=== PATIENT | female | born 1950 | race Caucasian/White ===

== ENCOUNTER 2023-03-21 15:26 | Outpatient (AMB) | payer MEDICARE, SELFPAY ==
[2023-03-21 16:26] VITALS: BP 124/74; PULSE 76; TEMP 36.6; O2SAT 98; BMI 41.9
--- NOTE | 2023-03-21 16:26 | AM.OFFWIN_ITS ---
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 ([phone]) Intake Note: pt is here for left ankle pain with swelling Patient Tobacco Use Status: Never used Tobacco Allergies No Known Allergies Allergy (Verified 03/24/23 17:19) Medication List - Last Reconciled 03/24/23 by Arya Mckeon MD escitalopram oxalate (Lexapro) 10 mg PO DAILY fluticasone propion-salmeterol 115-21 mcg/actuation (Advair HFA) 2 puffs inhalation BID loratadine (Claritin) 10 mg PO DAILY meloxicam 15 mg PO DAILY omeprazole 20 mg PO DAILY Do you need a note to return to daycare/school/sports/work: No 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 for a sick visit. Patient is relocating from [place]. In June of last year she had a fracture of the left ankle. No surgical procedure was done. Now in the past month she is having pain in the same area. Patient is using a cane to ambulate. [facility] Social History Patient Tobacco Use Status: Never used Tobacco Physical Exam Vital Signs: Last Vital Signs Temp 97.8 F 03/21/23 16:26 Pulse 76 03/21/23 16:26 BP 124/74 03/21/23 16:26 Pulse Ox 98 03/21/23 16:26 Oxygen Delivery Method Room Air 03/21/23 16:26 BMI result Body Mass Index 41.9 Back/Spine/Pelvis Other: Left ankle: Tenderness over the lateral malleolus. Pain on flexion and extension of the foot. Extrem Other: Ankle: Minimal swelling. Pain on flexion and extension. Tenderness around the malleoli Assessment & Plan Assessment & Plan (1) Right ankle sprain: Code(s): S93.401A - Sprain of unspecified ligament of right ankle, initial encounter Qualifiers: Encounter type: initial encounter Involved ligament of ankle: other ligament Qualified Code(s): S93.491A - Sprain of other ligament of right ankle, initial encounter Plan X-ray images were personally reviewed by me. No fractures seen. Reassurance. Meloxicam provided. If symptoms do not improve to follow-up here. Orders: Orders XR ankle LT min 3V 03/21/23 S93.402A - Sprain of unspecified ligament of left ankle, initial encounter Medications: New meloxicam 15 mg PO DAILY 14 tabs 0RF Coding Level of Care Code Est Pt Level 4 (49049) Diagnoses Sprain of other ligament of right ankle, initial encounter S93.491A Encounter type: initial encounter Involved ligament of ankle: other ligament
== END 2023-03-21 17:01 | disposition home or self-care (01) ==
PROVIDERS: PCP Internal Medicine; Visit Provider Internal Medicine
DX: S93.491A Sprain of other ligament of right ankle, initial encounter (principal)
CPT/HCPCS: 99214

== ENCOUNTER 2023-03-21 16:43 | Outpatient (REF) | payer MEDICARE, SELFPAY ==
--- NOTE | ~2023-03-21 | XR_ITS ---
EXAMINATION: XR ANKLE, LEFT CLINICAL INFORMATION: Sprain COMPARISON: None available. TECHNIQUE: AP, lateral, and mortise views of the left ankle. FINDINGS: Old healed distal fibular shaft fracture. No acute fracture or dislocation. Mild arthritis at the talar fibular joint. The ankle mortise is otherwise normal. Small plantar calcaneal spur. Normal soft tissues. XR/XR ankle LT min 3V IMPRESSION: No acute fracture or dislocation. Old healed distal fibular shaft fracture and degenerative changes at the lateral ankle joint.
== END 2023-03-21 16:44 | disposition home or self-care (01) ==
LOC: HO.HMGCX 16:43
PROVIDERS: PCP Internal Medicine; Visit Provider Internal Medicine
DX: S93.402A Sprain of unspecified ligament of left ankle, initial encounter (principal); X58.XXXA Exposure to other specified factors, initial encounter; Y93.9 Activity, unspecified; Y92.9 Unspecified place or not applicable; Y99.9 Unspecified external cause status
CPT/HCPCS: 73610

== ENCOUNTER 2023-06-16 09:57 | Outpatient (AMB) | payer MEDICARE, SELFPAY ==
--- NOTE | 2023-06-16 09:59 | MHC.PC.OV ---
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 Intake Note: Pt is here to [facility] care pt thinks last colon screen was last year last mammo was more then a year she thinks last Pap was December 2021 Allergies No Known Allergies Allergy (Verified 06/16/23 10:21) Medication List - Last Reconciled 06/16/23 by Anny Gallo MD cholecalciferol (vitamin D3) 25 mcg PO DAILY escitalopram oxalate 40 mg PO DAILY fluticasone propion-salmeterol 115-21 mcg/actuation (Advair HFA) 2 puffs inhalation BID fluticasone propionate 50 mcg/actuation (Flonase Allergy Relief) 2 sprays intranasal DAILY loratadine (Claritin) 10 mg PO DAILY omeprazole 20 mg PO DAILY Tobacco use date assessed: 06/16/23 Fall risk assessment: 1 Fall in past year Last assessed Fall Risk: 06/16/23 Dental Screening Dental Screen Date: 06/16/23 Did you have a dental visit in the last 12 months?: Yes Did you have a dental problem in the last 6 months where you did not have access to dental care?: No Was dental information given to patient?: Patient has 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 She just moved here from [place] last November 2022 . She has mild intermittent asthma complete shoulder on Advair and rarely needing to use her albuterol inhaler . She has osteoarthritis in her hip and right knee, status post left hip replacement in 2017, and underwent a revision of her surgery in 2020, now with good results. She has anxiety depression, stable and controlled on escitalopram 40 mg daily, which she has been on now for years. She has history of peptic ulcer disease and now is taking omeprazole as needed for her heartburn symptoms. Her last upper endoscopy was several years ago. However she states that she had a colonoscopy done in 2016, with the removal of a precancerous polyp. Patient states that she had a repeat colonoscopy done a year ago with negative findings, no polyps seen, and was told that she needs a repeat colonoscopy in 10 years . She takes loratadine and Flonase for her allergic rhinitis, has had allergy shots in the past which she states did not help at all. She states that she still gets Pap smears every 2 years at least, last 1 was done in 2021 with negative findings, and she states that she has had a mammogram last year with normal findings as well. Copy of her medical records were requested from [place]. [facility] Medical History (Updated 06/16/23 @ 11:51 by Anny Gallo MD) Allergic rhinitis Anxiety and depression Hyperlipidemia GERD (gastroesophageal reflux disease) History of peptic ulcer Mild intermittent asthma History of COVID-19 History of fracture of left ankle Surgical History (Updated 06/16/23 @ 10:51 by Anny Gallo MD) Status post total hip replacement, left Social History Housing: [facility] Patient Tobacco Use Status: Former Tobacco user e-Cigarette/Vaping Use: Never Used Second Hand Smoke Exposure: No Current occupational status: retired Cognitive needs: No Hearing needs: No Vision needs: No Questionnaire PHQ-9 Over the last 2 weeks, how often have you been bothered by any of the following problems? 1. Little interest or pleasure in doing things: not at all 2. Feeling down, depressed, or hopeless: not at all 3. Trouble falling or staying asleep, or sleeping too much: not at all 4. Feeling tired or having little energy: not at all 5. Poor appetite or overeating: not at all 6. Feeling bad about yourself - or that you are a failure or have let yourself or your family down: not at all 7. Trouble concentrating on things, such as reading the newspaper or watching television: not at all 8. Moving or speaking so slowly that other people could have noticed. Or the opposite - being so fidgety or restless that you have been moving around a lot more than usual: not at all 9. Thoughts that you would be better off or of hurting yourself in some way: not at all Total score: 0 Depression Screening Interpretation: Negative (Has anxiety depression , stable and controlled on escitalopram) Depression Screening Done: Yes 40014 - PHQ-9 Billing: Yes Source: Developed by Drs. Keyonna Craig, Kendell Shipman and colleagues, with an educational jesus from [employer]. Thrive Questionnaire Date Thrive assessed: 06/16/23 I am a: Patient What is your living situation today?: I have a steady place to live Within the past 12 months, did the food you bought not last and you didn't have the money to get more?: Never true Within the past 12 months, did you worry whether your food would run out before you got money to buy more?: Never true Do you have trouble paying for medicines?: No Do you have trouble getting transportation to medical appointments?: No Do you have trouble paying your heating and electricity bill?: No Do you have trouble taking care of your child, family member or friend?: No Do you have trouble with day-to-day activities such as bathing, preparing meals, shopping, managing finances, etc.?: No Are you currently unemployed and looking for a job?: No Are you interested in more education?: No AUDIT C Alcohol Use Questionnaire (AUDIT-C) 1. How often do you have a drink containing alcohol?: Never Total Score: 0 CARLITA-7 AMB Questionnaire CARLITA-7 Date CARLITA - 7 assessed: 06/16/23 Feeling nervous, anxious, or on edge: 0 = Not at all Not being able to stop or control worryin = Not at all Worrying too much about different things: 0 = Not at all Trouble relaxin = Not at all Being so restless that it is hard to sit still: 0 = Not at all Becoming easily annoyed or irritable: 0 = Not at all Feeling afraid as if something awful might happen: 0 = Not at all Total CARLITA-7 score (0-4 normal; 5-9 mild; 10-14 moderate; 15-21 severe): 0 Source: Developed by Drs. Yang Ryan, Keyonna Delacruz, Kendell Shipman and colleagues, with an educational jesus from [employer]. CARLITA-7 Assessment Billing CARLITA-7 Assessment Tool: CARLITA-7 Assessment 08791 Review of Systems Const Denies body aches, Denies fatigue, Denies fever(s), Denies headache(s) and Denies weakness Eyes Denies change in vision, Denies eye discharge and Denies itchy eyes ENT Denies dizziness, Denies headache(s), Denies nasal congestion, Denies nasal discharge and Denies sore throat Card Denies chest pain, Denies lightheadedness, Denies palpitations and Denies dyspnea Resp Denies chest congestion, Denies cough, Denies dyspnea and Denies wheezing GI Denies abdominal pain, Denies melena, Denies hematochezia, Denies change in bowel habits and Denies heartburn (Controlled on omeprazole) Reports no additional complaints, Denies hematuria, Denies urinary frequency, Denies dysuria and Denies urinary urgency Musc Reports stiffness Skin/Breast Denies breast pain, Denies breast mass, Denies lesions and Denies rash Neuro Denies dizziness, Denies headache(s) and Denies weakness Psych Reports as per HPI Endo Denies fatigue, Denies polydipsia, Denies polyuria and Denies palpitations Elliott/Lymph Denies easy bruising Aller/Immun Denies itchy eyes, Denies seasonal rhinorrhea and Denies wheezing Physical exam (Primary Care) Vital Signs: Last Vital Signs Pulse 68 06/16/23 10:00 BP 134/76 06/16/23 10:00 Pulse Ox 95 06/16/23 10:00 Oxygen Delivery Method Room Air 06/16/23 10:00 BMI result Body Mass Index 43.6 BMI Assessment/Plan discussion: High BMI High, discussed plan: lifestyle, weight reduction, dietary and physical activity Tobacco/Smoking Status: Tobacco use Status Tobacco use date assessed 06/16/23 06/16/23 10:08 Patient Tobacco Use Status Former Tobacco user 06/16/23 10:08 e-Cigarette/Vaping Use Never Used 06/16/23 10:08 Depression Screening Interpretation: Negative (Has anxiety depression , stable and controlled on escitalopram) Const General: comfortable, no acute distress and alert Nutritional Appearance: obese Orientation/consciousness: patient oriented x3 Limitations: no limitations HENMT Head: Yes normocephalic Ears: external ears normal General nose exam: Normal external nose present Face and sinus: Yes face symmetric Mouth: Normal oral and palatal mucosa present, oropharynx normal and moist mucous membranes Eyes General: appearance normal, both eyes and all related structures Periorbital: periorbital findings normal Eyelids: Yes eyelids normal Conjunctivae: conjunctivae normal Sclerae: sclerae normal EOM: EOMs intact bilaterally Neck Neck: Yes full ROM, Yes no lymphadenopathy and Yes supple Resp Effort & Inspection: normal respiratory effort and able to speak in complete sentences Auscultation: clear to auscultation bilaterally Cardio Rate: regular rate Rhythm: regular rhythm Heart sounds: S1 normal heart sound present and S2 normal heart sound present GI Palpation (GI): Soft to palpation, nontender and no masses Auscultation: normal bowel sounds Back/Spine/Pelvis Back: No back tenderness Neuro General: patient oriented x3, gait normal, tone normal, moves all extremities, Normal light touch and pain sensation and no focal motor deficits Cranial nerves: Yes CN's II-XII intact bilaterally Cognition (Neuro): normal cognition Extrem General: Yes full ROM and Yes no joint enlargement Psych Appearance: grossly normal and well kempt Mental Status: mental status grossly normal Speech and movement: Normal speech and movement present Affect: normal affect Attitude: cooperative Thought process: Normal thought process present Thought content: Normal thought content present, suicidality and no homicidality Assessment and Plan Assessment & Plan (1) Hyperlipidemia: Code(s): E78.5 - Hyperlipidemia, unspecified Plan: Fasting lipid panel ordered (2) GERD (gastroesophageal reflux disease): Code(s): K21.9 - Gastro-esophageal reflux disease without esophagitis Plan: Currently on omeprazole, CBC ordered (3) Mild intermittent asthma: Code(s): J45.20 - Mild intermittent asthma, uncomplicated Qualifiers: Asthma complication type: unspecified Qualified Code(s): J45.20 - Mild intermittent asthma, uncomplicated Plan: Continue with Advair and albuterol as needed. Already had her COVID booster and her flu shot as well as RSV, states that she had a pneumonia vaccine given by her previous PCP, waiting for copy of medical records from previous PCP (4) Allergic rhinitis: Code(s): J30.9 - Allergic rhinitis, unspecified Qualifiers: Allergic rhinitis trigger: unspecified Allergic rhinitis seasonality: non-seasonal Qualified Code(s): J30.89 - Other allergic rhinitis Plan: Refills prescription for Flonase and loratadine (5) Anxiety and depression: Code(s): F41.9 - Anxiety disorder, unspecified; F32.A - Depression, unspecified Plan: Stable controlled on escitalopram, refill sent for 40 mg once a day declines referral for therapy, states she does not needed anymore Orders: Orders Lipid Panel Today E78.5 - Hyperlipidemia, unspecified, E89.40 - Asymptomatic postprocedural ovarian failure, F32.A - Depression, unspecified, F41.9 - Anxiety disorder, unspecified, J45.20 - Mild intermittent asthma, uncomplicated, K21.9 - Gastro-esophageal reflux disease without esophagitis, Z86.16 - Personal history of COVID-19, Z87.11 - Personal history of peptic ulcer disease, Z87.81 - Personal history of (healed) traumatic fracture, Z96.642 - Presence of left artificial hip joint Complete Blood Count Auto Diff Today E78.5 - Hyperlipidemia, unspecified, E89.40 - Asymptomatic postprocedural ovarian failure, F32.A - Depression, unspecified, F41.9 - Anxiety disorder, unspecified, J45.20 - Mild intermittent asthma, uncomplicated, K21.9 - Gastro-esophageal reflux disease without esophagitis, Z86.16 - Personal history of COVID-19, Z87.11 - Personal history of peptic ulcer disease, Z87.81 - Personal history of (healed) traumatic fracture, Z96.642 - Presence of left artificial hip joint Comprehensive [place]. Panel Fast Today E78.5 - Hyperlipidemia, unspecified, E89.40 - Asymptomatic postprocedural ovarian failure, F32.A - Depression, unspecified, F41.9 - Anxiety disorder, unspecified, J45.20 - Mild intermittent asthma, uncomplicated, K21.9 - Gastro-esophageal reflux disease without esophagitis, Z86.16 - Personal history of COVID-19, Z87.11 - Personal history of peptic ulcer disease, Z87.81 - Personal history of (healed) traumatic fracture, Z96.642 - Presence of left artificial hip joint Vitamin D 25-OH Total Today E78.5 - Hyperlipidemia, unspecified, E89.40 - Asymptomatic postprocedural ovarian failure, F32.A - Depression, unspecified, F41.9 - Anxiety disorder, unspecified, J45.20 - Mild intermittent asthma, uncomplicated, K21.9 - Gastro-esophageal reflux disease without esophagitis, Z86.16 - Personal history of COVID-19, Z87.11 - Personal history of peptic ulcer disease, Z87.81 - Personal history of (healed) traumatic fracture, Z96.642 - Presence of left artificial hip joint Medications: New escitalopram oxalate 40 mg (2 x 20 mg) PO DAILY 3 months 180 tabs 3RF fluticasone propionate 50 mcg/actuation (Flonase Allergy Relief) administer into each nostril 2 sprays intranasal DAILY 3 months 3 inhalers 3RF loratadine (Claritin) 10 mg PO DAILY 90 tabs 3RF omeprazole 20 mg PO DAILY 90 caps 3RF Changed From fluticasone propion-salmeterol 115-21 mcg/actuation (Advair HFA) 1 puff inhalation BID To fluticasone propion-salmeterol 115-21 mcg/actuation (Advair HFA) 1 puff inhalation BID 3 months 36 grams 3RF Refilled loratadine (Claritin) 10 mg PO DAILY 90 tabs 3RF Coding Level of Care Code New Pt Level 4 (45987) Diagnoses Hyperlipidemia E78.5 GERD (gastroesophageal reflux disease) K21.9 Mild intermittent asthma, unspecified whether complicated J45.20 Asthma complication type: unspecified Non-seasonal allergic rhinitis, unspecified trigger J30.89 Allergic rhinitis trigger: unspecified Allergic rhinitis seasonality: non-seasonal Anxiety and depression F41.9; F32.A Additional Codes CARLITA-7 Assessment Billing - CARLITA-7 Assessment Tool: CARLITA-7 Assessment 66841 ([id number])
[2023-06-16 10:00] VITALS: BP 134/76; PULSE 68; O2SAT 95; BMI 43.6
== END 2023-06-16 11:07 | disposition home or self-care (01) ==
PROVIDERS: PCP Internal Medicine; Visit Provider Internal Medicine
DX: E78.5 Hyperlipidemia, unspecified (principal); K21.9 Gastro-esophageal reflux disease without esophagitis; J45.20 Mild intermittent asthma, uncomplicated; J30.89 Other allergic rhinitis; F41.9 Anxiety disorder, unspecified; F32.A Depression, unspecified
CPT/HCPCS: 99204

== ENCOUNTER 2023-06-16 11:07 | Outpatient (REF) | payer MEDICARE, SELFPAY ==
[2023-06-16 13:45] LABS: MANUAL DIFF FLAG NO
[2023-06-16 13:54] LABS: Basophils Percent Auto 0.4 % (0-2); Eosinophils Absolute Auto 0.1 X10*3/uL (0.0-0.4); Eosinophils Percent Auto 1.3 % (0-4); Hematocrit 40.2 % (37.0-47.0); Imm Gran Abs Auto 0.02 X10*3/uL (0.00-0.03); Imm Gran Pct Auto 0.4 % (0.0-0.4); Lymphocytes Absolute Auto 1.6 X10*3/uL (1.2-4.9); Lymphocytes Percent Auto 30.6 % (20-40); Mean Corpuscular HGB Conc 32.3 g/dl (31.0-35.0); Mean Corpuscular Hemoglobin 29.8 pg (27.0-33.0); Mean Corpuscular Volume 92.2 fL (80.0-98.0); Mean Platelet Volume 10.3 fL (9.4-12.3); Monocytes Absolute Auto 0.5 X10*3/uL (0.1-1.2); Monocytes Percent Auto 8.9 % (2-11); Neutrophils Absolute Auto 3.1 x10*3/uL (2.0-8.3); Neutrophils Percent Auto 58.4 % (45-73); Platelet Count 245 X10*3/uL (160-400); Red Blood Count 4.36 X10*6/uL (4.20-5.50); Red Cell Distribution Width 13.6 % (11.0-16.0); White Blood Count 5.3 X10*3/uL (4.8-10.8)
[2023-06-16 14:33] LABS: Alanine Aminotransferase 11 U/L (0-31); Albumin Level 4.3 g/dL (3.5-5.0); Alkaline Phosphatase 69 U/L (39-117); Anion Gap 12 (12-20); Aspartate Amino Transferase 20 U/L (5-31); Bilirubin Total 0.7 mg/dL (0.0-1.0); Blood Urea Nitrogen 15 mg/dL (9-16); Calcium 9.9 mg/dL (8.4-10.2); Carbon Dioxide 29 mmol/L (22-29); Chloride 106 mmol/L (96-108); Cholesterol 237 mg/dL (<200); Estimated Glomerular Filt Rate > 60; Glucose Fasting 91 mg/dL (60-99); HDL Cholesterol 84 mg/dL (>40); LDL Cholesterol Calculated 143 mg/dL (<100); Potassium 4.5 mmol/L (3.3-5.1); Sodium 142 mmol/L (135-145); Total Protein 7.4 g/dL (6.5-8.0); Triglycerides 51 mg/dL (<150)
[2023-06-16 15:49] LABS: Vitamin D 25-OH Total 74.5 ng/mL (>30)
== END 2023-06-16 11:08 | disposition home or self-care (01) ==
LOC: HO.HMGCLDS 11:07
PROVIDERS: PCP Internal Medicine; Visit Provider Internal Medicine
DX: E89.40 Asymptomatic postprocedural ovarian failure (principal); J45.20 Mild intermittent asthma, uncomplicated; K21.9 Gastro-esophageal reflux disease without esophagitis; E78.5 Hyperlipidemia, unspecified; F41.9 Anxiety disorder, unspecified; F32.A Depression, unspecified; Z87.11 Personal history of peptic ulcer disease; Z87.81 Personal history of (healed) traumatic fracture; Z86.16 Personal history of COVID-19
CPT/HCPCS: 36415; 80053; 80061; 82306; 85025

== ENCOUNTER 2023-10-02 09:49 | Outpatient (AMB) | payer MEDICARE, SELFPAY ==
--- NOTE | 2023-10-02 10:14 | MHC.PC.OV ---
Vital Signs 10/02/23 10:34 Height 5 ft 5 in Weight 266 lb BMI 44.3 BP 130/78 Blood Pressure Location Lt brachial Position Sitting Pulse 68 Pulse Source Pulse Oximeter Pulse Oximetry (%) 97 Oxygen Delivery Method Room Air Intake Visit Reasons: pre-op Rt eye 4/3 Lt eye 10/31 Dr. Alicea Intake Note: Pt is here today for her pre-op cataract surgery Rt eye 4/3 & Lt eye 10/[address] Alicea Allergies No Known Allergies Allergy (Verified 10/02/23 10:45) Medication List - Last Reconciled 10/02/23 by Anny Gallo MD cholecalciferol (vitamin D3) 25 mcg PO DAILY escitalopram oxalate 40 mg (2 x 20 mg) PO DAILY 3 months fluticasone propion-salmeterol 115-21 mcg/actuation (Advair HFA) 1 puff inhalation BID 3 months fluticasone propionate 50 mcg/actuation (Flonase Allergy Relief) 2 sprays intranasal DAILY 3 months loratadine (Claritin) 10 mg PO DAILY omega-3 fatty acids 1,000 mg PO DAILY omeprazole 20 mg PO DAILY Tobacco use date assessed: 10/02/23 Fall risk assessment: No Falls in past year Last assessed Fall Risk: 10/02/23 Dental Screening Dental Screen Date: 10/02/23 Did you have a dental visit in the last 12 months?: Yes Did you have a dental problem in the last 6 months where you did not have access to dental care?: No Was dental information given to patient?: Patient has dentist HPI pre-op Rt eye 4/3 Lt eye 10/31 Dr. Alicea HPI Details 73-year-old lady with history of anxiety and depression currently stable and controlled on escitalopram 40 mg daily, has gastroesophageal reflux disease controlled on omeprazole, mild intermittent asthma, hyperlipidemia controlled with diet, here today for preoperative exam for her cataract surgery scheduled for 10/11/2023 OD and 11/01/2023 OS , requested by Dr. Alicea. She has been feeling well except for recurrent episodes of pain and stiffness in both knees , right greater than the left. Has been taking Tylenol arthritis which affords only temporary relief PFSH Medical History Bilateral knee pain Allergic rhinitis Anxiety and depression Hyperlipidemia GERD (gastroesophageal reflux disease) History of peptic ulcer Mild intermittent asthma History of COVID-19 History of fracture of left ankle Surgical History Status post total hip replacement, left [facility] Tobacco Use Status: Former Tobacco user e-Cigarette/Vaping Use: Never Used Second Hand Smoke Exposure: No Current occupational status: retired Cognitive needs: No Hearing needs: No Vision needs: No Questionnaire Thrive Questionnaire Date Thrive assessed: 06/16/23 AUDIT C Alcohol Use Questionnaire (AUDIT-C) 1. How often do you have a drink containing alcohol?: Never Total Score: 0 CARLITA-7 AMB Questionnaire CARLITA-7 Date CARLITA - 7 assessed: 06/16/23 Feeling nervous, anxious, or on edge: 1 = Several days Not being able to stop or control worryin = Not at all Worrying too much about different things: 1 = Several days Trouble relaxin = Not at all Being so restless that it is hard to sit still: 0 = Not at all Becoming easily annoyed or irritable: 1 = Several days Feeling afraid as if something awful might happen: 0 = Not at all Total CARLITA-7 score (0-4 normal; 5-9 mild; 10-14 moderate; 15-21 severe): 3 Source: Developed by Drs. Yang Ryan, Keyonna Delacruz, Kendell Shipman and colleagues, with an educational jesus from [employer]. CARLITA-7 Assessment Billing CARLITA-7 Assessment Tool: CARLITA-7 Assessment 91109 Review of Systems Const Denies body aches, Denies fatigue, Denies fever(s), Denies headache(s) and Denies weakness Eyes Reports blurry vision ENT Denies dizziness, Denies headache(s), Denies nasal congestion, Denies nasal discharge and Denies sore throat Card Denies chest pain, Denies lightheadedness, Denies palpitations and Denies dyspnea Resp Denies chest congestion, Denies cough, Denies dyspnea and Denies wheezing GI Denies abdominal pain, Denies melena, Denies hematochezia, Denies change in bowel habits and Denies heartburn (Controlled on omeprazole) Reports no additional complaints, Denies hematuria, Denies urinary frequency, Denies dysuria and Denies urinary urgency Musc Reports as per HPI and Reports stiffness Skin/Breast Denies breast pain, Denies breast mass, Denies lesions and Denies rash Neuro Denies dizziness, Denies headache(s) and Denies weakness Psych Reports as per HPI Endo Denies fatigue, Denies polydipsia, Denies polyuria and Denies palpitations Elliott/Lymph Denies easy bruising Aller/Immun Denies seasonal rhinorrhea and Denies wheezing Physical exam (Primary Care) Vital Signs: Last Vital Signs Pulse 68 10/02/23 10:34 BP 130/78 10/02/23 10:34 Pulse Ox 97 10/02/23 10:34 Oxygen Delivery Method Room Air 10/02/23 10:34 BMI result Body Mass Index 44.3 BMI Assessment/Plan discussion: High BMI High, discussed plan: lifestyle, weight reduction, dietary and physical activity Tobacco/Smoking Status: Tobacco use Status Tobacco use date assessed 10/02/23 10/02/23 10:19 Patient Tobacco Use Status Former Tobacco user 10/02/23 10:15 e-Cigarette/Vaping Use Never Used 10/02/23 10:15 Thrive Assessment: Date of Thrive Assessment Date Thrive assessed 06/16/23 10/02/23 10:15 Const General: comfortable, no acute distress and alert Nutritional Appearance: obese Orientation/consciousness: patient oriented x3 HENMT Head: Yes normocephalic Ears: external ears normal General nose exam: Normal external nose present Face and sinus: Yes face symmetric Mouth: Normal oral and palatal mucosa present, oropharynx normal and moist mucous membranes Eyes General: appearance normal, both eyes and all related structures Periorbital: periorbital findings normal Eyelids: Yes eyelids normal Conjunctivae: conjunctivae normal Sclerae: sclerae normal EOM: EOMs intact bilaterally Neck Neck: Yes full ROM, Yes no lymphadenopathy and Yes supple Resp Effort & Inspection: normal respiratory effort and able to speak in complete sentences Auscultation: clear to auscultation bilaterally Cardio Rate: regular rate Rhythm: regular rhythm Heart sounds: S1 normal heart sound present and S2 normal heart sound present GI Palpation (GI): Soft to palpation, nontender and no masses Auscultation: normal bowel sounds Back/Spine/Pelvis Back: No back tenderness Neuro General: patient oriented x3, gait normal, tone normal, moves all extremities, Normal light touch and pain sensation and no focal motor deficits Cranial nerves: Yes CN's II-XII intact bilaterally Cognition (Neuro): normal cognition Extrem Other: Crepitus noted in both knees General: Yes full ROM Psych Appearance: grossly normal and well kempt Mental Status: mental status grossly normal Speech and movement: Normal speech and movement present Affect: normal affect Attitude: cooperative Thought process: Normal thought process present Thought content: Normal thought content present Assessment and Plan Assessment & Plan (1) Preoperative examination: Code(s): Z01.818 - Encounter for other preprocedural examination Plan: 73 year old lady here for preoperative exam. Pt for cataract surgery, 10/11/2023 OD and 11/01/2023 OS, requested by Dr. Alicea. Preoperative exam is unremarkable. She has a low cardiac risk index for proposed surgery (2) Bilateral knee pain: Code(s): M25.561 - Pain in right knee; M25.562 - Pain in left knee Qualifiers: Chronicity: chronic Qualified Code(s): M25.561 - Pain in right knee; M25.562 - Pain in left knee; G89.29 - Other chronic pain Plan: X-ray of left and right knee ordered, referred to orthopedics for further evaluation and management (3) Allergic rhinitis: Code(s): J30.9 - Allergic rhinitis, unspecified Qualifiers: Allergic rhinitis seasonality: non-seasonal Allergic rhinitis trigger: unspecified Qualified Code(s): J30.89 - Other allergic rhinitis Plan: Refill sent for her Flonase nasal spray (4) Anxiety and depression: Code(s): F41.9 - Anxiety disorder, unspecified; F32.A - Depression, unspecified Plan: Continue with escitalopram 40 mg daily (5) Hyperlipidemia: Code(s): E78.5 - Hyperlipidemia, unspecified Qualifiers: Hyperlipidemia type: pure hypercholesterolemia Qualified Code(s): E78.00 - Pure hypercholesterolemia, unspecified Plan: Continue [place] 3 fatty acid supplement, in addition to adhering to a low-cholesterol diet getting regular exercise (6) Mild intermittent asthma: Code(s): J45.20 - Mild intermittent asthma, uncomplicated Qualifiers: Asthma complication type: unspecified Qualified Code(s): J45.20 - Mild intermittent asthma, uncomplicated Plan: Continue with fluticasone propionate-salmeterol 115-21 mcg per actuation, 1 puff twice a day. Reminded patient to gargle after use Orders: Orders XR knee LT 4V Today M25.561 - Pain in right knee, M25.562 - Pain in left knee XR knee RT 4V Today M25.561 - Pain in right knee, M25.562 - Pain in left knee Referrals Orthopedics Referral M25.561 - Pain in right knee, M25.562 - Pain in left knee Medications: Refilled fluticasone propionate 50 mcg/actuation (Flonase Allergy Relief) administer into each nostril 2 sprays intranasal DAILY 3 months 3 inhalers 3RF Coding Level of Care Code Est Pt Level 4 (72676) Diagnoses Preoperative examination Z01.818 Chronic pain of both knees M25.561; M25.562; G89.29 Chronicity: chronic Non-seasonal allergic rhinitis, unspecified trigger J30.89 Allergic rhinitis seasonality: non-seasonal Allergic rhinitis trigger: unspecified Anxiety and depression F41.9; F32.A Pure hypercholesterolemia E78.00 Hyperlipidemia type: pure hypercholesterolemia Mild intermittent asthma, unspecified whether complicated J45.20 Asthma complication type: unspecified Additional Codes CARLITA-7 Assessment Billing - CARLITA-7 Assessment Tool: CARLITA-7 Assessment 16348 ([id number])
[2023-10-02 10:34] VITALS: BP 130/78; PULSE 68; O2SAT 97; BMI 44.3
== END 2023-10-02 14:41 | disposition home or self-care (01) ==
PROVIDERS: PCP Internal Medicine; Visit Provider Internal Medicine
DX: M25.561 Pain in right knee (principal); M25.562 Pain in left knee; Z01.818 Encounter for other preprocedural examination; G89.29 Other chronic pain; J30.89 Other allergic rhinitis; F41.9 Anxiety disorder, unspecified; F32.A Depression, unspecified; E78.00 Pure hypercholesterolemia, unspecified; J45.20 Mild intermittent asthma, uncomplicated
CPT/HCPCS: 99214

== ENCOUNTER 2023-10-31 07:56 | Outpatient (REF) | payer MEDICARE, SELFPAY ==
--- NOTE | ~2023-10-31 | XR_ITS ---
EXAMINATION: XR KNEE, LEFT CLINICAL INFORMATION: Pain in left knee COMPARISON: None available. TECHNIQUE: Four views of the left knee. FINDINGS: No fracture or dislocation. There is marked narrowing of the medial joint compartment. There is moderate narrowing of the patellofemoral joint compartment. There are tricompartment marginal osteophytes. Small calcific density seen posterior to the knee on the lateral view likely represents a loose body within the knee joint. XR/XR knee LT 3V IMPRESSION: 1. Marked osteoarthritis. 2. Probable loose body within the knee joint.
--- NOTE | ~2023-10-31 | XR_ITS ---
EXAMINATION: XR KNEE, RIGHT CLINICAL INFORMATION: Pain in right knee COMPARISON: None available. TECHNIQUE: Four views of the right knee. FINDINGS: No fracture or dislocation. There is marked narrowing of the medial joint compartment. There is moderate narrowing of the patellofemoral joint compartment. There are tricompartment marginal osteophytes. Quadriceps enthesopathy is noted tiny calcific density posterior to the knee on the lateral view may represent a small loose body within the joint. XR/XR knee RT 3V IMPRESSION: 1. Marked osteoarthritis. 2. Possible small loose body within the joint.
== END 2023-10-31 07:57 | disposition home or self-care (01) ==
LOC: HO.HOSX 07:56
PROVIDERS: Visit Provider Orthopaedic Surgery
DX: M25.561 Pain in right knee (principal); M25.562 Pain in left knee; G89.29 Other chronic pain
CPT/HCPCS: 73562; 99202

== ENCOUNTER 2023-10-31 10:58 | Outpatient (AMB) | payer MEDICARE, SELFPAY ==
--- NOTE | 2023-10-31 09:13 | MHC.OFFVIS ---
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 Patient reports her pain has been going on for about 2 years and is a 5 on the 1-10 pain scale and is using tylenol arthritis for the pain with minimal relief. She states both knees are the same. She reports that she has had 2 falls over the past 2 years. She has had injections in the knees with little relief. She states that her son works as an orthopedic surgeon in [place]. The patient did undergo left total hip replacement surgery and subsequent revision surgeries while living in [place] several years ago. She wishes to hold off on total knee replacement surgery for as long as possible. Allergies No Known Allergies Allergy (Verified 10/31/23 11:24) Medication List - Last Reconciled 11/01/23 by Abraham Hogue MD cholecalciferol (vitamin D3) 25 mcg PO DAILY escitalopram oxalate 40 mg (2 x 20 mg) PO DAILY 3 months fluticasone propion-salmeterol 115-21 mcg/actuation (Advair HFA) 1 puff inhalation BID 3 months fluticasone propionate 50 mcg/actuation (Flonase Allergy Relief) 2 sprays intranasal DAILY 3 months loratadine (Claritin) 10 mg PO DAILY omega-3 fatty acids 1,000 mg PO DAILY omeprazole 20 mg PO DAILY prednisolone acetate 1% drps ophthalmic (eye) [facility] Medical History Bilateral knee pain Allergic rhinitis Anxiety and depression Hyperlipidemia GERD (gastroesophageal reflux disease) History of peptic ulcer Mild intermittent asthma History of COVID-19 History of fracture of left ankle Surgical History Status post total hip replacement, left [facility] Tobacco Use Status: Former Tobacco user e-Cigarette/Vaping Use: Never Used Second Hand Smoke Exposure: No Current occupational status: retired Cognitive needs: No Hearing needs: No Vision needs: No Physical Exam Vital Signs: BMI result Body Mass Index 44.3 Const Other: Well-nourished well-developed very friendly female awake alert and oriented x3 in no acute distress Extrem Other: Bilateral lower extremity examination shows good capillary refill, no skin lesions noted, normal sensation light touch Bilateral knee examination shows minimal effusions, palpable crepitus with range of motion, pain with range of motion, range of motion from -3 degrees to 115 degrees, no instability Results Reviewed Results Reviewed: X-rays of the patient's bilateral knee show joint space narrowing, subchondral sclerosis, no acute bony abnormalities Assessment & Plan Assessment & Plan (1) Bilateral knee pain: Code(s): M25.561 - Pain in right knee; M25.562 - Pain in left knee Category: Medical Qualifiers: Chronicity: chronic Qualified Code(s): M25.561 - Pain in right knee; M25.562 - Pain in left knee; G89.29 - Other chronic pain Plan Ms. Espinoza presents with bilateral knee pains due to degenerative joint disease. I had a lengthy discussion with the patient regarding the treatment options. At this point the patient's symptoms are tolerable to her. She will continue with her activity modifications. She will follow up with me on an as-needed basis should her symptoms worsen in any way. Feel free to call me at any time should questions regarding her orthopedic management arise. I spent 22 minutes in reviewing the patient's records and imaging studies, seeing the patient and documenting in the medical record. Orders: Orders XR knee LT 3V 10/31/23 M25.562 - Pain in left knee XR knee RT 3V 10/31/23 M25.561 - Pain in right knee Coding Level of Care Code New Pt Level 2 (08567) Diagnoses Chronic pain of both knees M25.561; M25.562; G89.29 Chronicity: chronic
[2023-10-31 10:59] VITALS: BMI 44.3
== END 2023-10-31 12:02 | disposition home or self-care (01) ==
PROVIDERS: PCP Internal Medicine; Visit Provider Orthopaedic Surgery
DX: M25.561 Pain in right knee (principal); M25.562 Pain in left knee; G89.29 Other chronic pain
CPT/HCPCS: 99202

== ENCOUNTER 2023-12-01 10:19 | Outpatient (AMB) | payer MEDICARE, SELFPAY ==
--- NOTE | 2023-12-01 10:22 | MHC.OFFVIS ---
Vital Signs 12/01/23 10:37 Height 5 ft 5 in Weight 276 lb 6 oz BMI 46.0 BP 134/80 Blood Pressure Location Rt brachial Position Sitting Pulse 68 Pulse Source Pulse Oximeter Pulse Oximetry (%) 94 Oxygen Delivery Method Room Air Intake Visit Reasons: INP: BK - LVM w/add Intake Note: Patient presents for BK. Allergies chocolate Allergy (Mild, Verified 12/01/23 10:31) Unknown eggs Allergy (Mild, Uncoded 12/01/23 10:31) Diarrhea Medication List - Last Reconciled 12/01/23 by Desiree Mckenzie MD cholecalciferol (vitamin D3) 25 mcg PO DAILY escitalopram oxalate 40 mg (2 x 20 mg) PO DAILY 3 months fluticasone propion-salmeterol 115-21 mcg/actuation (Advair HFA) 1 puff inhalation BID 3 months fluticasone propionate 50 mcg/actuation (Flonase Allergy Relief) 2 sprays intranasal DAILY 3 months ketorolac 0.5% drps ophthalmic (eye) loratadine (Claritin) 10 mg PO DAILY omega-3 fatty acids 1,000 mg PO DAILY omeprazole 20 mg PO DAILY HPI Comments Details: 73y/o female with h/o Obstructive Sleep APnea comes for further management she was diagnosed 20 years ago and she was living in [facility] at that time. she was started on CPAP and has been on it since then CPAP helps with her sleep onset, sleep maintainance, snoring and daytime sleepiness, witnessed apneas, gasping arousals etc. she also has restless legs and has more symptoms when tired. Her CPAP is about 4 years old . [facility] Medical History Cataracts, both eyes BK on CPAP Bilateral knee pain Allergic rhinitis Anxiety and depression Hyperlipidemia GERD (gastroesophageal reflux disease) History of peptic ulcer Mild intermittent asthma History of COVID-19 History of fracture of left ankle Surgical History Status post total hip replacement, left Family History Father Colon cancer Mother Hypertension Sister Breast CA Social History Housing: Condominium Patient Tobacco Use Status: Former Tobacco user e-Cigarette/Vaping Use: Never Used Second Hand Smoke Exposure: No Current occupational status: retired Cognitive needs: No Hearing needs: No Vision needs: No Physical Exam Vital Signs: Last Vital Signs Pulse 68 12/01/23 10:37 BP 134/80 12/01/23 10:37 Pulse Ox 94 12/01/23 10:37 Oxygen Delivery Method Room Air 12/01/23 10:37 BMI result Body Mass Index 46.0 Const General: cooperative, healthy appearing and comfortable Nutritional Appearance: obese Orientation/consciousness: patient oriented x3 Eyes Pupils: Equal, round and reactive pupils present Neuro General: patient oriented x3, tone normal, moves all extremities and no focal motor deficits Cranial nerves: Yes Facial sensation intact/muscles of mastication intact, Yes Equal, round and reactive pupils present, Yes Bilaterally intact EOM present, Yes Nystagmus not present, Yes Normal facial strength present, Yes Midline tongue present, Yes Symmetric palate elevation present and Yes Ability to bilaterally elevate shoulders present Cognition (Neuro): normal cognition Gait exam (Neuro): Normal gait present Motor exam (neuro): 5/5 motor strength present throughout and Normal motor muscle tone present throughout Deep tendon reflexes (DTR's): Right triceps reflex intensity grade: 1+, Left triceps reflex intensity grade: 1+, Rt Biceps (C5, C6): 1+, Left biceps reflex intensity grade: 1+, Right brachioradialis reflex intensity grade: 1+, Left brachioradialis reflex intensity grade: 1+, Right patellar reflex intensity grade: 1+ and Left patellar reflex intensity grade: 1+ Coordination: [id number] test normal Assessment & Plan Assessment & Plan (1) BK on CPAP: Code(s): G47.33 - Obstructive sleep apnea (adult) (pediatric) Category: Medical Plan Reevaluate with home sleep test. will call [facility] to get compliance report [email or web address] ujv:[phone] Orders: Orders RT home sleep study Today G47.10 - Hypersomnia, unspecified, R06.83 - Snoring Coding Level of Care Code New Pt Level 3 (07738) Diagnoses BK on CPAP G47.33
[2023-12-01 10:37] VITALS: BP 134/80; PULSE 68; O2SAT 94; BMI 46.0
== END 2023-12-01 11:02 | disposition home or self-care (01) ==
PROVIDERS: PCP Internal Medicine; Visit Provider Psychiatry & Neurology Neurology
DX: G47.33 Obstructive sleep apnea (adult) (pediatric) (principal)
CPT/HCPCS: 99203; 99213

== ENCOUNTER → 2023-12-01 10:19 | Outpatient (BNVA) | payer MEDICARE, SELFPAY | PROVIDERS: PCP Internal Medicine; Visit Provider Psychiatry & Neurology Neurology | DX: G47.33 Obstructive sleep apnea (adult) (pediatric) (principal) | CPT/HCPCS: 99202 ==

== ENCOUNTER 2024-01-01 12:08 | Outpatient (AMB) | payer MEDICARE, SELFPAY ==
[2024-01-01 12:15] VITALS: BP 142/82; PULSE 69; O2SAT 94; BMI 46.3
--- NOTE | 2024-01-01 12:15 | A.OFFPC_ITS ---
Vital Signs 01/01/24 12:15 Height 5 ft 5 in Weight 278 lb BMI 46.3 BP 142/82 H Blood Pressure Location Lt radial Position Sitting Pulse 69 Pulse Source Pulse Oximeter Pulse Oximetry (%) 94 Oxygen Delivery Method Room Air Intake Visit Reasons: left hip pain, s/p replacement in 2018 Intake Note: Pt is here today c/o Lt hip pain: Hx of replacement 2018 Allergies chocolate Allergy (Mild, Verified 01/01/24 12:28) Unknown eggs Allergy (Mild, Uncoded 01/01/24 12:28) Diarrhea Medication List - Last Reconciled 01/01/24 by Anny Gallo MD cholecalciferol (vitamin D3) 25 mcg PO DAILY escitalopram oxalate 40 mg (2 x 20 mg) PO DAILY 3 months fluticasone propion-salmeterol 115-21 mcg/actuation (Advair HFA) 1 puff inhalation BID 3 months fluticasone propionate 50 mcg/actuation (Flonase Allergy Relief) 2 sprays intranasal DAILY 3 months ketorolac 0.5% drps ophthalmic (eye) loratadine (Claritin) 10 mg PO DAILY omega-3 fatty acids 1,000 mg PO DAILY omeprazole 20 mg PO DAILY Tobacco use date assessed: 01/01/24 Fall risk assessment: 2 + Falls in past year Last assessed Fall Risk: 01/01/24 Dental Screening Dental Screen Date: 10/02/23 Did you have a dental visit in the last 12 months?: Yes Did you have a dental problem in the last 6 months where you did not have access to dental care?: No Was dental information given to patient?: Patient has dentist HPI left hip pain, s/p replacement in 2018 HPI Details 73-year-old lady here today complaining of pain in her left hip, radiating down left thigh, which has been present now for the last several days. She has had left hip replacement in 2018, and had to have it debrided 3 weeks after surgery due to infection. Denies any recent trauma, no history of fall or strenuous exertion. He has just been taking Tylenol and massaging affected area with with arthritis cream which only affords temporary relief. She also would like a referral to see a child care centre director, has been complaining of for thick toenails on right 3rd and 4th toe, which has been very difficult to clip. Patient states that it is very uncomfortable to wear closed shoes . [facility] Medical History (Updated 01/01/24 @ 12:34 by Anny Gallo MD) Left hip pain History of revision of total replacement of left hip joint Hypersomnia Snoring Cataracts, both eyes BK on CPAP Bilateral knee pain Allergic rhinitis Anxiety and depression Hyperlipidemia GERD (gastroesophageal reflux disease) History of peptic ulcer Mild intermittent asthma History of COVID-19 History of fracture of left ankle Surgical History Status post total hip replacement, left Family History Father Colon cancer Mother Hypertension Sister Breast CA Social History Housing: [facility] Patient Tobacco Use Status: Former Tobacco user e-Cigarette/Vaping Use: Never Used Second Hand Smoke Exposure: No Current occupational status: retired Cognitive needs: No Hearing needs: No Vision needs: No Questionnaire PHQ-9 Over the last 2 weeks, how often have you been bothered by any of the following problems? 1. Little interest or pleasure in doing things: not at all 2. Feeling down, depressed, or hopeless: several days 3. Trouble falling or staying asleep, or sleeping too much: not at all 4. Feeling tired or having little energy: more than half the days 5. Poor appetite or overeating: more than half the days 6. Feeling bad about yourself - or that you are a failure or have let yourself or your family down: not at all 7. Trouble concentrating on things, such as reading the newspaper or watching television: not at all 8. Moving or speaking so slowly that other people could have noticed. Or the opposite - being so fidgety or restless that you have been moving around a lot more than usual: not at all 9. Thoughts that you would be better off or of hurting yourself in some way: not at all Total score: 5 Depression Screening Interpretation: Positive (Currently on escitalopram 40 mg daily) Depression Screening Follow-up: Existing condition, In treatment and Community Mental Health Worker F/U Depression Screening Done: Yes 01178 - PHQ-9 Billing: Yes Source: Developed by Drs. Yang Ryan, Keyonna Delacruz, Kendell Shipman and colleagues, with an educational jesus from [employer]. Thrive Questionnaire Date Thrive assessed: 01/01/24 I am a: Patient What is your living situation today?: I have a steady place to live Within the past 12 months, did the food you bought not last and you didn't have the money to get more?: Never true Within the past 12 months, did you worry whether your food would run out before you got money to buy more?: Never true Do you have trouble paying for medicines?: No Do you have trouble getting transportation to medical appointments?: No Do you have trouble paying your heating and electricity bill?: No Do you have trouble taking care of your child, family member or friend?: No Do you have trouble with day-to-day activities such as bathing, preparing meals, shopping, managing finances, etc.?: No Are you currently unemployed and looking for a job?: No Are you interested in more education?: No THRIVE Score: 0 CARLITA-7 AMB Questionnaire CARLITA-7 Date CARLITA - 7 assessed: 01/01/24 Feeling nervous, anxious, or on edge: 0 = Not at all Not being able to stop or control worryin = Not at all Worrying too much about different things: 0 = Not at all Trouble relaxin = Not at all Being so restless that it is hard to sit still: 1 = Several days Becoming easily annoyed or irritable: 1 = Several days Feeling afraid as if something awful might happen: 0 = Not at all Total CARLITA-7 score (0-4 normal; 5-9 mild; 10-14 moderate; 15-21 severe): 2 Source: Developed by Drs. Yang Ryan, Keyonna Delacruz, Kendell Shipman and colleagues, with an educational jesus from [employer]. CARLITA-7 Assessment Billing CARLITA-7 Assessment Tool: CARLITA-7 Assessment 84767 Review of Systems Const Reports no additional complaints ENT Reports no additional complaints Card Denies chest pain, Denies edema, Denies irregular heart rhythm, Denies lightheadedness and Denies dyspnea Resp Denies cough and Denies dyspnea GI Reports no additional complaints Reports no additional complaints Musc Reports as per HPI Physical exam (Primary Care) Vital Signs: Last Vital Signs Pulse 69 01/01/24 12:15 BP 142/82 H 01/01/24 12:15 Pulse Ox 94 01/01/24 12:15 Oxygen Delivery Method Room Air 01/01/24 12:15 BMI result Body Mass Index 46.3 Tobacco/Smoking Status: Tobacco use Status Tobacco use date assessed 01/01/24 01/01/24 12:20 Patient Tobacco Use Status Former Tobacco user 01/01/24 12:20 e-Cigarette/Vaping Use Never Used 01/01/24 12:20 PHQ-9: PHQ-9 Score PHQ-9: Total score 5 01/03/24 00:07 Depression Screening Interpretation: Positive (Currently on escitalopram 40 mg daily) Depression Screening Follow-up: Existing condition, In treatment and Community Mental Health Worker F/U Thrive Assessment: Date of Thrive Assessment Date Thrive assessed 01/01/24 01/01/24 14:17 Const General: no acute distress and alert Nutritional Appearance: obese Orientation/consciousness: patient oriented x3 HENMT General nose exam: Normal external nose present Face and sinus: Yes face symmetric Mouth: Normal oral and palatal mucosa present, oropharynx normal and moist mucous membranes Eyes General: appearance normal, both eyes and all related structures Neck Neck: Yes full ROM, Yes no lymphadenopathy and Yes supple Resp Effort & Inspection: normal respiratory effort and able to speak in complete sentences Auscultation: clear to auscultation bilaterally Cardio Rate: regular rate Rhythm: regular rhythm Heart sounds: S1 normal heart sound present and S2 normal heart sound present GI Palpation (GI): Soft to palpation, nontender and no masses Auscultation: normal bowel sounds Back/Spine/Pelvis Back: No back tenderness Skin Nails: yellow and thickened (Toenails on right 3rd and 4th toe) Neuro General: patient oriented x3, tone normal, moves all extremities, Normal light touch and pain sensation and no focal motor deficits Cranial nerves: Yes CN's II-XII intact bilaterally Cognition (Neuro): normal cognition Gait exam (Neuro): Assisted gait required (cane) Extrem Other: Crepitus noted in both knees General: Yes full ROM, Yes no joint enlargement, Yes no clubbing, cyanosis or edema, Yes no calf tenderness and Yes Limp noted Assessment and Plan Assessment & Plan (1) Left hip pain: Code(s): M25.552 - Pain in left hip Plan: Ordered x-ray of her left hip joint and pelvis, and referred back to orthopedic s for further evaluation management, not responding well to conservative measures (2) Acquired deformity of toenail: Code(s): L60.8 - Other nail disorders Plan: Podiatry consult ordered Orders: Orders XR hip LT w PEL1V 01/01/24 M25.552 - Pain in left hip Referrals Podiatry Referral L60.8 - Other nail disorders Orthopedics Referral M25.552 - Pain in left hip Coding Level of Care Code Est Pt Level 4 (43127) Diagnoses Left hip pain M25.552 Acquired deformity of toenail L60.8 Additional Codes CARLITA-7 Assessment Billing - CARLITA-7 Assessment Tool: CARLITA-7 Assessment 26046 ([id number])
== END 2024-01-01 14:17 | disposition home or self-care (01) ==
PROVIDERS: PCP Internal Medicine; Visit Provider Internal Medicine
DX: M25.552 Pain in left hip (principal); L60.8 Other nail disorders
CPT/HCPCS: 99214

== ENCOUNTER 2024-01-01 12:47 | Outpatient (REF) | payer MEDICARE, SELFPAY ==
--- NOTE | ~2024-01-01 | XR_ITS ---
EXAMINATION: XR HIP, LEFT WITH AP PELVIS CLINICAL INFORMATION: Pain. COMPARISON: None available. TECHNIQUE: AP and frog-leg lateral views of the left hip. FINDINGS: Prosthetic components of the left total hip arthroplasty are appropriately aligned without periprosthetic fracture or abnormal lucency. No component migration. There is moderate narrowing of the right acetabular joint space. The right femoral head is smooth. Soft tissues are normal. XR/XR hip LT w PEL1V IMPRESSION: 1. Appropriate alignment of the left total hip arthroplasty without surrounding abnormalities. 2. There is moderate osteoarthritic change of the right hip.
== END 2024-01-01 12:48 | disposition home or self-care (01) ==
LOC: HO.HMGCX 12:47
PROVIDERS: PCP Internal Medicine; Visit Provider Internal Medicine
DX: M25.552 Pain in left hip (principal)
CPT/HCPCS: 73502

== ENCOUNTER 2024-01-31 09:31 | Outpatient (REF) | payer MEDICARE, SELFPAY ==
--- NOTE | ~2024-01-31 | XR_ITS ---
EXAMINATION: XR LUMBOSACRAL SPINE CLINICAL INFORMATION: Low back pain. COMPARISON: None available. TECHNIQUE: Three views of the lumbosacral spine. FINDINGS: Vertebral body height is normal. No fracture. At L5-S1, there is mild grade 1 anterolisthesis of L5 on S1. There are multilevel degenerative disc changes manifest by endplate osteophytes and disc space narrowing at all lumbar levels. Similar-appearing degenerative disc changes and spondylosis noted in the partially visualized dorsal spine. There is bilateral facet arthrosis, likely severe at the L4-L5 level and possibly L5-S1 bilaterally. ADDITIONAL FINDINGS: Partially visualized sacroiliac joints are normal. Incidental note made of a left hip arthroplasty partially visualized in the [id number], otherwise unremarkable. XR/XR lumbar spine 2-3V IMPRESSION: 1. No acute abnormality. 2. Moderate multilevel spondylosis of the lumbosacral spine. Additional spondylosis of the dorsal spine incidentally noted. 3. Similar-appearing degenerative disc changes and spondylosis noted in the partially visualized dorsal spine.
== END 2024-01-31 09:32 | disposition home or self-care (01) ==
LOC: HO.HOSX 09:31
PROVIDERS: Visit Provider Orthopaedic Surgery
DX: M54.50 Low back pain, unspecified (principal); M25.552 Pain in left hip
CPT/HCPCS: 72100; 99212

== ENCOUNTER 2024-01-31 11:02 | Outpatient (AMB) | payer MEDICARE, SELFPAY ==
--- NOTE | 2024-01-31 11:29 | A.OFFVIS_ITS ---
Vital Signs 01/31/24 11:30 Height 5 ft 5 in Weight 278 lb BMI 46.3 Intake Visit Reasons: New prob- LT hip pain, Low back pain Intake Note: Yvonne is a 73 yo female who presents today for left hip pain that began years ago. Reports prior left hip replacement Jun, 2018. Patient states a revision was done October,. She disclosed she has been experiencing pain since then due to not fully rehabilitating. She is currently taking Tylenol arthritis to help with pain. Patient reports pain goes up to a 9/10 when ambulating, on pain scale. The patient also reports progressively worsening low back pain which radiates down her left leg. She also reports intermittent left leg weakness. Her back pain has gotten worse over the last year in spite of continued conservative treatments. She has done physical therapy exercises which aggravated her pain. Allergies chocolate Allergy (Mild, Verified 01/31/24 11:35) Unknown eggs Allergy (Mild, Uncoded 01/31/24 11:35) Diarrhea Medication List - Last Reconciled 02/01/24 by Abraham Hogue MD cholecalciferol (vitamin D3) 25 mcg PO DAILY escitalopram oxalate 40 mg (2 x 20 mg) PO DAILY 3 months fluticasone propion-salmeterol 115-21 mcg/actuation (Advair HFA) 1 puff inhalation BID 3 months fluticasone propionate 50 mcg/actuation (Flonase Allergy Relief) 2 sprays intranasal DAILY 3 months ketorolac 0.5% drps ophthalmic (eye) loratadine (Claritin) 10 mg PO DAILY omega-3 fatty acids 1,000 mg PO DAILY omeprazole 20 mg PO DAILY [facility] Medical History (Updated 01/29/24 @ 07:53 by Abraham Hogue MD) Left hip pain History of revision of total replacement of left hip joint Hypersomnia Snoring Cataracts, both eyes BK on CPAP Bilateral knee pain Allergic rhinitis Anxiety and depression Hyperlipidemia GERD (gastroesophageal reflux disease) History of peptic ulcer Mild intermittent asthma History of COVID-19 History of fracture of left ankle Surgical History Status post total hip replacement, left Family History Father Colon cancer Mother Hypertension Sister Breast CA Social History Housing: Condominium Patient Tobacco Use Status: Former Tobacco user e-Cigarette/Vaping Use: Never Used Second Hand Smoke Exposure: No Current occupational status: retired Cognitive needs: No Hearing needs: No Vision needs: No Physical Exam Vital Signs: BMI result Body Mass Index 46.3 Const Other: Well-nourished well-developed very friendly female awake alert and oriented x3 in no acute distress Back/Spine/Pelvis Other: Low back examination shows left-sided paraspinal muscle tenderness, pain with range of motion, positive straight leg raise test on the left at 70 degrees, 4/5 strength with testing of her left hip flexors and knee extensors when compared to 5/5 strength on her right side Extrem Other: Left hip examination shows that the surgical incision is well healed, no erythema, mild tenderness over her bursa, minimal discomfort with range of motion Results Reviewed Results Reviewed: X-rays of the patient's left hip show a total hip arthroplasty in good position with no signs of loosening, no acute bony abnormalities Assessment & Plan Assessment & Plan (1) Low back pain: Code(s): M54.50 - Low back pain, unspecified Category: Medical (2) Left hip pain: Code(s): M25.552 - Pain in left hip Category: Medical Plan Ms. Espinoza presents with progressively worsening low back pain which radiates down her left leg as well as associated left leg weakness possibly due to lumbar stenosis or a disc herniation. Thus, I will send the patient for an MRI of her lumbar spine for further evaluation. I will contact her by phone once the MRI results are available. She will call me prior to that time should her symptoms worsen in any way. Feel free to call me at any time should questions regarding her orthopedic management arise. I spent 21 minutes in reviewing the patient's records and imaging studies, seeing the patient and documenting in the medical record. Orders: Orders XR lumbar spine 2-3V 01/31/24 M54.50 - Low back pain, unspecified MR lumbar spine wo con Today M54.50 - Low back pain, unspecified Coding Level of Care Code Est Pt Level 3 (36212) Diagnoses Low back pain M54.50 Left hip pain M25.552
[2024-01-31 11:30] VITALS: BMI 46.3
== END 2024-01-31 12:01 | disposition home or self-care (01) ==
PROVIDERS: PCP Internal Medicine; Visit Provider Orthopaedic Surgery
DX: M25.552 Pain in left hip (principal); M54.50 Low back pain, unspecified
CPT/HCPCS: 99213

== ENCOUNTER → 2024-02-14 10:21 | Outpatient (REF) | payer MEDICARE, SELFPAY | LOC: HO.SL 10:21 | PROVIDERS: Visit Provider Psychiatry & Neurology Neurology | DX: Z13.89 Encounter for screening for other disorder (principal) ==

== ENCOUNTER 2024-03-06 19:38 | Outpatient (REF) | payer MEDICARE, SELFPAY ==
--- NOTE | ~2024-03-06 | MR_ITS ---
MR LUMBAR SPINE WITHOUT CONTRAST CLINICAL INFORMATION: Low back pain. COMPARISON: Lumbar spine radiographs January 31, 2024. TECHNIQUE: MRI of the lumbar spine was obtained using routine sequences without contrast. FINDINGS: There are 5 nonrib-bearing lumbar-type vertebral bodies. There is slight grade 1 anterolisthesis at L5-S1 and there is grade 1 retrolisthesis at L1-L2 and L2-L3. The vertebral body heights are maintained. There is moderate to severe disc volume loss at L1-L2 and L4-L5 and there is moderate disc volume loss at L2-L3 and L3-L4. Modic type I endplate signal changes at T12-L1 and L4-L5. There is bone marrow edema within the L4-L5 facet that is most likely inflammatory/stress-induced. There are no acute fractures. Intraosseous hemangioma with atypical imaging features in the left aspect of the T12 vertebral body. There are multilevel endplate osteophytes. Conus terminates at the L1-L2 level. Bilateral parapelvic cysts. There is paraspinal muscular atrophy bilaterally. L1-L2: Grade 1 retrolisthesis. Diffuse disc osteophyte complex and moderate bilateral facet arthropathy and ligamentum flavum thickening. Findings in concert result in left greater than right subarticular zone stenosis with mass effect on the traversing left L2 nerve root as well as mild to moderate central canal stenosis and [id number] bilateral foraminal stenosis. L2-L3: Grade 1 retrolisthesis. Diffuse disc osteophyte complex and severe bilateral facet arthropathy and ligamentum flavum thickening. Findings in concert result in moderate to severe central canal stenosis, left greater than right subarticular zone stenosis with mass effect on the traversing left L3 nerve root, and mild bilateral foraminal encroachment. A far left lateral disc osteophyte protrusion contacts the extraforaminal left L2 nerve root. L3-L4: Diffuse disc osteophyte complex and severe bilateral facet arthropathy and ligamentum flavum thickening. Findings in concert result in moderate to severe central canal stenosis, bilateral subarticular zone stenosis with compression of the traversing L4 nerve roots bilaterally, and mild bilateral foraminal encroachment. L4-L5: Diffuse disc osteophyte complex and severe bilateral facet arthropathy and ligamentum flavum thickening. Findings in concert result in severe central canal stenosis and a right lateral disc osteophyte protrusion and advanced facet arthropathy results in severe right foraminal stenosis with compression of the exiting right L4 nerve root. L5-S1: Slight grade 1 anterolisthesis. Diffuse annular disc bulge with a superimposed right paracentral disc protrusion, the latter compressing the traversing right S1 nerve root within the right subarticular zone. Disc osteophyte and facet arthropathy result in moderate to severe right foraminal stenosis with compression of the exiting right L5 nerve root. MR/MR lumbar spine wo con IMPRESSION: * At L1-L2, grade 1 retrolisthesis and multifactorial degenerative changes result in left greater than right subarticular zone stenosis with mass effect on the traversing left L2 nerve root as well as mild to moderate central canal stenosis and [id number] bilateral foraminal stenosis. * At L2-L3, grade 1 retrolisthesis and multifactorial degenerative changes result in moderate to severe central canal stenosis, left greater than right subarticular zone stenosis with mass effect on the traversing left L3 nerve root, and mild bilateral foraminal encroachment. A far left lateral disc osteophyte protrusion contacts the extraforaminal left L2 nerve root. * At L3-L4, multifactorial degenerative changes result in moderate to severe central canal stenosis, bilateral subarticular zone stenosis with compression of the traversing L4 nerve roots bilaterally, and mild bilateral foraminal encroachment. * At L4-L5, advanced multifactorial degenerative changes result in severe central canal stenosis and a right lateral disc osteophyte protrusion and advanced facet arthropathy results in severe right foraminal stenosis with compression of the exiting right L4 nerve root. There is bone marrow edema within the L4-L5 facet that is most likely inflammatory/stress-induced. Modic type I end plate signal changes at this level. * At L5-S1, a right paracentral disc protrusion compresses the traversing right S1 nerve root within the right subarticular zone and multifactorial. * There is paraspinal muscular atrophy throughout the lumbar spine. Electronically signed by: Tho Bryant MD 03/25/2024 01:02 PM EDT
== END 2024-03-06 19:39 | disposition home or self-care (01) ==
LOC: HO.MRI 19:38
PROVIDERS: PCP Internal Medicine; Visit Provider Orthopaedic Surgery
DX: M54.50 Low back pain, unspecified (principal)
CPT/HCPCS: 72148

== ENCOUNTER 2024-04-17 09:20 | Outpatient (AMB) | payer MEDICARE, SELFPAY ==
[2024-04-17 09:27] VITALS: BMI 46.3
--- NOTE | 2024-04-17 09:27 | A.OFFVIS_ITS ---
Vital Signs 04/17/24 09:27 Height 5 ft 5 in Weight 278 lb BMI 46.3 Intake Visit Reasons: Bilateral knee pain Intake Note: Yvonne is a 74 year old female who presents with complaints of progressively worsening bilateral knee pains. The patient describes her pains as sharp and severe in nature. Her pains have gotten worse over the last few years in spite of continued non operative treatments. She has failed the last 3 months of conservative treatment which has consisted of topical creams, a home exercise program, Tylenol and anti-inflammatory medicines. She has had multiple cortisone injections in the past which gave her minimal relief. She wishes to hold off on total knee replacement surgery for as long as possible. She states that her bilateral knee pains are now interfering with her activities of daily living and her ability to sleep well through the night. Allergies chocolate Allergy (Mild, Verified 04/17/24 09:31) Unknown eggs Allergy (Mild, Uncoded 04/17/24 09:31) Diarrhea Medication List - Last Reconciled 04/17/24 by Abraham Hogue MD cholecalciferol (vitamin D3) 25 mcg PO DAILY escitalopram oxalate 40 mg (2 x 20 mg) PO DAILY 3 months fluticasone propion-salmeterol 115-21 mcg/actuation (Advair HFA) 1 puff inhalation BID 3 months fluticasone propionate 50 mcg/actuation (Flonase Allergy Relief) 2 sprays intranasal DAILY 3 months ketorolac 0.5% drps ophthalmic (eye) loratadine (Claritin) 10 mg PO DAILY omega-3 fatty acids 1,000 mg PO DAILY omeprazole 20 mg PO DAILY [facility] Medical History (Updated 04/18/24 @ 07:27 by Abraham Hogue MD) Left hip pain History of revision of total replacement of left hip joint Hypersomnia Snoring Cataracts, both eyes BK on CPAP Bilateral knee pain Allergic rhinitis Anxiety and depression Hyperlipidemia GERD (gastroesophageal reflux disease) History of peptic ulcer Mild intermittent asthma History of COVID-19 History of fracture of left ankle Surgical History Status post total hip replacement, left Family History Father Colon cancer Mother Hypertension Sister Breast CA Social History Housing: Condominium Patient Tobacco Use Status: Former Tobacco user e-Cigarette/Vaping Use: Never Used Second Hand Smoke Exposure: No Current occupational status: retired Cognitive needs: No Hearing needs: No Vision needs: No Physical Exam Vital Signs: BMI result Body Mass Index 46.3 Const Other: Well-nourished well-developed very friendly female awake alert and oriented x3 in no acute distress Extrem Other: Bilateral lower extremity examination shows good capillary refill, no skin lesions noted, normal sensation light touch Bilateral knee examination shows minimal effusions, palpable crepitus with range of motion, pain with range of motion, range of motion from -3 degrees to 115 degrees, no instability Results Reviewed Results Reviewed: X-rays of the patient's bilateral knee show joint space narrowing, subchondral sclerosis, no acute bony abnormalities Assessment & Plan Assessment & Plan (1) Bilateral knee pain: Code(s): M25.561 - Pain in right knee; M25.562 - Pain in left knee Category: Medical Qualifiers: Chronicity: chronic Qualified Code(s): M25.561 - Pain in right knee; M25.562 - Pain in left knee; G89.29 - Other chronic pain (2) Osteoarthritis of left knee: Code(s): M17.12 - Unilateral primary osteoarthritis, left knee Category: Medical (3) Osteoarthritis of right knee: Code(s): M17.11 - Unilateral primary osteoarthritis, right knee Category: Medical Plan Ms. Espinoza presents with bilateral knee pains due to osteoarthritis. I had a lengthy discussion with the patient regarding the treatment options. She wishes to hold off on total knee replacement surgery for as long as possible. I agree with this plan. She has not gotten good relief from cortisone injections in the past. Thus, I will see whether or not the patient's insurance company will cover a viscosupplementation injection, such as Durolane, for both of her knees. I will see her back once the injections are available. Feel free to call me at any time should questions regarding her orthopedic management arise. I spent 22 minutes in reviewing the patient's records and imaging studies, seeing the patient and documenting in the medical record. Orders: Referrals Neuro Spine Referral M48.061 - Spinal stenosis, lumbar region without neurogenic claudication, M54.50 - Low back pain, unspecified Coding Level of Care Code Est Pt Level 3 (21505) Complex EM visit Add On G2211 Diagnoses Chronic pain of both knees M25.561; M25.562; G89.29 Chronicity: chronic Osteoarthritis of left knee M17.12 Osteoarthritis of right knee M17.11
== END 2024-04-17 09:53 | disposition home or self-care (01) ==
PROVIDERS: PCP Internal Medicine; Visit Provider Orthopaedic Surgery
DX: M17.0 Bilateral primary osteoarthritis of knee (principal)
CPT/HCPCS: 99213; G2211

== ENCOUNTER → 2024-04-17 09:20 | Outpatient (BNVA) | payer MEDICARE, SELFPAY | PROVIDERS: PCP Internal Medicine; Visit Provider Orthopaedic Surgery | DX: M17.0 Bilateral primary osteoarthritis of knee (principal); M25.562 Pain in left knee; M25.561 Pain in right knee; G89.29 Other chronic pain | CPT/HCPCS: 99212 ==

== ENCOUNTER → 2024-04-29 12:58 | Outpatient (REF) | payer MEDICARE, SELFPAY | LOC: HO.SL 12:58 | PROVIDERS: PCP Internal Medicine; Visit Provider Psychiatry & Neurology Neurology | DX: G47.33 Obstructive sleep apnea (adult) (pediatric) (principal) | CPT/HCPCS: 95806 ==

== ENCOUNTER → 2024-04-29 13:10 | Outpatient (BNV) | payer MEDICARE, SELFPAY | PROVIDERS: PCP Internal Medicine; Visit Provider Psychiatry & Neurology Neurology | DX: G47.33 Obstructive sleep apnea (adult) (pediatric) (principal) | CPT/HCPCS: 95806 ==

== ENCOUNTER 2024-04-30 13:46 | Outpatient (AMB) | payer MEDICARE, SELFPAY ==
--- NOTE | 2024-04-30 14:07 | HO.SPINEOV ---
Intake Visit Reasons: LBP Intake Note: Ms. 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 Hogue, Thank you for referring Yvonne to our office today. She is a pleasant 74-year-old female comes in today with a chief complaint of low back pain and difficulties with ambulation. In addition to this she reports some shooting pains into her posterior buttocks and into her left hip. She has a pertinent medical history of a left total hip arthroplasty in 2018. She states that her low back pain is exacerbated by walking. She gets relief from sitting down. She is able to walk about 20 yards until she has to sit down due to a feeling of fatigue and cramping in her bilateral legs, both in her hips and her calves. She states that she is still able to complete the bulk of her ADLs, however when she goes grocery shopping she has to bend over the top of the grocery cart and stabilize herself on it to get relief of her low back pain. She has been to physical therapy multiple times in the past without significant relief of symptoms. 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 She is taking Tylenol and diclofenac gel daily. She has tried ibuprofen in the past and found it to be only intermittently helpful. PMH: Asthma, seasonal allergies, GERD, depression. Social hx: Patient does not smoke, reports no substance use. Medications: Tylenol, diclofenac gel, escitalopram, vitamin D3, fluticasone, Claritin, omeprazole. Patient reports no anticoagulants, blood thinners, diabetes medications or diabetes history. No weight loss medications. Allergies: Chocolate, eggs. Physical exam: The rain has 5/5 strength in her upper and lower extremities, however she does elicit quite a bit of pain to bilateral hip flexion/knee extension. She has no significant sensational deficits. Her reflexes are 2+ intact. She ambulates with the assistance of a cane and has to brace herself on the chair in order to rise from a seated position. (-) bilateral straight leg raise, (-) Lema's, (-) clonus. Imaging review: MRI of the lumbar spine completed here at [facility] shows diffuse spondylosis of the lumbar spine. There are varying degrees of foraminal and central canal stenosis noted. This is worse at L4-5 where there is severe central canal and bilateral foraminal stenosis. This severe stenosis at L4-5 is worse on the right-hand side. Impression: Yvonne is a pleasant 74-year-old female who comes in today with a chief complaint of low back pain and difficulties with ambulation. Her history, physical exam, and imaging are classic for spinal stenosis with neurogenic claudication. Due to her disclosure that her back pain subside with rest, I do not believe she would be a good candidate for a lumbar fusion at this time. Given that, she would be a great candidate for lumbar decompression in order to address the severe compression seen on imaging. Dr. Quinonez was in the office today and reviewed this patient's history and imaging. He also met the patient discuss a proposed surgical intervention. The patient agreed to have a right-sided L4-5 lumbar decompression completed by our service. I reviewed what this procedure would entail with the patient using our 3D spine models. I answered all of her questions to the best of my ability. We discussed the risks/benefits of proceeding with surgery versus continued conservative management and the patient would like to proceed with surgery. Sarah was given risk and benefits of surgery including but not limited to infection, hematoma, nerve injury, durotomy, weakness, bowel/bladder injury, persistent pain, as well as the option to continue with conservative treatment and patient wishes to proceed with surgery. They are aware they should stop NSAIDs 7 days prior to surgery. All questions were answered to the best of our ability. If there is anything about this patients medical history that we have overlooked or concerns you have about us proceeding with surgery we would appreciate any input you can offer. Thank you for allowing us to care for your patient. The total time spent with this visit with this patient was 65 minutes reviewing history, physical exam, MRI imaging review, and implementation of treatment plan or further diagnostic testing Kwasi Quinonez MD,PhD [facility] Orders: Orders XR lumbar spine 4V min Today M48.062 - Spinal stenosis, lumbar region with neurogenic claudication Coding Level of Care Code Est Pt Level 5 (65463) Diagnoses Spinal stenosis of lumbar region with neurogenic claudication M48.062
== END 2024-04-30 14:39 | disposition home or self-care (01) ==
PROVIDERS: PCP Internal Medicine; Referring Provider Internal Medicine; Visit Provider Physician Assistant
DX: M48.062 Spinal stenosis, lumbar region with neurogenic claudication (principal)
CPT/HCPCS: 99215

== ENCOUNTER 2024-04-30 13:46 | Outpatient (REF) | payer MEDICARE, SELFPAY ==
--- NOTE | ~2024-04-30 | XR_ITS ---
EXAMINATION: XR LUMBAR SPINE 4 VIEWS CLINICAL INFORMATION: Spinal stenosis, lumbar region with neurogenic claudication M48.062. COMPARISON: XR Lumbar spine 01/31/2024 MRI lumbar spine 03/06/2024 TECHNIQUE: 4 views of lumbar spine were obtained. FINDINGS: There are 5 nonrib-bearing lumbar vertebral bodies. Vertebral body heights are maintained. There is slight retrolisthesis of L1 on L2 and L2 on L3. The appearance is unchanged with flexion and extension. Moderate multilevel intervertebral disc space narrowing and marginal osteophytes. There is grade 1 anterolisthesis of L5 on S1. Facet osteoarthritis is most severe at L4-L5 and L5-S1. XR/XR lumbar spine 4V min IMPRESSION: Moderate lumbar spondylosis. Electronically signed by: oDnovan Alvarado MD 06/20/2024 02:19 PM RACHEL TAMAYO
== END 2024-04-30 13:47 | disposition home or self-care (01) ==
LOC: HO.HOSX 13:46
PROVIDERS: PCP Internal Medicine; Visit Provider Physician Assistant
DX: M48.062 Spinal stenosis, lumbar region with neurogenic claudication (principal)
CPT/HCPCS: 72110; 99212

== ENCOUNTER 2024-05-07 10:32 | Outpatient (AMB) | payer MEDICARE, SELFPAY ==
[2024-05-07 10:48] VITALS: BMI 45.6
--- NOTE | 2024-05-07 10:48 | MHC.OFFVIS ---
Vital Signs 05/07/24 10:48 Height 5 ft 5 in Weight 274 lb BMI 45.6 Intake Visit Reasons: INJ- Bilateral knee Durolane inj Intake Note: Yvonne is a 74 year old female who presents with complaints of progressively worsening bilateral knee pains. The patient describes her pains as sharp and severe in nature. Her pains have gotten worse over the last few years in spite of continued non operative treatments. She has failed the last 3 months of conservative treatment which has consisted of topical creams, a home exercise program, Tylenol and anti-inflammatory medicines. She has had multiple cortisone injections in the past which gave her minimal relief. She wishes to hold off on total knee replacement surgery for as long as possible. She states that her bilateral knee pains are now interfering with her activities of daily living and her ability to sleep well through the night. Allergies chocolate Allergy (Mild, Verified 05/07/24 10:52) Unknown eggs Allergy (Mild, Uncoded 05/07/24 10:52) Diarrhea Medication List - Last Reconciled 05/07/24 by Abraham Hogue MD cholecalciferol (vitamin D3) 25 mcg PO DAILY escitalopram oxalate 40 mg (2 x 20 mg) PO DAILY 3 months fluticasone propion-salmeterol 115-21 mcg/actuation (Advair HFA) 1 puff inhalation BID 3 months fluticasone propionate 50 mcg/actuation (Flonase Allergy Relief) 2 sprays intranasal DAILY 3 months ketorolac 0.5% drps ophthalmic (eye) loratadine (Claritin) 10 mg PO DAILY omega-3 fatty acids 1,000 mg PO DAILY omeprazole 20 mg PO DAILY [facility] Medical History Left hip pain History of revision of total replacement of left hip joint Hypersomnia Snoring Cataracts, both eyes BK on CPAP Bilateral knee pain Allergic rhinitis Anxiety and depression Hyperlipidemia GERD (gastroesophageal reflux disease) History of peptic ulcer Mild intermittent asthma History of COVID-19 History of fracture of left ankle Surgical History Status post total hip replacement, left Family History Father Colon cancer Mother Hypertension Sister Breast CA Social History Housing: Condominium Patient Tobacco Use Status: Former Tobacco user e-Cigarette/Vaping Use: Never Used Second Hand Smoke Exposure: No Current occupational status: retired Cognitive needs: No Hearing needs: No Vision needs: No Physical Exam Vital Signs: BMI result Body Mass Index 45.6 Const Other: Well-nourished well-developed very friendly female awake alert and oriented x3 in no acute distress Extrem Other: Bilateral knee examination shows minimal effusions, palpable crepitus with range of motion, pain with range of motion Office Procedures Joint Injection/Aspiration Joint Injection/Aspiration Primary Site: right knee Prep: site was prepped using aseptic technique Injected: 60 mg of (Durolane viscosupplementation) and 1% plain lidocaine Procedure: The patient tolerated the procedure well Coding 96647 - Large joint Procedure code (CPT) selection complete Joint Injection/Aspiration Joint Injection/Aspiration Primary Site: left knee Prep: site was prepped using aseptic technique Injected: 60 mg of (Durolane viscosupplementation) and 1% plain lidocaine Procedure: The patient tolerated the procedure well Coding 65044 - Large joint Procedure code (CPT) selection complete Results Reviewed Results Reviewed: X-rays of the patient's bilateral knees taken previously show joint space narrowing, subchondral sclerosis, no acute bony abnormalities Assessment & Plan Assessment & Plan (1) Osteoarthritis of left knee: Code(s): M17.12 - Unilateral primary osteoarthritis, left knee Category: Medical (2) Osteoarthritis of right knee: Code(s): M17.11 - Unilateral primary osteoarthritis, right knee Category: Medical Plan Ms. Espinoza presents with bilateral knee pains due to degenerative joint disease. I had a lengthy discussion with the patient regarding the treatment options. The risks and benefits of bilateral knee Durolane viscosupplementation injections were discussed at length with the patient. The patient wished to proceed. She tolerated the injections well. She will continue with her home exercise program. She will contact me prior to her follow-up appointment in 3 months should any questions or concerns arise. Feel free to call me at any time should questions regarding her orthopedic management arise. Well-nourished well-developed very friendly female awake alert and oriented x3 in no acute distress Orders: Orders AMB Joint Injection/Aspiration 10/29/24 M17.11 - Unilateral primary osteoarthritis, right knee AMB Joint Injection/Aspiration 05/07/24 M17.12 - Unilateral primary osteoarthritis, left knee Coding Level of Care Code Est Pt Level 3 (98643) Complex EM visit Add On G2211 Diagnoses Osteoarthritis of left knee M17.12 Osteoarthritis of right knee M17.11 CPT Codes Coding - 80043 Large joint: 63364 - Large joint ([id number]) Coding - 84975 Large joint: 57025 - Large joint ([id number])
== END 2024-05-07 11:17 | disposition home or self-care (01) ==
LOC: HO.HOS 10:33
PROVIDERS: PCP Internal Medicine; Visit Provider Orthopaedic Surgery
DX: M17.0 Bilateral primary osteoarthritis of knee (principal)
CPT/HCPCS: 20610; 99213

== ENCOUNTER → 2024-05-07 10:32 | Outpatient (BNVA) | payer MEDICARE, SELFPAY | PROVIDERS: PCP Internal Medicine; Visit Provider Orthopaedic Surgery | DX: M17.0 Bilateral primary osteoarthritis of knee (principal) | CPT/HCPCS: 20610; 99212; J2003; J7318 ==

== ENCOUNTER → 2024-05-28 11:19 | Outpatient (BNV) | payer MEDICARE, SELFPAY | PROVIDERS: PCP Internal Medicine; Visit Provider Internal Medicine Cardiovascular Disease | DX: R94.31 Abnormal electrocardiogram [ECG] [EKG] (principal) | CPT/HCPCS: 93010 ==

== ENCOUNTER 2024-06-13 07:57 | Day surgery (SDC) | payer MEDICARE, SELFPAY ==
--- NOTE | 2024-05-28 | ECG_ITS ---
Test Reason : PRE OP Blood Pressure : / mmHG Vent. Rate : 068 BPM Atrial Rate : 068 BPM P-R Int : 190 ms QRS Dur : 090 ms QT Int : 414 ms P-R-T Axes : 067 -30 -29 degrees QTc Int : 440 ms Normal sinus rhythm Left axis deviation Nonspecific T wave abnormality Abnormal ECG No previous ECGs available Referred By: Lilly Amezcua Electronically Signed By:KIMBERLY GARCIA MD
[2024-05-28 10:30] VITALS: BP 138/72; PULSE 62; RESP 20; O2SAT 97; BMI 46.6
--- NOTE | 2024-05-28 10:47 | P.CONAN_ITS ---
Documented by User: Lilly Amezcua NP 05/29/24 14:10 HPI - Anesthesia Eval Consult details Narrative: 74yo F for Right L4-5 Lumbar Decompression No recent illness No CP/SOB with grocery shopping BK: Uses QHS Asthma: Stable on sched, rare rescue inhaler GERD: ppi daily controls PMFSH Active Problems Active Problems: All Active Problems Spinal stenosis of lumbar region with neurogenic claudication (Acute) Osteoarthritis of right knee (Acute) Osteoarthritis of left knee (Acute) Lumbar stenosis (Acute) Low back pain (Acute) Left hip pain (Acute) Snoring (Acute) Right knee pain (Acute) Left knee pain (Acute) Mild intermittent asthma (Acute) Right ankle sprain (Acute) Hypersomnia (Acute) BK on CPAP (Acute) Bilateral knee pain (Acute) Allergic rhinitis (Acute) Anxiety and depression (Acute) Hyperlipidemia (Acute) GERD (gastroesophageal reflux disease) (Acute) Past Medical History Medical History Peptic ulcer Balance problem Concussion Asthma Low back pain Osteoarthritis Hypersomnia Cataracts, both eyes BK on CPAP Bilateral knee pain Allergic rhinitis Anxiety and depression Hyperlipidemia GERD (gastroesophageal reflux disease) History of fracture of left ankle Family History Family History Father Colon cancer Mother Hypertension Sister Breast CA Family history of problems with anesthesia: No Surgical History Surgical History Hx of bilateral cataract extraction History of esophagogastroduodenoscopy (EGD) H/O colonoscopy Status post total hip replacement, left History of Problems with Anesthesia: No Social History Social History Housing: Condominium Are you a primary healthcare sales representative to a significant other at home: No Do you presently have visiting nurse or other home services: No Comment: advised to remove prior to surgery Patient Tobacco Use Status: Former Tobacco user Tobacco use type: Cigarette Years Smoked: 2 e-Cigarette/Vaping Use: Never Used Second Hand Smoke Exposure: No Use of substances other than those prescribed or required for medical reasons: No Have you been hit, kicked, punched, or otherwise hurt by someone within the past year? If so, by whom?: No Spiritual Healthcare Practices: none Confucianism Healthcare Practices: [place] Cultural Healthcare Practices: none Are you DNR?: No Advance Directives Information Provided: Yes (as above noted) Advance Directives on File: No Recently lost weight without trying: No Eating poorly because of decreased appetite: No Nutrition Risks: No Nutritional Risk FDLMP: n/a Poor oral hygiene: No Current occupational status: retired Cognitive needs: No Hearing needs: No Vision needs: No Meds Allergies Allergy/AdvReac Type Severity Reaction Status Date / Time chocolate Allergy Mild Gastrointestinal Verified 06/13/24 08:24 Upset egg Allergy Mild Diarrhea Verified 06/13/24 08:24 Home Medications ?Medication ?Instructions ?Recorded ?Confirmed ?Last Taken ?Type cholecalciferol (vitamin D3) 25 25 mcg PO DAILY 06/16/23 06/13/24 Unknown History mcg (1,000 unit) tablet omega-3 fatty acids 1,000 mg 1,000 mg PO DAILY 10/02/23 06/13/24 06/10/24 History capsule acetaminophen 650 mg 650 mg PO Q12H 05/28/24 06/13/24 Unknown History tablet,extended release ascorbic acid (vitamin C) 1,000 mg 1,000 mg PO BID 05/28/24 06/13/24 Unknown History tablet (Vitamin C) calcium 600 mg (as 1 tab PO DAILY 05/28/24 06/13/24 Unknown History carbonate)-vitamin D3 5 mcg (200 unit) tablet cranberry concentrate-ascorbic 1 cap PO DAILY 05/28/24 06/13/24 Unknown History acid 4,200 mg-20 mg capsule cyanocobalamin (vitamin B-12) 1,000 mcg PO DAILY 05/28/24 06/13/24 Unknown History 1,000 mcg tablet (Vitamin B-12) escitalopram oxalate 20 mg tablet 40 mg PO QAM 05/28/24 06/13/24 Unknown History glucosamine-chondroitin 500 mg-400 1 cap PO DAILY 05/28/24 06/13/24 Unknown History mg capsule loratadine 10 mg tablet (Claritin) 10 mg PO QAM 05/28/24 06/13/24 Unknown History magnesium oxide 300 mg PO DAILY 05/28/24 06/13/24 Unknown History multivitamin 1 tab PO DAILY 05/28/24 06/13/24 Unknown History omeprazole 20 mg capsule,delayed 20 mg PO QAM 05/28/24 06/13/24 06/13/24 06:00 History release vitamin E (dl, acetate) 450 mg 450 mg PO BID 05/28/24 06/13/24 Unknown History (1,000 unit) capsule Exam Height,Weight and Vital Signs: Height 5 ft 5 in Weight 127.006 kg Last Vital Signs Pulse 62 05/28/24 10:30 Resp 20 05/28/24 10:30 BP 138/72 05/28/24 10:30 Pulse Ox 97 05/28/24 10:30 O2 Del Method Room Air 05/28/24 10:30 Pertinent Lab Results Pertinent Lab Results: Lab Results 05/28/24 Range/Units 11:31 WBC 6.6 (4.8-10.8) X10*3/uL RBC 4.20 (4.20-5.50) X10*6/uL Hgb 12.7 (12.0-16.0) g/dl Hct 38.9 (37.0-47.0) % MCV 92.6 (80.0-98.0) fL MCH 30.2 (27.0-33.0) pg MCHC 32.6 (31.0-35.0) g/dl RDW 13.9 (11.0-16.0) % Plt Count 230 (160-400) X10*3/uL MPV 10.5 (9.4-12.3) fL Absolute Nucleated RBC 0.000 (0.0-0.012) X10*3/uL Nucleated RBC % (auto) 0.0 (0.0-0.2) /100WBC Sodium 142 (135-145) mmol/L Potassium 4.8 (3.3-5.1) mmol/L Chloride 105 (96-108) mmol/L Carbon Dioxide 29 (22-29) mmol/L Anion Gap 13 (12-20) BUN 12 (9-16) mg/dL Creatinine 0.82 (0.5-1.4) mg/dL Estim Creat Clear Calc 83.2 Estimated GFR > 60 Random Glucose 97 (60-115) mg/dL Calcium 10.0 (8.4-10.2) mg/dL Narrative Narrative: EKG 05/2024 Vent. Rate : 068 BPM Atrial Rate : 068 BPM P-R Int : 190 ms QRS Dur : 090 ms QT Int : 414 ms P-R-T Axes : 067 -30 -29 degrees QTc Int : 440 ms Normal sinus rhythm Left axis deviation Nonspecific T wave abnormality Abnormal ECG No previous ECGs available Airway Mallampati Class: II TM Dist: >3cm Neck ROM: Limited Loose/Missing/Broken Teeth: No (Molars crowned) Heart: RRR Lungs: CTAB Assessment and Plan Assessment Anesthesia Assessment: Anesthesia Plan Discussed and PAT Visit Final Anesthetic Review Family History of Problems with Anesthesia: No History of Problems with Anesthesia: No Documented by User: Jemima Choe MD 06/13/24 09:49 PMFSH Active Problems Active Problems: All Active Problems Spinal stenosis of lumbar region with neurogenic claudication (Acute) Osteoarthritis of right knee (Acute) Osteoarthritis of left knee (Acute) Lumbar stenosis (Acute) Low back pain (Acute) Left hip pain (Acute) Snoring (Acute) Right knee pain (Acute) Left knee pain (Acute) Mild intermittent asthma (Acute)- controlled Right ankle sprain (Acute) Hypersomnia (Acute) BK on CPAP (Acute) Bilateral knee pain (Acute) Allergic rhinitis (Acute) Anxiety and depression (Acute) Hyperlipidemia (Acute) GERD (gastroesophageal reflux disease) (Acute) Past Medical History Medical History Peptic ulcer Balance problem Concussion Asthma Low back pain Osteoarthritis Hypersomnia Cataracts, both eyes BK on CPAP Bilateral knee pain Allergic rhinitis Anxiety and depression Hyperlipidemia GERD (gastroesophageal reflux disease) History of fracture of left ankle Family History Family History Father Colon cancer Mother Hypertension Sister Breast CA Family history of problems with anesthesia: No Surgical History Surgical History Hx of bilateral cataract extraction History of esophagogastroduodenoscopy (EGD) H/O colonoscopy Status post total hip replacement, left History of Problems with Anesthesia: No Social History Social History Housing: Condominium Are you a primary healthcare sales representative to a significant other at home: No Do you presently have visiting nurse or other home services: No Comment: advised to remove prior to surgery Patient Tobacco Use Status: Former Tobacco user Tobacco use type: Cigarette Years Smoked: 2 e-Cigarette/Vaping Use: Never Used Second Hand Smoke Exposure: No Use of substances other than those prescribed or required for medical reasons: No Have you been hit, kicked, punched, or otherwise hurt by someone within the past year? If so, by whom?: No Spiritual Healthcare Practices: none Confucianism Healthcare Practices: [place] Cultural Healthcare Practices: none Are you DNR?: No Advance Directives Information Provided: Yes (as above noted) Advance Directives on File: No Recently lost weight without trying: No Eating poorly because of decreased appetite: No Nutrition Risks: No Nutritional Risk FDLMP: n/a Poor oral hygiene: No Current occupational status: retired Cognitive needs: No Hearing needs: No Vision needs: No Meds Allergies Allergy/AdvReac Type Severity Reaction Status Date / Time chocolate Allergy Mild Gastrointestinal Verified 06/13/24 08:24 Upset egg Allergy Mild Diarrhea Verified 06/13/24 08:24 Home Medications ?Medication ?Instructions ?Recorded ?Confirmed ?Last Taken ?Type cholecalciferol (vitamin D3) 25 25 mcg PO DAILY 06/16/23 06/13/24 Unknown History mcg (1,000 unit) tablet omega-3 fatty acids 1,000 mg 1,000 mg PO DAILY 10/02/23 06/13/24 06/10/24 History capsule acetaminophen 650 mg 650 mg PO Q12H 05/28/24 06/13/24 Unknown History tablet,extended release ascorbic acid (vitamin C) 1,000 mg 1,000 mg PO BID 05/28/24 06/13/24 Unknown History tablet (Vitamin C) calcium 600 mg (as 1 tab PO DAILY 05/28/24 06/13/24 Unknown History carbonate)-vitamin D3 5 mcg (200 unit) tablet cranberry concentrate-ascorbic 1 cap PO DAILY 05/28/24 06/13/24 Unknown History acid 4,200 mg-20 mg capsule cyanocobalamin (vitamin B-12) 1,000 mcg PO DAILY 05/28/24 06/13/24 Unknown History 1,000 mcg tablet (Vitamin B-12) escitalopram oxalate 20 mg tablet 40 mg PO QAM 05/28/24 06/13/24 Unknown History glucosamine-chondroitin 500 mg-400 1 cap PO DAILY 05/28/24 06/13/24 Unknown History mg capsule loratadine 10 mg tablet (Claritin) 10 mg PO QAM 05/28/24 06/13/24 Unknown Histor y magnesium oxide 300 mg PO DAILY 05/28/24 06/13/24 Unknown History multivitamin 1 tab PO DAILY 05/28/24 06/13/24 Unknown History omeprazole 20 mg capsule,delayed 20 mg PO QAM 05/28/24 06/13/24 06/13/24 06:00 History release vitamin E (dl, acetate) 450 mg 450 mg PO BID 05/28/24 06/13/24 Unknown History (1,000 unit) capsule Exam Height,Weight and Vital Signs: Height 5 ft 5 in Weight 127.006 kg Last Vital Signs Pulse 62 05/28/24 10:30 Resp 20 05/28/24 10:30 BP 138/72 05/28/24 10:30 Pulse Ox 97 05/28/24 10:30 O2 Del Method Room Air 05/28/24 10:30 Vital Signs Temp Pulse Resp BP Pulse Ox O2 Del Method 06/13/24 08:33 99.0 F 70 16 122/69 93 Room Air Repest O2 sats 95-96% (RA) Airway Mallampati Class: III TM Dist: >3cm Neck ROM: Limited (Pain with extension) Loose/Missing/Broken Teeth: No (Crowns in the back. Denies broken or loose teeth. Missing wisdom teeth) Heart: RRR Lungs: CTAB Assessment and Plan Assessment Anesthesia Assessment: Anesthesia Plan Discussed, PAT Visit and Chart Reviewed Final Anesthetic Review Family History of Problems with Anesthesia: No History of Problems with Anesthesia: No NPO: Yes ASA Class: III Final Preanesthetic Review: No Changes in Pt Med Stat, Meds/Allgs Chart Reviewed, Consent Obtained/Reviewed and Anes Risks/Benef Reviewed Patient Risk: Intermediate Procedure Risk: Low Assessment/Block/Sedation in SS: Assess/Block/Sedation-SS Anesthetic Plan Anesthetic Plan: GA Disposition: Standard PACU
[2024-05-28 12:15] LABS: Hematocrit 38.9 % (37.0-47.0); Hemoglobin 12.7 g/dl (12.0-16.0); Mean Corpuscular HGB Conc 32.6 g/dl (31.0-35.0); Mean Corpuscular Hemoglobin 30.2 pg (27.0-33.0); Mean Corpuscular Volume 92.6 fL (80.0-98.0); Mean Platelet Volume 10.5 fL (9.4-12.3); Platelet Count 230 X10*3/uL (160-400); Red Cell Distribution Width 13.9 % (11.0-16.0); White Blood Count 6.6 X10*3/uL (4.8-10.8)
[2024-05-28 12:39] LABS: Anion Gap 13 (12-20); Blood Urea Nitrogen 12 mg/dL (9-16); Carbon Dioxide 29 mmol/L (22-29); Chloride 105 mmol/L (96-108); Creatinine Clr Calc Pharmacy 83.2; Estimated Glomerular Filt Rate > 60; Glucose Random 97 mg/dL (60-115); Potassium 4.8 mmol/L (3.3-5.1); Sodium 142 mmol/L (135-145)
[2024-06-13] VITALS (10 sets, daily range): BP systolic 122–158; BP diastolic 69–87; PULSE 70–77; RESP 11–22; TEMP 36.1–37.2; O2SAT 93–100; BMI 46.3
[2024-06-13] MEDS: Lactated Ringers 1,000 ML 100 ML IVCONT (09:18)
[2024-06-13] MEDS: Gabapentin 300 MG CAPSULE PO (09:18)
[2024-06-13] MEDS: methocarbamoL 750 MG TABLET PO (09:18)
--- NOTE | 2024-06-13 09:24 | MHC.SHP ---
Pre-Procedural Eval Section A - 24 Hr Update-Section A only Date of Service: 06/13/24 The patient is an INPATIENT: No Section B - Complete if H&P > 30 days Chief Complaint: Spinal stenosis, lumbar region with neurogenic Details of Present Illness: Neurogenic claudication Allergies: Allergies Allergy/AdvReac Type Severity Reaction Status Date / Time chocolate Allergy Mild Gastrointestinal Verified 06/13/24 08:24 Upset egg Allergy Mild Diarrhea Verified 06/13/24 08:24 Review of Systems Sugical H&P ROS: Negative: Constitution, Cardiovascular, Respiratory, Neurological, Psychiatric, Hem-Onc, Allergic/Immunologic, Gastrointestinal, Genitourinary, Musculoskeletal, Integumentary, Endocrine and Eyes/Ears/Nose/Throat Exam Surgical H&P Exam: Normal: HEENT, Normal: Heart, Normal: Lungs, Normal: Extremities, Normal: Abdomen, Normal: Skin and Normal: Neurological (Wake, alert) Plan Diagnosis/Plan: Unchanged I have reviewed the history and physical and performed a pertinent physical examination on my patient. No changes have occurred unless specified. Right L4-5 decompression Time Spent With Patient Time: Total time managing care of this patient today __5__ minutes.
--- NOTE | 2024-06-13 10:22 | P.DS_ITS ---
DS: Providers Provider Date of Service: 06/13/24 Date of discharge: 06/13/24 Primary care physician: Anny Gallo MD Admitting clinician: Justice Quinonez DS: Diagnosis Discharge Diagnosis (1) Spinal stenosis of lumbar region with neurogenic claudication: Status: Acute DS: Summary Time Attestation Discharge Coordination Time (in mins): 5 Quality: Safe Use of Opioids Does Pt have an Active Cancer Diagnosis on the Problem List?: No Quality: Stroke Does the patient have a stroke diagnosis?: No Physical Exam Vital Signs: Vital Signs: Last Vital Signs Temp 99.0 F 06/13/24 08:33 Pulse 70 06/13/24 08:33 Resp 16 06/13/24 08:33 BP 122/69 06/13/24 08:33 Pulse Ox 93 06/13/24 08:33 O2 Del Method Room Air 06/13/24 08:33 BMI result Body Mass Index 46.3 Discharge Plan Discharge Patient Disposition: Home, Self-Care Referrals: Anny Gallo MD [Primary Care Provider] - 1 Week Discharge Medications: New docusate sodium [Colace] 100 mg capsule 100 mg PO BID Qty: 20 0RF oxycodone 5 mg tablet 5 mg PO Q4H PRN (Reason: pain) Qty: 30 0RF Rx Instructions: Partial Fill upon patient request. Continued fluticasone propion-salmeterol [Advair HFA] 115-21 mcg/actuation HFA aerosol inhaler 1 puff inhalation BID 90 Days Qty: 36 2RF multivitamin Tablet 1 tab PO DAILY ascorbic acid (vitamin C) [Vitamin C] 1,000 mg Tablet 1,000 mg PO BID cyanocobalamin (vitamin B-12) [Vitamin B-12] 1,000 mcg Tablet 1,000 mcg PO DAILY calcium carbonate-vitamin D3 600 mg-5 mcg (200 unit) Tablet 1 tab PO DAILY acetaminophen 650 mg Tablet Extended Release 650 mg PO Q12H glucosamine-chondroitin 500-400 mg Capsule 1 cap PO DAILY Rx Instructions: give with meal/snack vitamin E (dl, acetate) 450 mg (1,000 unit) Capsule 450 mg PO BID cranberry conc-ascorbic acid 4,200-20 mg Capsule 1 cap PO DAILY magnesium oxide 300 mg magnesium Tablet 300 mg PO DAILY escitalopram oxalate 20 mg tablet 40 mg PO QAM omeprazole 20 mg capsule,delayed release(DR/EC) 20 mg PO QAM loratadine [Claritin] 10 mg tablet 10 mg PO QAM cholecalciferol (vitamin D3) 25 mcg (1,000 unit) tablet 25 mcg PO DAILY omega-3 fatty acids 1,000 mg capsule 1,000 mg PO DAILY fluticasone propionate [Flonase Allergy Relief] 50 mcg/actuation spray,suspension 2 spray intranasal DAILY 90 Days Qty: 3 3RF Rx Instructions: administer into each nostril Discharge Orders: Discharge Order (Routine); Ordered 06/13/24 Ordered By: Justen Bustillos Diet: Advance to usual diet Activity on Discharge: As tolerated Activity Restrictions/Additional Instructions: After your spinal surgery we ask you to observe the following restrictions/guidelines: Activity: It is normal to feel some discomfort as you increase your activity, but that will improve with time. We ask you avoid heavy lifting or acitivities that cause pain. As a general rule, 8lbs is a safe limit for lifting right after surgery. Walk as much as you feel comfortable but not to exhaustion. You will feel extra tired the first few days after surgery. Stay well hydrated. It is OK to walk up and down stairs You may return to driving when you are off narcotics (such as vicodin, oxycodone, dilaudid, etc), and you are back to normal functional capacity. If you have any concerns please check with office before driving. Return to work is specific to each patient and each surgery, so please speak with your doctor/PA at first follow up. Please bring paperwork such as FMLA at that time if you need it filled out. Medications: For optimum pain control, it is best to start with a combination of 500 mg of Tylenol every 4 hours with 600 mg of Motrin every 8 hours, and use narcotics as needed in between for breakthrough pain. We will give you a short supply of narcotics after surgery (usually one weeks worth). If you need more please call the office but do not use more than prescribed. You will need to give our office 48 hours notice if you need narcotics refilled and we do not fill narcotics on weekends or evenings. If you are on a narcotic, it is a good idea to take a stool softener such as colace or senna to avoid constipation If you take blood thinner such as aspirin, Plavix, Coumadin, Effient, Eliquis etc for conditions such as Afib, DVT, Pulmonary embolus, coronary disease, stents etc please speak with your surgeon about specific details as to when you can resume these medications. You can resume NSAIDs on post op day 1 (eg: Motrin, Naproxen, etc). Follow up: Please call the office, , after surgery to arrange a 3 week follow up for wound check. Wound Care: You may remove your dressing on the first day after surgery. You may leave open to air. Please do not remove the steri strips underneath. they will fall off on their own in one week. IT IS NORMAL FOR THE WOUND TO OOZE OR BE BLOODY FOR A FEW DAYS AFTER SURGERY. IF THIS HAPPENS JUST PLACE NEW DRESSING OVER IT TO AVOID STAINING CLOTHES. You may shower on post op day # 1 We ask that you do not let the water soak the wound. If it does get wet, just towel dry lightly. Please do not scrub your incision or place any type of chemical/ointment on the wound. No tub baths, pools or jacuzzis for one month. If you have any leaking or redness from your wound, or fevers, please call office Print Language: Korean
--- NOTE | 2024-06-13 11:52 | W.PM.OPN ---
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 I have explained the nature, purpose and benefits of the operation. I have discussed the risks and benefit of the operation including possible complications or adverse events with patient/family. Alternative(s) were discussed with the patient with their relative benefits and risks as well as the consequences of not accepting the operation were included in obtaining consent. Surgeon: KASSANDRA BALLARD MD, PHD Procedure Assisted By: Justen wiley Description of Procedure This 74-year-old female suffering from neurogenic claudication due to severe L4-5 spinal stenosis. The patient was offered a a decompression . The procedure complications were explained. The patient was consented. The patient was brought to the operating room and endotracheally intubated. The patient was turned in prone position on the Yung frame. Prep and drape was done followed by timeout. Physician licensed physical therapist assistant provided access. A mid lumbar incision was made followed by release of the paravertebral muscle on the right side to expose the L4-5 lamina and facet joint. An intraoperative x-ray was obtained to confirm the correct level. The microscope was brought in. I took over the procedure. The high-speed drill was used to do a L4-5 laminotomy. The hypertrophied flavum ligament was opened then resected to decompress the underlying thecal sac. To my surprise there was a cystic lesion that encased the right L5 nerve root. The cystic extradural mass was identified and dissected from the L5 nerve root. When the careful dissection was completed the cyst was removed which led to a good decompression of the L5 nerve root. Were still dealing with the central stenosis as well. And therefore I turned the patient contralaterally and undercut the spinous process and in this way I was able to decompress the contralateral side as well by removing more flavum ligament. A long the nerve root could be easily passed, a sign of adequate decompression of the nerve root . The microscope was removed. Hemostasis was done. Incision was closed in 2 layers. Steri-Strips were used to approximate incision. An OpSite with Tegaderm was used to cover the incision. All sponge needle counts were correct. Patient was extubated and transported in stable is to recovery room. Postoperative diagnosis: Extradural benign mass compromising the right L5 nerve root and central L4-5 stenosis due to flavum ligament hypertrophy. Anesthesia: General Estimated Blood Loss (ml): 30 mL Duration of Surgery: 70 minutes Postoperative Plan: Discharge to home
[2024-06-13] MEDS: ondansetron HCL 4 MG/2 ML VIAL IVPUSH (13:34)
== END 2024-06-13 14:30 | disposition home or self-care (01) ==
PROVIDERS: Nurse Practitioner; PCP Internal Medicine; Visit Provider Neurological Surgery
PROC: (CPT 63267; principal; 2024-06-13 10:10)
DX: M48.062 Spinal stenosis, lumbar region with neurogenic claudication (principal); M71.38 Other bursal cyst, other site; R26.2 Difficulty in walking, not elsewhere classified; G47.33 Obstructive sleep apnea (adult) (pediatric); J45.909 Unspecified asthma, uncomplicated; Z96.642 Presence of left artificial hip joint; F32.A Depression, unspecified; Z79.51 Long term (current) use of inhaled steroids; Z91.012 Allergy to eggs; Z91.018 Allergy to other foods; Z87.891 Personal history of nicotine dependence; Z79.899 Other long term (current) drug therapy
CPT/HCPCS: 63267; 36415; 80048; 85027; 93005; J0131; J0690; J1100; J2003; J2405; J2704; J3010

== ENCOUNTER → 2024-06-13 07:57 | Outpatient (BNV) | payer MEDICARE, SELFPAY | PROVIDERS: PCP Internal Medicine; Visit Provider Neurological Surgery | DX: M71.38 Other bursal cyst, other site (principal) | CPT/HCPCS: 63267; 69990; 99499 ==

== ENCOUNTER 2024-06-25 11:19 | Outpatient (AMB) | payer MEDICARE, SELFPAY ==
--- NOTE | 2024-06-25 12:01 | A.OFFVIS_ITS ---
Vital Signs 06/25/24 12:04 Height 5 ft 5 in Weight 283 lb BMI 47.1 BP 134/82 Blood Pressure Location Lt brachial Position Sitting Pulse 72 Pulse Source Pulse Oximeter Pulse Oximetry (%) 97 Oxygen Delivery Method Room Air Intake Visit Reasons: follow up BK Publicity Director Required: No Accompanied by: Self / Same As Patient Allergies chocolate Allergy (Mild, Verified 06/25/24 12:05) Gastrointestinal Upset egg Allergy (Mild, Verified 06/25/24 12:05) Diarrhea Do you need a note to return to daycare/school/sports/work: No HPI Comments Details: 74 year old female referred to us by PCP for Sleep Evaluation. She has been on CPAP therapy for years however just had a recent in lab sleep evaluation, she continues to have difficulty falling asleep and staying asleep d/t recent surgery. Frequent awakenings at night and disturbances in sleep. She would like a mask that fits her face but doesn't leave mauricio due to adjustments she makes every night. She would also like to speak with weight management as her BMI is elevated and after her recent hip replacements she has had difficult time managing her weight and would like to know how to better monitor caloric intake. Her PSG in April showed Mild Sleep apnea MAIRA 56.5 with Oxygen Evelio at 83% AHI was 6.5 / hour FOR[facility]LY [facility], [facility] Medical History Peptic ulcer Balance problem Concussion Asthma Low back pain Osteoarthritis Hypersomnia Cataracts, both eyes BK on CPAP Bilateral knee pain Allergic rhinitis Anxiety and depression Hyperlipidemia GERD (gastroesophageal reflux disease) History of fracture of left ankle Surgical History Hx of bilateral cataract extraction History of esophagogastroduodenoscopy (EGD) H/O colonoscopy Status post total hip replacement, left Family History Father Colon cancer Mother Hypertension Sister Breast CA Social History [facility] Are you a primary respiratory care specialist to a significant other at home: No Do you presently have visiting nurse or other home services: No Comment: advised to remove prior to surgery Patient Tobacco Use Status: Former Tobacco user Tobacco use type: Cigarette Years Smoked: 2 e-Cigarette/Vaping Use: Never Used Second Hand Smoke Exposure: No Current occupational status: retired Cognitive needs: No Hearing needs: No Vision needs: No Review of Systems Const All systems reviewed & are unremarkable except as noted in HPI and below Physical Exam Vital Signs: Last Vital Signs Pulse 72 06/25/24 12:04 BP 134/82 06/25/24 12:04 Pulse Ox 97 06/25/24 12:04 Oxygen Delivery Method Room Air 06/25/24 12:04 BMI result Body Mass Index 47.1 Const General: cooperative, comfortable and no acute distress Nutritional Appearance: obese (BMI 47) Orientation/consciousness: patient oriented x3 Eyes Pupils: Equal, round and reactive pupils present Neck Neck: Yes full ROM Resp Effort & Inspection: normal respiratory effort and able to speak in complete sentences Neuro General: patient oriented x3 Cranial nerves: Yes CN's II-XII intact bilaterally, Yes Facial sensation intact/muscles of mastication intact, Yes Equal, round and reactive pupils present, Yes Normal accommodation reflex present, Yes Bilaterally intact EOM present, Yes Nystagmus not present, Yes Normal facial strength present, Yes Midline tongue present, Yes Ability to bilaterally rotate head present and Yes Ability to bilaterally elevate shoulders present Motor exam (neuro): 5/5 motor strength present throughout Deep tendon reflexes (DTR's): Right triceps reflex intensity grade: 2+, Left triceps reflex intensity grade: 2+, Rt Biceps (C5, C6): 2+, Left biceps reflex intensity grade: 2+, Right brachioradialis reflex intensity grade: 2+, Left brachioradialis reflex intensity grade: 2+, Right patellar reflex intensity grade: 2+ and Left patellar reflex intensity grade: 2+ Coordination: [id number] test normal Results Reviewed Results Reviewed: Her PSG in April showed Mild Sleep apnea MAIRA 56.5 with Oxygen Evelio at 83% AHI was 6.5 / hour Assessment & Plan Assessment & Plan (1) Fatigue due to sleep pattern disturbance: Code(s): R53.83 - Other fatigue; G47.9 - Sleep disorder, unspecified Category: Medical (2) Snoring: Code(s): R06.83 - Snoring Category: Medical (3) Obesity: Code(s): E66.9 - Obesity, unspecified Category: Medical Qualifiers: Body mass index: BMI 45.0-49.9 Obesity type: unspecified obesity type Qualified Code(s): E66.813 - Obesity, class 3; E66.01 - Morbid (severe) obesity due to excess calories; Z68.42 - Body mass index [BMI] 45.0-49.9, adult Plan Mild Sleep Apnea AHI 6.5 and Oxygen Evelio at 83%. Start use of CPAP daily, especially when you take naps daily. Clean mask, supplies and tubing as needed, hand picker the new equipment. Download the alaina for [facility] so that you can monitor your daily sleep patterns. Obesity Weight Management discussion Coding Level of Care Code Est Pt Level 3 (29766) Diagnoses Fatigue due to sleep pattern disturbance R53.83; G47.9 Snoring R06.83 Class 3 severe obesity with serious comorbidity and body mass index (BMI) of 45.0 to 49.9 in adult, unspecified obesity type E66.813; E66.01; Z68.42 Body mass index: BMI 45.0-49.9 Obesity type: unspecified obesity type Time Spent (min) 30 Comment at baseline
[2024-06-25 12:04] VITALS: BP 134/82; PULSE 72; O2SAT 97; BMI 47.1
== END 2024-06-25 12:35 | disposition home or self-care (01) ==
PROVIDERS: PCP Internal Medicine; Visit Provider Physician Assistant Medical
DX: R53.83 Other fatigue (principal); G47.9 Sleep disorder, unspecified; R06.83 Snoring; E66.813 Obesity, class 3; E66.01 Morbid (severe) obesity due to excess calories; Z68.42 Body mass index [BMI] 45.0-49.9, adult
CPT/HCPCS: 99213

== ENCOUNTER → 2024-06-25 11:19 | Outpatient (BNVA) | payer MEDICARE, SELFPAY | PROVIDERS: PCP Internal Medicine; Visit Provider Physician Assistant Medical | DX: G47.9 Sleep disorder, unspecified (principal); R53.83 Other fatigue; R06.83 Snoring; E66.813 Obesity, class 3; Z68.42 Body mass index [BMI] 45.0-49.9, adult | CPT/HCPCS: 99212 ==

== ENCOUNTER 2024-06-26 11:06 | Outpatient (AMB) | payer MEDICARE, SELFPAY ==
[2024-06-26 11:17] VITALS: BP 126/68; PULSE 69; O2SAT 96; BMI 46.6
--- NOTE | 2024-06-26 11:17 | A.OFFPC_ITS ---
Vital Signs 06/26/24 11:17 Height 5 ft 5 in Weight 280 lb BMI 46.6 BP 126/68 Blood Pressure Location Rt brachial Position Sitting Pulse 69 Pulse Source Pulse Oximeter Pulse Oximetry (%) 96 Oxygen Delivery Method Room Air Intake Visit Reasons: Annual PE - see comment Allergies chocolate Allergy (Mild, Verified 06/26/24 11:29) Gastrointestinal Upset egg Allergy (Mild, Verified 06/26/24 11:29) Diarrhea Medication List - Last Reconciled 06/26/24 by Anny Gallo MD acetaminophen ER 650 mg PO Q12H albuterol sulfate 90 mcg/actuation (Ventolin HFA) 2 puffs inhalation Q6H PRN ascorbic acid (vitamin C) (Vitamin C) 1,000 mg PO BID calcium carbonate-vitamin D3 600 mg-5 mcg (200 unit) 1 tab PO DAILY cholecalciferol (vitamin D3) 25 mcg PO DAILY cranberry conc-ascorbic acid 4,200-20 mg 1 cap PO DAILY cyanocobalamin (vitamin B-12) (Vitamin B-12) 1,000 mcg PO DAILY escitalopram oxalate 40 mg (2 x 20 mg) PO QAM 3 months fluticasone propion-salmeterol 115-21 mcg/actuation (Advair HFA) 1 puff inhalation BID 3 months fluticasone propionate 50 mcg/actuation (Flonase Allergy Relief) 2 sprays intranasal DAILY 3 months glucosamine-chondroitin 500-400 mg 1 cap PO DAILY loratadine (Claritin) 10 mg PO QAM magnesium oxide 300 mg PO DAILY multivitamin 1 tab PO DAILY omega-3 fatty acids 1,000 mg PO DAILY omeprazole 20 mg PO QAM vitamin E (dl, acetate) 450 mg PO BID Tobacco use date assessed: 06/26/24 Fall risk assessment: 1 Fall in past year Last assessed Fall Risk: 06/26/24 Dental Screening Dental Screen Date: 06/26/24 Did you have a dental visit in the last 12 months?: Yes Did you have a dental problem in the last 6 months where you did not have access to dental care?: Yes Was dental information given to patient?: Patient has dentist HPI Annual PE - see comment HPI Details 74 -year-old lady with history of anxiet y and depression currently stable and controlled on escitalopram 40 mg daily, has gastroesophageal reflux disease controlled on omeprazole, mild intermittent asthma, hyperlipidemia controlled with diet, here today for her physical examination. 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 Quinonez with good results. - up-to-date wit her screening mammogram , done at [facility] earlier this year with benign findings. - had a screening colonoscopy ordered by her previous PCP last 03/21/2017 with tubular adenoma polyp removed. Overdue to have a repeat colonoscopy, was supposed to be done in 2021. -handicap ayesha completed and given to patient [facility] Medical History (Updated 07/01/24 @ 00:41 by Anny Gallo MD) History of adenomatous polyp of colon Peptic ulcer Balance problem Concussion Asthma Low back pain Osteoarthritis Hypersomnia Cataracts, both eyes BK on CPAP Bilateral knee pain Allergic rhinitis Anxiety and depression Hyperlipidemia GERD (gastroesophageal reflux disease) History of fracture of left ankle Surgical History Hx of bilateral cataract extraction History of esophagogastroduodenoscopy (EGD) H/O colonoscopy Status post total hip replacement, left Family History Father Colon cancer Mother Hypertension Sister Breast CA Social History [facility] Are you a primary cattle care worker to a significant other at home: No Do you presently have visiting nurse or other home services: No Comment: advised to remove prior to surgery Patient Tobacco Use Status: Former Tobacco user Tobacco use type: Cigarette Years Smoked: 2 e-Cigarette/Vaping Use: Never Used Second Hand Smoke Exposure: No Current occupational status: retired Cognitive needs: No Hearing needs: No Vision needs: Yes Questionnaire PHQ-9 Over the last 2 weeks, how often have you been bothered by any of the following problems? 1. Little interest or pleasure in doing things: not at all 2. Feeling down, depressed, or hopeless: not at all 3. Trouble falling or staying asleep, or sleeping too much: several days 4. Feeling tired or having little energy: several days 5. Poor appetite or overeating: several days 6. Feeling bad about yourself - or that you are a failure or have let yourself or your family down: not at all 7. Trouble concentrating on things, such as reading the newspaper or watching television: not at all 8. Moving or speaking so slowly that other people could have noticed. Or the opposite - being so fidgety or restless that you have been moving around a lot more than usual: several days 9. Thoughts that you would be better off or of hurting yourself in some way: not at all Total score: 4 Depression Screening Interpretation: Positive (Currently on escitalopram 40 mg daily) Depression Screening Follow-up: Existing condition, In treatment and Community Mental Health Worker F/U Depression Screening Done: Yes Source: Developed by Drs. Yang Ryan, Keyonna Delacruz, Kendell Shipman and colleagues, with an educational jesus from [employer]. Thrive Questionnaire Date Thrive assessed: 01/01/24 I am a: Patient What is your living situation today?: I have a steady place to live Within the past 12 months, did the food you bought not last and you didn't have the money to get more?: Never true Within the past 12 months, did you worry whether your food would run out before you got money to buy more?: Never true Do you have trouble paying for medicines?: No Do you have trouble getting transportation to medical appointments?: No Do you have trouble paying your heating and electricity bill?: No Do you have trouble taking care of your child, family member or friend?: I choose not to answer this question Do you have trouble with day-to-day activities such as bathing, preparing meals, shopping, managing finances, etc.?: No Are you currently unemployed and looking for a job?: No Are you interested in more education?: No Please select the resources that you would like help with: None Currently or been in a relationship where the following occur: No concerns re ported THRIVE Score: 0 AUDIT C Alcohol Use Questionnaire (AUDIT-C) 1. How often do you have a drink containing alcohol?: Never Total Score: 0 CARLITA-7 AMB Questionnaire CARLITA-7 Date CARLITA - 7 assessed: 01/01/24 Feeling nervous, anxious, or on edge: 1 = Several days Not being able to stop or control worryin = Not at all Worrying too much about different things: 0 = Not at all Trouble relaxin = Several days Being so restless that it is hard to sit still: 1 = Several days Becoming easily annoyed or irritable: 0 = Not at all Feeling afraid as if something awful might happen: 0 = Not at all Total CARLITA-7 score (0-4 normal; 5-9 mild; 10-14 moderate; 15-21 severe): 3 Source: Developed by Drs. Yang Ryan, Keyonna Delacruz, Kendell Shipman and colleagues, with an educational jesus from [employer]. Review of Systems Const Reports no additional complaints Eyes Reports no additional complaints ENT Reports no additional complaints Card Denies chest pain, Denies edema, Denies irregular heart rhythm, Denies lightheadedness and Denies dyspnea Resp Denies cough and Denies dyspnea GI Reports no additional complaints Reports no additional complaints Musc Reports as per HPI Skin/Breast Denies breast pain, Denies breast mass and Denies rash Neuro Reports no additional complaints Psych Reports no additional complaints Endo Reports no additional complaints Elliott/Lymph Denies easy bleeding and Denies easy bruising Aller/Immun Reports no additional complaints Physical exam (Primary Care) Vital Signs: Last Vital Signs Pulse 69 06/26/24 11:17 BP 126/68 06/26/24 11:17 Pulse Ox 96 06/26/24 11:17 Oxygen Delivery Method Room Air 06/26/24 11:17 BMI result Body Mass Index 46.6 Tobacco/Smoking Status: Tobacco use Status Tobacco use date assessed 06/26/24 06/26/24 11:19 Patient Tobacco Use Status Former Tobacco user 06/26/24 11:19 Tobacco use type Cigarette 06/26/24 11:19 e-Cigarette/Vaping Use Never Used 06/26/24 11:19 PHQ-9: PHQ-9 Score PHQ-9: Total score 4 07/01/24 00:22 Depression Screening Interpretation: Positive (Currently on escitalopram 40 mg daily) Depression Screening Follow-up: Existing condition, In treatment and Community Mental Health Worker F/U Thrive Assessment: Date of Thrive Assessment Date Thrive assessed 01/01/24 06/26/24 11:19 Currently or been in a relationship where the following occur: No concerns reported Const General: no acute distress and alert Nutritional Appearance: obese Orientation/consciousness: patient oriented x3 [facility] General nose exam: Normal external nose present Face and sinus: Yes face symmetric Mouth: Normal oral and palatal mucosa present, oropharynx normal and moist mucous membranes Eyes General: appearance normal, both eyes and all related structures Neck Neck: Yes full ROM, Yes no lymphadenopathy and Yes supple Chest Breast/axilla palpation: normal palpation of the breasts Resp Effort & Inspection: normal respiratory effort and able to speak in complete sentences Auscultation: clear to auscultation bilaterally Cardio Rate: regular rate Rhythm: regular rhythm Heart sounds: S1 normal heart sound present and S2 normal heart sound present GI Palpation (GI): Soft to palpation, nontender and no masses Auscultation: normal bowel sounds Other: Last Pap was done in 2021 with normal findings Back/Spine/Pelvis Back: No back tenderness Skin Nails: yellow and thickened (Toenails on right 3rd and 4th toe) Neuro General: patient oriented x3, tone normal, moves all extremities, Normal light touch and pain sensation and no focal motor deficits Cranial nerves: Yes CN's II-XII intact bilaterally Cognition (Neuro): normal cognition Gait exam (Neuro): Assisted gait required (cane) Extrem Other: Crepitus noted in both knees General: Yes full ROM, Yes no joint enlargement, Yes no clubbing, cyanosis or edema, Yes no calf tenderness and Yes Limp noted Psych Appearance: grossly normal and well kempt Mental Status: mental status grossly normal Speech and movement: Normal speech and movement present Affect: normal affect Coding Level of Care Code Est Pt Prev Care >65y(42888) Diagnoses Annual visit for general adult medical examination with abnormal findings Z00. Pure hypercholesterolemia E78.00 Hyperlipidemia type: pure hypercholesterolemia Mild intermittent asthma, unspecified whether complicated J45.20 Asthma complication type: unspecified History of adenomatous polyp of colon Z86.0101 GERD (gastroesophageal reflux disease) K21.9 Anxiety and depression F41.9; F32.A Non-seasonal allergic rhinitis, unspecified trigger J30.89 Allergic rhinitis seasonality: non-seasonal Allergic rhinitis trigger: unspecified BK on CPAP G47.33 Lumbar stenosis M48.061 Encounter for counseling regarding advance directives Z71.89 Encounter for screening for osteoporosis Z13.820 Assessment & Plan Assessment & Plan (1) Annual visit for general adult medical examination with abnormal findings: Code(s): Z00.01 - Encounter for general adult medical examination with abnormal findings Plan: Will check appropriate labs. Continue regular dental visit every 6 months and regular eye exams, at least every 2 years. Take adequate calcium in diet and vitamin-D 3 at 2000 IU per cap once a day, in addition to weight-bearing exercises to help maintain good muscle tone and weight control. Instructed to do self-breast exam, and continue with yearly mammogram, currently up-to-date, goes to [facility]. Repeat bone density scan ordered. Last colonoscopy on review of medical records was in 2017 with removal of a tubular adenoma polyp, 5 year repeat colonoscopy recommended. Will refer to GI Clinic for repeat colonoscopy. Up-to-date with her flu vaccine, RSV, pneumococcal vaccination and shingles vaccine but does not want to get a COVID vaccine (2) Hyperlipidemia: Code(s): E78.5 - Hyperlipidemia, unspecified Category: Medical Qualifiers: Hyperlipidemia type: pure hypercholesterolemia Qualified Code(s): E78.00 - Pure hypercholesterolemia, unspecified Plan: fasting lipid profile ordered . Continue [place] 3 fatty acid supplements , in addition to adherence to low-cholesterol diet and regular exercise, at least 30 minutes 3 to 4 times a week. Advised patient to make healthy food choices, eat more fruits, vegetables, whole grains, wild caught fish and low-fat dairy. Limit amount of meat and fried or fatty food products, as well as processed foods and fast foods. (3) Mild intermittent asthma: Code(s): J45.20 - Mild intermittent asthma, uncomplicated Category: Medical Qualifiers: Asthma complication type: unspecified Qualified Code(s): J45.20 - Mild intermittent asthma, uncomplicated Plan: Switched from Advair to Symbicort due to insurance coverage (4) History of adenomatous polyp of colon: Comment: Done from her previous provider 03/21/2017 Code(s): Z86.0101 - Personal history of adenomatous and serrated colon polyps Category: Medical Plan: GI referral ordered for repeat colonoscopy (5) GERD (gastroesophageal reflux disease): Code(s): K21.9 - Gastro-esophageal reflux disease without esophagitis Category: Medical Plan: Currently on omeprazole 20 mg daily (6) Anxiety and depression: Code(s): F41.9 - Anxiety disorder, unspecified; F32.A - Depression, unspecified Category: Medical Plan: Continue on escitalopram 40 mg daily (7) Allergic rhinitis: Code(s): J30.9 - Allergic rhinitis, unspecified Category: Medical Qualifiers: Allergic rhinitis seasonality: non-seasonal Allergic rhinitis trigger: unspecified Qualified Code(s): J30.89 - Other allergic rhinitis Plan: Takes loratadine 10 mg once a day (8) BK on CPAP: Code(s): G47.33 - Obstructive sleep apnea (adult) (pediatric) Category: Medical Plan: Compliant with CPAP (9) Lumbar stenosis: Code(s): M48.061 - Spinal stenosis, lumbar region without neurogenic claudication Category: Medical Plan: Recent lumbar diskectomy, still has some difficulty walking for extended periods, handicap placard completed and given to patient to male (10) Encounter for counseling regarding advance directives: Code(s): Z71.89 - Other specified counseling Plan: Initiated the conversation about Advanced Directives. Advanced Directives help patients prepare for current and future decisions about their medical treatment and place of care. Discussed with patient that it is a process where a patients current condition and prognosis are reviewed, their wishes for information regarding their illness are elicited, and likely medical dilemmas are presented and options discussed. Healthcare proxy form completed today. The form can be amended as needed, reviewed yearly and make changes as needed (11) Encounter for screening for osteoporosis: Code(s): Z13.820 - Encounter for screening for osteoporosis Plan: Ordered bone density scan and vitamin-D and calcium levels Orders: Orders Lipid Panel 06/26/24 E78.00 - Pure hypercholesterolemia, unspecified, Z78.0 - Asymptomatic menopausal state Vitamin D 25-OH Total 06/26/24 E78.00 - Pure hypercholesterolemia, unspecified, Z78.0 - Asymptomatic menopausal state Vitamin B12 and Folate 06/26/24 E78.00 - Pure hypercholesterolemia, unspecified, Z78.0 - Asymptomatic menopausal state XR DEXA axial skeleton 06/26/24 F32.A - Depression, unspecified, F41.9 - Anxiety disorder, unspecified, G47.33 - Obstructive sleep apnea (adult) (pediatric), J30.89 - Other allergic rhinitis, K21.9 - Gastro-esophageal reflux disease without esophagitis, M48.061 - Spinal stenosis, lumbar region without neurogenic claudication, Z00.01 - Encounter for general adult medical examination with abnormal findings, Z13.820 - Encounter for screening for osteoporosis, Z71.89 - Other specified counseling, Z78.0 - Asymptomatic menopausal state Referrals Gastroenterology Referral Z86.0101 - Personal history of adenomatous and serrated colon polyps Medications: New Symbicort 160-4.5 mcg/actuation (budesonide-formoterol) 1 inh inhalation BID 3 months 3 inhalers 3RF NS J45.20 - Mild intermittent asthma, uncomplicated Changed From escitalopram oxalate 40 mg PO QAM To escitalopram oxalate 40 mg (2 x 20 mg) PO QAM 3 months 180 tabs 3RF Discontinued fluticasone propion-salmeterol 115-21 mcg/actuation (Advair HFA) Discontinued Reason: Insurance Denied 1 puff inhalation BID 3 months 36 gra ms 2RF
== END 2024-06-26 13:04 | disposition home or self-care (01) ==
PROVIDERS: PCP Internal Medicine; Visit Provider Internal Medicine
DX: Z00.01 Encounter for general adult medical examination with abnormal findings (principal); E78.00 Pure hypercholesterolemia, unspecified; J45.20 Mild intermittent asthma, uncomplicated; Z86.0101 Personal history of adenomatous and serrated colon polyps; K21.9 Gastro-esophageal reflux disease without esophagitis; F41.9 Anxiety disorder, unspecified; F32.A Depression, unspecified; J30.89 Other allergic rhinitis; G47.33 Obstructive sleep apnea (adult) (pediatric); M48.061 Spinal stenosis, lumbar region without neurogenic claudication; Z71.89 Other specified counseling; Z13.820 Encounter for screening for osteoporosis

== ENCOUNTER → 2024-06-26 11:06 | Outpatient (BNVA) | payer MEDICARE, SELFPAY | PROVIDERS: PCP Internal Medicine; Visit Provider Internal Medicine | DX: Z00.01 Encounter for general adult medical examination with abnormal findings (principal); E78.00 Pure hypercholesterolemia, unspecified; J45.20 Mild intermittent asthma, uncomplicated; K21.9 Gastro-esophageal reflux disease without esophagitis; F41.9 Anxiety disorder, unspecified; F32.A Depression, unspecified; J30.89 Other allergic rhinitis; G47.33 Obstructive sleep apnea (adult) (pediatric); M48.061 Spinal stenosis, lumbar region without neurogenic claudication; Z86.0101 Personal history of adenomatous and serrated colon polyps; Z71.89 Other specified counseling | CPT/HCPCS: 96127; 99397 ==

== ENCOUNTER 2024-07-05 14:33 | Outpatient (AMB) | payer MEDICARE, SELFPAY ==
--- NOTE | 2024-07-04 13:33 | HO.SPINEOV ---
Intake Visit Reasons: 1st post op Allergies chocolate Allergy (Mild, Verified 06/26/24 11:29) Gastrointestinal Upset egg Allergy (Mild, Verified 06/26/24 11:29) Diarrhea Assessment & Plan Assessment & Plan Plan Operation: L4-5 Laminotomy for removal of extradural benign mass with use of microscope She is a pleasant 74-year-old female comes in today with a chief complaint of low back pain and difficulties with ambulation. Coding
--- NOTE | 2024-07-05 14:35 | A.SPINEOV_ITS ---
Intake Visit Reasons: 1st post op Intake Note: Ms. 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 For the 1st few days after surgery she did have a lot of leg pain but that has since gone away. She is walking better not using her cane. She has been dealing with a left groin pain that she was hopeful would go away after surgery but unfortunately that is still there. She has had 3 surgeries on her left hip. She has been told that the implants all look okay but despite that still having a lot of pain in that region. Her wound is all healed up beautifully. We discussed activity guidelines, restrictions expectations after lumbar decompression. I told her that if she still continuing to have the groin pain after her next follow up we could consider working her up for an SI joint problem she did have a lot of pain with internal and external rotation of the hip and compression of the SI joints. I would like to see her back in 6 weeks for another follow-up. Justen Quinonez MD, PhD [facility] Coding Level of Care Code Global (69548) Diagnoses Spinal stenosis of lumbar region with neurogenic claudication M48.062
== END 2024-07-05 15:22 | disposition home or self-care (01) ==
PROVIDERS: PCP Internal Medicine; Visit Provider Physician Assistant
DX: M48.062 Spinal stenosis, lumbar region with neurogenic claudication (principal)
CPT/HCPCS: 99024

== ENCOUNTER → 2024-07-05 14:33 | Outpatient (BNVA) | payer MEDICARE, SELFPAY | PROVIDERS: PCP Internal Medicine; Visit Provider Physician Assistant | DX: M48.062 Spinal stenosis, lumbar region with neurogenic claudication (principal); Z47.89 Encounter for other orthopedic aftercare; Z98.890 Other specified postprocedural states | CPT/HCPCS: 99212 ==

== ENCOUNTER 2024-08-06 14:11 | Outpatient (REF) | payer MEDICARE, SELFPAY ==
--- NOTE | ~2024-08-06 | MM_ITS ---
EXAMINATION: DXA BONE DENSITY AXIAL HISTORY: Estrogen deficiency TECHNIQUE: Tallyfy Dual energy absorptiometry (DEXA) of the lumbar spine, total right hip, and femoral neck was performed. The left hip was not evaluated due to history of prior left total hip arthroplasty. COMPARISON: There are no prior studies for comparison. FINDINGS: The bone mineral density of the lumbar spine is 1.646 with a T-score of 3.7, and a Z-score of 4.3. The bone mineral density of the right total hip is 1.130 with a T-score of 1.0, and a Z-score of 1.7. The bone mineral density of the right femoral neck is 0.995 with a T-score of -0.3, and a Z-score of 0.7. MM/XR DEXA axial skeleton IMPRESSION: Based on bone mineral density, and according to World Health Organization (WHO) criteria, the diagnosis is consistent with normal bone mineral density. All bone density values are in grams per centimeter squared (g/cm2). Statistically, 68% of repeat scans fall within 1 SD (+/- 0.010 g/cm2 for AP spine L1-L4) and 1 SD (+/- 0.012 g/cm2 for femur total) FRAX is a trademark of the [employer]'s [employer] Metabolic Bone Disease, a World Health Organization (WHO) Collaborating Center. Electronically signed by: Yang Segundo MD 08/12/2024 11:40 AM [facility]
--- OUTSIDE RECORDS SUMMARY | 2024-08-06 15:09 | XMS_ITS ---
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 Name Role Phone Sabino PARKER, Anny Dominique Primary Care Provider Un available Sarah Mayer Unavailable [phone] Allergies No Known Allergies REASON FOR VISIT Pcp-12/31, Painful Toe(s), Painful nail(s) aggravated by shoes causing difficulty standing/walking,Foot pain Medications Medication SIG (Take, Route, Frequency, Duration) Notes Start Date End Date Status Loratadine Active Flonase Active Advair HFA Active Omeprazole Active Lexapro Active Social History Tobacco Use: Social History Observation Description Date Details (start date - stop date) Former Smoker NA - NA Tobacco Use/Smoking Question Answer Notes Are you a: former smoker Additional Findings: Tobacco Non-User Current no n-smoker Alcohol Screen Question Answer Notes Did you have a drink containing alcohol in the p ast year? No Points 0 Interpretation Negative Tobacco use other than smoking: Question Answer Notes Are you an other tobacco user? No Problems Problem Type SNOMED Code ICD Code Onset Dates Problem Status W/U Status Risk Notes Problem Acquired hammer toe of right foot (7602278471036106) Other hammer toe(s) (acquired), right foot (M20.41) Active confirmed Problem Localized, primary osteoarthritis of the ankle and/or foot (130767894) Arthritis of joint of lesser toe, right (M19.071) Active confirmed Vital Signs Height 5 ft 5 in in 04/12/2024 Weight 270 lbs 04/12/2024 BMI 44.93 kg/m2 04/12/2024 Blood pressure systolic 124 mm Hg 04/12/20 24 Blood pressure diastolic 80 mm Hg 024 Encounters Encounter Location Date Provider Diagnosis [facility] [address] [address] 04/12/2024 Sarah Mayer Other hammer toe(s) (acquired), right foot M20.41 ; Metatarsalgia, left foot M77.42 ; Arthritis of joint of lesser toe, right M19.071 ; Onychomycosis B35.1 ; Pain in left toe(s) M79.675 ; Pain in left foot M79.672 and Pain in left ankle and joints of left foot M25.572 Assessments Encounter Date Diagnosis (ICD Code) Assessment Notes Treatment Notes Treatment Clinical Notes Section Notes 04/12/2024 Other hammer toe(s) (acquired), right foot (ICD-10 - M20.41) 04/12/2024 Metatarsalgia, left foot (ICD-10 - M77.42) 04/12/2024 Arthritis of joint of lesser toe, right (ICD-10 - M19.071) 04/12/2024 Onychomycosis (ICD-10 - B35.1) 04/12/2024 Pain in left toe(s) (ICD-10 - M79.675) 04/12/2024 Pain in left foot (ICD-10 - M79.672) 04/12/2024 Pain in left ankle and joints of left foot (ICD-10 - M25.572) Plan Of Treatment Next Appt Details Follow Up: 2 Months, Reason: Provider Name:Sarah mullen, 10/11/2024 11:15:00 AM, [address] [place] [address], [id number], Procedure Notes * Category Sub-Category Detail Notes Debride Nail 6-10 Nail debridement Performance o f this nail treatment by a nonprofessional would put this patients foot and overall health at risk. Therefore, nail debridement was performed extensively to reduce/remove overall nail length, girth, thickness, subungual debris, and necrotic tissue, by manual and/or electrical means through the use of a nail nipper and/or dremel-type grinder carbon plant, to a more viable healthy nail plate or bed tissue 6-10. Silver nitrate used for any petechial bleeding as necessary. Definitive antifungal treatment options have been reviewed and discussed with the patient. The patient chooses, no pharmaceutical tx - 80984 Progress Notes * Alex ESPINOZAOB: [birth year] (74 yo F)Acc No.[id number]:04/12/2024 Progress Notes Patient:?Laury Espinoza Provider:?Sarah Mayer DPM :1950???Age:74 Y???Sex:Female D ate:04/12/2024 Address:[address] [place] [address] , [place], [id number] Pcp:Didi Pedro Subjective: * Chief Complaints: * ???Pcp-12/31Painful Toe(s)Pa inful nail(s) aggravated by shoes causing difficulty standing/walkingFoot pain * HPI: ???Toe pain:?Nature:?tenderness.?Location:?Right foot , 2nd toe , 3rd toe , 4th toe.?Course:?worse.?Aggravated by:?any pressure, shoes.?Treatments:?rest/alter normal daily activity, change in shoes.?Painful Nails:?Pt States Last PCP Visit:?Date:?12/26/2023 ???Foot Pain:?Location:?LEFT , Outside , Midfoot.?Duration:?several years.?Onset:?Pt has had multiple left hip surgeries/replacements.?Course:?worse.?Treatments:?rest/alter normal daily activity.? * ROS:?General/Constitutional:?Nausea?denies.?Vomiting?denies.?Hunger Thirst?denies.?Loss appetite?denies.?Chills?denies.?Fatigue?denies.?Fever?denies.?Night Sweats?denies.?Unexplained weight loss?denies.?Unexplained weight gain?denies.?HEENTM:?Dentures?denies.?Dizziness?denies.?Glasses/contacts?admits.?Retinopathy?de nies.?Blurred/double vision?denies.?TMJ?denies.?Discharge/drainage?denies.?Implants?denies.?Sore throat?denies.?Dental implants?denies.?Hard of hearing ?denies.?Difficulty chewing/swallowing/speaking?denies.?Nose bleeds?denies.?Sore mouth?denies.?Respiratory:?On Oxygen?denies.?Pneumonia/pleurisy?denies.?Bronchitis?denies.?Emphysema?denies.?C oughing?denies.?Cough blood?denies.?Shortness of breath?denies.?Wheezing?denies.?Cardiovascular:?Pacemaker?denies.?MVP?denies.?WPW?denies.?CHF?denies.?Heart attack?denies.?Septal defect?denies.?Rapid beat?denies.?Chest pain ?denies.?Atrial Fib.?denies.?Murmur/Palpitations?denies.?Gastrointestinal:?Hemorrhoids?denies.?Stomach/Abdominal pain?denies.?Dark blood stool?denies.?Irritable bowel ?denies.?Constipation?denies.?Diarrhea?denies.?Hematology:?Swelling?denies.?Clots?denies.?Varicose Veins?denies.?Bruising?denies.?Bleeding problem?denies.?Genitourinary:?Blood urine?denies.?Frequent/Painfu/urination/bladder control?admits.?Kidney stones?denies.?Infection (UTI)?denies.?Nephropathy?denies.?sex trans dis (STD)?denies.?Prostate?denies.?Musculoskeletal:?Hammertoes?denies.?Bunions?denies.?Back Pain?admits.?Muscle Cramps/ Resting?denies.?Muscle cramps / walking?denies.?Generalized aches and pains?admits.?Weakness?denies.?Integ.:?Hirsch?denies.?Scars?denies.?Corns/calluses?admits.?Ingrown nails?denies.?Painful nails?denies.?Open Sores?denies.?Rashes?denies.?Neurologic:?Difficulty sleeping?denies.?Brain disorder?denies.?Numbness?denies.?Balance trouble?admits.?Confusion?denies.?Fainting/blackouts?denies.?Tingling?admits.?Tr emors?denies.? * Medical History:? * Surgical History:?left hip r eplacement 06/26/2018hip revision, left 11/03/2020 * Hospitalization/Major Diagno stic Procedure:?Denies Past Hospitalization * Family History:?Mother: dece ased, arthritis, foot problems, high blood pressure.?Father: .? * Social History:?Tobacco Use:?Tobacco Use/Smoking?Are you a:?former smoker ?Additional Findings: Tobacco Non-User?Current non-smoker ?Tobacco use other than smoking?Are you an other tobacco user??No ???Drugs/Alcohol:?Drugs?Have you used drugs other than those for medical reasons in the past 12 months??No ?Alcohol Screen?Did you have a drink containing alcohol in the past year??No ?Points?0 ?Interpretation?Negative ???Miscellaneous:?no Caffeine. ?Children: yes, 1. ?Exercise: yes, walking, exercise/dancing. ?Marital status: . * Medications:?TakingAdvair HF A Loratadine Flonase Omeprazole Lexapro Medication List reviewed and reconciled with the patientTaking Cristel HFA Taking Loratadine Taking Flonase Taking Omeprazole Taking Lexapro Medication List reviewed and reconciled with the patient * Allergies:?N.K.D.A.yes[Aller gies Verified] Objective: * Vitals:?Ht: 5 ft 5 in, Wt:27 0, BMI:44.93, Shoe size: 9M, BP:124/80 mm Hg, Ht-cm: 165.1 cm, Wt-k.47 kg. * Examination: ???Orthopedic: ?MUSCLE STRENGTH:?5/5 all groups in a symmetrical fashion, B/L.?DIGITAL DEFORMITIES:?Digital contracture, PIPJ, 2-5 B/L, incompl-reducible with WB, or to push-up test, no over, nor underlapping.?MPJ PATHOLOGY:?Pain on Metatarsal Palpation 5th LEFT.?FOOTWEAR:? shoe gear properties exacerbate patients foot/toe deformity.?Nails: ?NAILS are:?Elongated, overgrown, dystrophic, lytic, greater than 3mm thick, discolored and friable with crumbly malodorous subungual debris, with pain on palpation , 1-5 B/L.?Neurological: ?SENSORY:?Neurological exam reveals intact sensorium, pain sensation normal, vibration sensation intact, pinprick sensation is normal in the lower extremities, Pt denies, anesthesia, burning, paresthesia, tingling, B/L.?General Examination: ?GENERAL APPEARANCE:?Reveals a pleasant, alert, well nourished, well- developed, well hydrated individual, who demonstrates proper attention to hygiene/body habitus, and is in no acute distress, Pt serves as own historian for office visit today.?ORIENTED:?person, place, and time.?Vascular: ?DP PULSES(B):?3/4, B/L.?PT PULSES(B):?3/4, B/L.?CAPILLARY FILL TIME:?immediate, all digits, B/L.?TROPHIC CONDITION-TEXTURE/ELASTICITY/TURGOR/HAIR GROWTH(B):?normal, B/L.?TEMPERTURE GRADIENT(C):?normal, warm to cool, proximal to distal, B/L, B/L.?Dermatologic: ?SKIN FINDINGS:?Skin exam reveals normal color, texture, elasticity, and turgor. There are no masses, nor excrescences. The interspaces are clear, B/L.? Assessment: * Assessment: 1.?Metatarsalgia, left foot - M77.42 (Primary)?2.?Other hammer toe(s) (acquired), right foot - M20.41?3.?Arthritis of joint of lesser toe, right - M19.071?4.?Onychomycosis - B35.1?5.?Pain in left toe(s) - M79.675?6.?Pain in left foot - M79.672 7.?Pain in left ankle and joints of left foot - M25.572? Plan: * Treatment: * Procedures:?Debride Nail 6-10:?Nail debridement?Performance of this nail treatment by a nonprofessional would put this patients foot and overall health at risk. Therefore, nail debridement was performed extensively to reduce/remove overall nail length, girth, thickness, subungual debris, and necrotic tissue, by manual and/or electrical means through the use of a nail nipper and/or dremel-type grinder carbon plant, to a more viable healthy nail plate or bed tissue 6-10. Silver nitrate used for any petechial bleeding as necessary. Definitive antifungal treatment options have been reviewed and discussed with the patient. The patient chooses, no pharmaceutical tx - 85017.? * Procedure Codes:?62889 DEBRI DE NAIL, 6 OR MORE * Preventive Medicine:? ??Counseling:?Discussion:?-04: Office or other outpatient visit for the evaluation and management of a new patient, which required a medically appropriate history and/or examination and MODERATE level of DECISION MAKING for: 1 OR MORE CHRONIC PROBLEM(S) THATS WORSENING, 2 STABLE CHRONIC PROBLEMS, A NEWLY DIAGNOSED PROBLEM WITH UNCERTAIN PROGNOSIS, AN ACUTE COMPLICATED INJURY WITH MULTIPLE TREATMENT OPTIONS, OR AN ACUTE PROBLEM WITH ACCOMPANYING SYSTEMIC SYMPTOMS, THAT POSE(S) A MODERATE RISK OF MORBIDITY. THIS CONDITION MAY ALSO INCLUDE RX DRUG MANAGEMENT, OR A DECISON FOR MINOR SURGERY. The visit on the day of the encounter encompassed interpreting the data and educating the patient as to the nature of their condition, treatment options available according to their individual PMH, meds, allergies, and overall health/living conditions, as well as any potential risks or complications that may occur from a failure to adhere to, and participate in, the recommended course of therapy. The discussion included a complete verbal, and/or written explanation of the examination results, any x-rays taken, the proposed diagnosis, and outline of the treatment plan. A schedule for future care needs was also explained. The patient verbalized an understanding of the instructions at this time and agreed to be an active participant in their treatment. If the patient should think of any questions or concerns after the visit, I have encouraged the patient to call the office.?Digital Surgery:?Digital surgery was discussed with the patient, including the risks of surgery(below), vs not having surgery (persistent pain, deformity, risk for skin ulceration/infection, loss of toe), the potential surg complications, the anesthesia, and the usual post-op course. No guarentees were given. We discussed the potential procedure complications including, but not limited to: pain, swelling, bleeding, scarring, numbness, infection, delayed/non healing, floppy/unstable/shorthened toe, recurrence, failure of the procedure, overcorrection leading to plantarflexed/downward positioned toe, recurrence, need for further surgery, as well as the possibility for loss of the toe itself. We discussed the use of local anesthesia, and the usual post-op course for healing. No guarentees were given. The patient verbally indicated a full understanding of the above conversation, and any other of their questions were answered to their satisfaction. Alternatives to the procedure were also discussed, including conservative care. I also discussed the usual post-operative course and gave no guarantees regarding outcome.?Digital Treatment:?HT- I explained to the patient the possible etiologies of Hammertoes, including genetics/foot type/shoegear/activity level/exercise routine and the risks/benefits of all the different treatment options for their pain including: No treatment at all, Rest, Ice, New/supportive/wider/deeper Shoegear, Digital Padding/Strapping/Taping/Bracing/Gel protective sleeves, Foot/Ankle AFO Bracing, Stretching exercises, Deep Tissue Massage, Arch support/shoe inserts with splay metatarsal padding, and Custom orthoses. I insisted that any digital devices be removed daily and not worn overnight for safety. The patient is to carefully examine the toes daily for any skin irritation while using any splinting or padding device. The advantages and disadvantages of each option were discussed and the patients questions re: shoegear, padding, custom vs prefabricated inserts, activity level, and consistency in home treatment regimens for optimal success were answered to their verbally confirmed satisfaction, dipsensed large crest pad.?Metatarsalgea:?I explained to the patient the possible etiologies of their Metatarsalgea Foot pain, including foot type/shoegear/activity level/exercise routine and the risks/benefits of all the different treatment options for pain including: No treatment at all, Rest, Ice, NSAIDs(only if well tolerated after meals), New/supportive Shoegear, Strappings and Tapings, Foot/Ankle AFO Bracing, Stretching exercises, Deep Tissue Massage, Arch support/shoe inserts, Custom orthoses, Topical analgesics including Aspercream/Voltaren gel, Physical Therapy, Cortisone injection therapy, EPAT/ESWT. Advantages and disadvantages of each option were discussed and the patients questions re: shoegear, custom vs prefabricated inserts, activity level, PO vs Topical medications (and their respective potential complications/drug interactions/side effects), and consistency in home treatment regimens for optimal success were answered to their verbally confirmed satisfaction, advised pt to discuss possible limb length issues since pt has had multiple left orthopedic surgeries with her ortho.?Orthotics:?I explained to the patient the benefits of OT use. I explained that orthoses are medically necessary to decrease the foot pain through proper mechanical control, support of their foot, decrease pain under the painful metatarsal by supplementing the soft tissue, cushion the forefoot by supplementing the soft tissue.?P.R.I.C.E.:?The patient was counseled on the use of P.R.I.C.E. and NSAIDS (if well tolerated) to aid in the recovery from their painful condition.?Shoe Gear Counseling:?The patient and I reviewed the types of shoes they should be wearing. My recommendation included obtaining a well-fitted shoe with a good supportive, non-foldable nor twistable sole, plenty of toe/room for the forefoot, and proper arch support. Based on todays examination, I recommended the patient look for new shoes, by having their feet professionally measured. We discussed that generally the best time of the day for a shoe fitting is the afternoon. Different shoes types and brands to best match the patients occupation and vocation were discussed. Specific brand selection will be up to the patient, their individual foot condition/deformities, and fit. The patient and I reviewed the standard new shoe break in period by wearing them for a few hours a day while checking for redness or sores as wear time is increased. The patient verbally confirmed to understanding the information discussed, The patient and I reviewed the types of shoes they should be wearing. My recommendation included obtaining a well-fitted shoe with a good supportive, non-foldable nor twistable sole, plenty of toe/room for the forefoot, and proper arch support. Based on todays examination, I recommended the patient look for new shoes, by having their feet professionally measured. We discussed that generally the best time of the day for a shoe fitting is the afternoon. Different shoes types and brands to best match the patients occupation and vocation were discussed. Specific brand selection will be up to the patient, their individual foot condition/deformities, and fit. The patient and I reviewed the standard new shoe break in period by wearing them for a few hours a day while checking for redness or sores as wear time is increased. The patient verbally confirmed to understanding the information discussed.? * Follow Up:?2 Months * Images: * Sign off status: Completed true * Provider:?Sarah Mayer, DPM Date:?10/2023 Generated for Sarah rodgers/Brittani/Mireya on:?08/06/2024 03:09 PM EST History and Physical Notes * HPI (History of Present Illness) Category Sub-Category Detail Notes Category Not es Toe pain Nature: tenderness Location: Right foot , 2nd toe , 3rd toe , 4th toe Course: worse Aggravated by: any pressure, shoes Treatments: rest/alter normal da keiko activity, change in shoes Painful Nails Pt States Last PCP Visit: Date:: 12/26/2023 Foot Pain Location: LEFT , Outside , Midfoot Duration: several years Onset: Pt has had multiple left hip surgeries/replacements Course: worse Treatments: rest/alter normal da keiko activity Examination Category Sub-Category Detail Notes Category Not es Neurological SENSORY: Neurological exa m reveals intact sensorium, pain sensation normal, vibration sensation intact, pinprick sensation is normal in the lower extremities, Pt denies, anesthesia, burning, paresthesia, tingling, B/L Dermatologic SKIN FINDINGS: Skin exam reveal s normal color, texture, elasticity, and turgor. There are no masses, nor excrescences. The interspaces are clear, B/L Orthopedic FOOTWEAR: shoe gear proper ties exacerbate patients foot/toe deformity DIGITAL DEFORMITIES: Digital contracture , PIPJ, 2-5 B/L, incompl-reducible with WB, or to push-up test, no over, nor underlapping MPJ PATHOLOGY: Pain on Metatarsal P alpation 5th LEFT MUSCLE STRENGTH: 5/5 all groups in a symmetrical fashion, B/L General Examination GENERAL APPEARANCE: Reveals a pleasant, alert, well nourished, well-developed, well hydrated individual, who demonstrates proper attention to hygiene/body habitus, and is in no acute distress, Pt serves as own historian for office visit today ORIENTED: person, place, and t andria Vascular DP PULSES (B): 3/4, B/L PT PULSES (B): 3/4, B/L CAPILLARY FILL TIME: immediate, all digi ts, B/L TEMPERTURE GRADIENT (C): normal, warm to cool, proximal to distal, B/L, B/L TROPHIC CONDITION-TEXTURE/ELASTICITY/TURGOR/HAIR GROWTH (B): normal, B/L Nails NAILS are: Elongated, overg rown, dystrophic, lytic, greater than 3mm thick, discolored and friable with crumbly malodorous subungual debris, with pain on palpation , 1-5 B/L
--- OUTSIDE RECORDS SUMMARY | 2024-08-06 15:09 | XMS_ITS ---
Author Organization [facility] Address [address] [place] [address] Care Team Providers Care Flexographic Press Plate Setter Name Role Phone Sabino PARKER, Anny Dominique Primary Care Provider Un available Sarah Mayer Unavailable [phone] Allergies No Known Allergies REASON FOR VISIT Painful Toe(s), Painful nail(s) aggravated by shoes causing difficulty standing/walking Medications Medication SIG (Take, Route, Frequency, Duration) Notes Start Date End Date Status Omeprazole Active Flonase Active Lexapro Active Loratadine Active Advair HFA Active Social History Tobacco Use: Social History Observation Description Date Details (start date - stop date) Former Smoker NA - NA Tobacco use other than smoking: Question Answer Notes Are you an other tobacco user? No Tobacco Control (Standard) Question Answer Notes Tobacco use: Former smoker Additional Findings: Tobacco non-user Ex-cigaret te smoker AUDIT-C (Standard) Question Answer Notes Did you have a drink containing alcohol in the p ast year? No Points 0 Interpretation Negative Vital Signs Height 5ft 5in in 07/12/2024 Weight 280 lbs 07/12/2024 BMI 46.59 kg/m2 07/12/2024 Blood pressure systolic 128 mm Hg 07/12/19 25 Blood pressure diastolic 62 mm Hg 025 Encounters Encounter Location Date Provider Diagnosis [facility] [address] [place] [address] 07/12/2024 Sarah Mayer Other hammer toe(s) (acquired), right foot M20.41 ; Onychomycosis B35.1 ; Pain in left toe(s) M79.675 and Pain in left foot M79.672 Assessments Encounter Date Diagnosis (ICD Code) Assessment Notes Treatment Notes Treatment Clinical Notes Section Notes 07/12/2024 Other hammer toe(s) (acquired), right foot (ICD-10 - M20.41) 07/12/2024 Onychomycosis (ICD-10 - B35.1) 07/12/2024 Pain in left toe(s) (ICD-10 - M79.675) 07/12/2024 Pain in left foot (ICD-10 - M79.672) Plan Of Treatment Next Appt Details Follow Up: 2 Months, Reason: Provider Name:Sarah mullen, 10/11/2024 11:15:00 AM, [address] [place] [address], [id number], Procedure Notes * Category Sub-Category Detail Notes Debride Nail 6-10 Nail debridement Due to the cl inical pathology outlined in the exam findings, performance of this nail treatment is medically necessary as its management by an unskilled/untrained nonprofessional would put this patients foot and overall health at risk. Therefore, debridement to affected nail(s), as described in exam (TA, T1, T2, T3, T4, T5, T6, T7, T8, T9, ), was performed exclusively by the physician of record to reduce/remove overall nail length, girth, thickness, subungual debris, and necrotic tissue, by manual and/or electrical means through the use of a nail nipper and/or dremel-type concrete wall grinder operator, to a more viable healthy nail plate or bed tissue 6-10 nails in total. Silver nitrate was used for any petechial bleeding as necessary. Definitive antifungal treatment options, both pharmaceutical and surgical, have been reviewed and discussed with the patient. The patient solely prefers the use of intermittent/as needed professional debridement services for their nail condition and understands the need for additional periodic treatments to maintain effectiveness in symptomatic relief - 94187 Progress Notes * Alex ESPINOZAOB: [birth year] (74 yo F)Acc No.[id number]:07/12/2024 Progress Note Patient:?Laury ESIPNOZA Provider:?Sarah Mayer DPM :1950???Age:74 Y???Sex:Female D ate:07/12/2024 Address:[facility] [address], [place], [place] Pcp:Didi Pedro Subjective: * Chief Complaints: * ???Painful Toe(s)Painful slim l(s) aggravated by shoes causing difficulty standing/walking * HPI: ???Painful Nails:?Pt States Last PCP Visit:?Date:?06/10/2024 ???Toe pain:?Nature:?tenderness.?Location:?Right foot , 3rd toe , 4th toe.?Course:?worse.?Aggravated by:?any pressure, shoes.?Treatments:?rest/alter normal daily activity, change in shoes.? * ROS:?General/Constitutional:?Nausea?denies.?Vomiting?denies.?Hunger Thirst?denies.?Loss appetite?denies.?Chills?denies.?Fatigue?denies.?Fever?denies.?Night Sweats?denies.?Unexplained weight loss?denies.?Unexplained weight gain?denies.?HEENTM:?Dentures?denies.?Dizziness?denies.?Glasses/contacts?admits.?Retinopathy?de nies.?Blurred/double vision?denies.?TMJ?denies.?Discharge/drainage?denies.?Implants?denies.?Sore throat?denies.?Dental implants?denies.?Hard of hearing ?denies.?Difficulty chewing/swallowing/speaking?denies.?Nose bleeds?denies.?Sore mouth?denies.?Respiratory:?On Oxygen?denies.?Pneumonia/pleurisy?denies.?Bronchitis?denies.?Emphysema?denies.?C oughing?denies.?Cough blood?denies.?Shortness of breath?denies.?Wheezing?denies.?Cardiovascular:?Pacemaker?denies.?MVP?denies.?WPW?denies.?CHF?denies.?Heart attack?denies.?Septal defect?denies.?Rapid beat?denies.?Chest pain ?denies.?Atrial Fib.?denies.?Murmur/Palpitations?denies.?Gastrointestinal:?Hemorrhoids?denies.?Stomach/Abdominal pain?denies.?Dark blood stool?denies.?Irritable bowel ?denies.?Constipation?denies.?Diarrhea?denies.?Hematology:?Swelling?denies.?Clots?denies.?Varicose Veins?denies.?Bruising?denies.?Bleeding problem?denies.?Genitourinary:?Blood urine?denies.?Frequent/Painfu/urination/bladder control?admits.?Kidney stones?denies.?Infection (UTI)?denies.?Nephropathy?denies.?sex trans dis (STD)?denies.?Prostate?denies.?Musculoskeletal:?Hammertoes?denies.?Bunions?denies.?Back Pain?admits.?Muscle Cramps/ Resting?denies.?Muscle cramps / walking?denies.?Generalized aches and pains?admits.?Weakness?denies.?Integ.:?Hirsch?denies.?Scars?denies.?Corns/calluses?admits.?Ingrown nails?denies.?Painful nails?admits.?Open Sores?denies.?Rashes?denies.?Neurologic:?Difficulty sleeping?denies.?Brain disorder?denies.?Numbness?denies.?Balance trouble?admits.?Confusion?denies.?Fainting/blackouts?denies.?Tingling?admits.?Tr emors?denies.? * Medical History:? * Surgical History:?left hip r eplacement 06/26/2018hip revision, left 11/03/2020ack Surgery - Lower Spine 06/11/25 * Hospitalization/Major Diagno stic Procedure:?Denies Past Hospitalization * Family History:?Mother: dece ased, arthritis, foot problems, high blood pressure.?Father: .? * Social History:?Tobacco Use:?Tobacco use other than smoking?Are you an other tobacco user??No ?Tobacco Control (Standard)?Tobacco use:?Former smoker ?Additional Findings: Tobacco non-user?Ex-cigarette smoker ???Drugs/Alcohol:?Drugs?Have you used drugs other than those for medical reasons in the past 12 months??No ???Miscellaneous:?Caffeine: no. ?Children: yes, 1. ?Exercise: yes, walking, exercise/dancing. ?Marital status: . 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 ???Drug/Alcohol:?AUDIT-C (Standard)?Did you have a drink containing alcohol in the past year??No ?Points?0 ?Interpretation?Negative * Medications:?TakingAdvair HF A Loratadine Flonase Omeprazole Lexapro Medication List reviewed and reconciled with the patientTaking Advair HFA Taking Loratadine Taking Flonase Taking Omeprazole Taking Lexapro Medication List reviewed and reconciled with the patient * Allergies:?N.K.D.A.yes[Aller gies Verified] Objective: * Vitals:?Ht: 5ft 5in, Wt:280, BMI:46.59, Shoe size: 9.5M, BP:128/62mm Hg, Ht-cm: 165.1 cm, Wt-k.01 kg. * Examination: ???Orthopedic: ?MUSCLE STRENGTH:?5/5 all groups in a symmetrical fashion, B/L.?DIGITAL DEFORMITIES:?Digital contracture, PIPJ, 2-5 B/L, incompl-reducible with WB, or to push-up test, no over, nor underlapping.?Nails: ?NAILS are:?Elongated, overgrown, dystrophic, lytic, greater than 3mm thick, discolored and friable with crumbly malodorous subungual debris, with pain on palpation, TA, T1, T2, T3, T4, T5, T6, T7, T8, T9, signs of pulled lateral nail edge T7, no infection noted.?Neurological: ?SENSORY:?Neurological exam reveals intact sensorium, pain sensation [...] office visit today.?ORIENTED:?person, place, and time.?Vascular: ?DP PULSES (B):?3/4, B/L.?PT PULSES (B):?3/4, B/L.?CAPILLARY FILL TIME:?immediate, all digits, B/L.?TROPHIC CONDITION-TEXTURE/ELASTICITY/TURGOR/HAIR GROWTH (B):?normal, B/L.?TEMPERTURE GRADIENT (C):?normal, warm to cool, proximal to distal, B/L, B/L.?Dermatologic: ?SKIN FINDINGS:?Skin exam reveals normal color, texture, elasticity, and turgor. There are no masses, nor excrescences. The interspaces are clear, B/L.? Assessment: * Assessment: 1.?Other hammer toe(s) (acqu ired), right foot - M20.41 (Primary)???2.?Onychomycosis - B35.1???3.?Pain in left toe(s) - M79.675???4.?Pain in left foot - M79.672??? Plan: * Treatment: * Procedures:?Debride Nail 6-10:?Nail debridement?Due to the clinical pathology outlined in the exam findings, performance of this nail treatment is medically necessary as its management by an unskilled/untrained nonprofessional would put this patients foot and overall health at risk. Therefore, debridement to affected nail(s), as described in exam (TA, T1, T2, T3, T4, T5, T6, T7, T8, T9, ), was performed exclusively by the physician of record to reduce/remove overall nail length, girth, thickness, subungual debris, and necrotic tissue, by manual and/or electrical means through the use of a nail nipper and/or dremel-type concrete wall grinder operator, to a more viable healthy nail plate or bed tissue 6- 10 nails in total. Silver nitrate was used for any petechial bleeding as necessary. Definitive antifungal treatment options, both pharmaceutical and surgical, have been reviewed and discussed with the patient. The patient solely prefers the use of intermittent/as needed professional debridement services for their nail condition and understands the need for additional periodic treatments to maintain effectiveness in symptomatic relief - 40249.? * Procedure Codes:?70688 DEBRI DE NAIL, 6 OR MORE * Preventive Medicine:? ??Counseling:?Discussion:?-13: Office or other outpatient visit for the evaluation and management of an established patient, which required a medically appropriate history and/or examination and LOW level of DECISION MAKING for: 1 STABLE ACUTE UNCOMPLICATED PROBLEM, 2 OR MORE MINOR PROBLEMS, OR 1 STABLE CHRONIC PROBLEM, THAT POSE(S) A LOW RISK FOR MORBIDITY/MORTALITY. The visit on the day of the [...] encouraged the patient to call the office.?Digital Treatment:?HT- I explained to the patient the [...] their verbally confirmed satisfaction, dipsensed large crest pad.?Shoe Gear Counseling:?The patient and I reviewed the [...] Sign off status: Completed true * Provider:?Sarah Mayer DPM Date:?09/2024 Generated for Sarah rodgers/Brittani/Mireya on:?08/06/2024 03:09 PM EST History and Physical Notes * HPI (History of Present Illness) Category Sub-Category Detail Notes Category Not es Toe pain Nature: tenderness Location: Right foot , 3rd toe , 4th toe Course: worse Aggravated by: any pressure, shoes Treatments: rest/alter normal da keiko activity, change in shoes Painful Nails Pt States Last PCP Visit: Date:: 06/10/2024 Examination Category Sub-Category Detail Notes Category Not es Neurological SENSORY: Neurological exa m reveals intact sensorium, pain sensation normal, vibration sensation intact, pinprick sensation is normal in the lower extremities, Pt denies, anesthesia, burning, paresthesia, tingling, B/L Dermatologic SKIN FINDINGS: Skin exam reveal s normal color, texture, elasticity, and turgor. There are no masses, nor excrescences. The interspaces are clear, B/L Orthopedic DIGITAL DEFORMITIES: Digital con tracture, PIPJ, 2-5 B/L, incompl-reducible with WB, or to push-up test, no over, nor underlapping MUSCLE STRENGTH: 5/5 all groups in a [...] crumbly malodorous subungual debris, with pain on palpation, TA, T1, T2, T3, T4, T5, T6, T7, T8, T9, signs of pulled lateral nail edge T7, no infection noted
--- OUTSIDE RECORDS SUMMARY | 2024-08-06 15:10 | XMS_ITS ---
Author Organization [facility] Address [address] [place] [address] Care Team Providers Care Movie Producer Name Role Phone Sabino PARKER, Anny Dominique Primary Care Provider Un available Sarah Mayer Unavailable [phone] REASON FOR VISIT TAR LEVELER PPWK Entered Encounters Encounter Location Date Provider Diagnosis [address] [address] 01/16/2024 Sarah Mayer Plan Of Treatment Next Appt Details Provider Name:Sarah mullen, 10/11/2024 11:15:00 AM, [address] [place], [address], Progress Notes * Alex ESPINOZAOB: [birth year] (73 yo F)Acc No.[id number]:01/16/2024 Patient:?Laury Espinoza :1950???Age:73 Y???Sex:Female Address:[address], [place] [address] * true * Date:? Generated for Printi ng/Faxing/eTransmitting on:?08/06/2024 03:09 PM EST
--- OUTSIDE RECORDS SUMMARY | 2024-08-06 15:10 | XMS_ITS | Patient Health Record ---
Author Organization [facility] Address [address] [facility] [place] [address] Care Team Providers Care Metal Ceiling Hanger Name Role Phone Sabino PARKER, Anny Dominique Primary Care Provider Un available Sarah Mayer Unavailable [phone] Allergies No Known Allergies Reason For Referral No Information Medications Medication SIG (Take, Route, Frequency, Duration) [...] ast year? No Points 0 Interpretation Negative Problems Problem Type SNOMED Code ICD Code Onset Dates Problem Status W/U Status Risk Notes Problem Acquired hammer toe of right foot (6713899647428454) Other hammer toe(s) (acquired), right foot (M20.41) Active confirmed Problem Localized, primary osteoarthritis of the ankle and/or foot (405591413) Arthritis of joint of lesser toe, right (M19.071) Active confirmed Vital Signs Blood pressure diastolic 62 mm Hg 07/12/2024 Height 5ft 5in in 07/12/2024 Blood pressure systolic 128 mm Hg 07/12/2024 Weight 280 lbs 07/12/2024 BMI 46.59 kg/m2 07/12/2024 Encounters Encounter Location Date Provider Diagnosis [address] [address] 04/12/2024 Sarah Mayer Other hammer toe(s) (acquired), right foot M20.41 ; Metatarsalgia, left foot M77.42 ; Arthritis of joint of lesser toe, right M19.071 ; Onychomycosis B35.1 ; Pain in left toe(s) M79.675 ; Pain in left foot M79.672 and Pain in left ankle and joints of left foot M25.[address] [address] 07/12/2024 Sarah Mayer Other hammer toe(s) (acquired), right foot M20.41 ; Onychomycosis B35.1 ; Pain in left toe(s) M79.675 and Pain in left foot M79.[address] [address] 01/04/2024 Sarah Mayer [address] [address] 01/16/2024 Sarah Mayer Assessments Encounter Date Diagnosis (ICD Code) Assessment Notes Treatment Notes Treatment Clinical Notes Section Notes 04/12/2024 Metatarsalgia, left foot (ICD-10 - M77.42) 04/12/2024 Other hammer toe(s) (acquired), right foot (ICD-10 - M20.41) 07/12/2024 Other hammer toe(s) (acquired), right foot (ICD-10 - M20.41) 07/12/2024 Onychomycosis (ICD-10 - B35.1) 04/12/2024 Arthritis of joint of lesser toe, right (ICD-10 - M19.071) 07/12/2024 Pain in left toe(s) (ICD-10 - M79.675) 07/12/2024 Pain in left foot (ICD-10 - M79.672) 04/12/2024 Onychomycosis (ICD-10 - B35.1) 04/12/2024 Pain in left toe(s) (ICD-10 - M79.675) 04/12/2024 Pain in left foot (ICD-10 - M79.672) 04/12/2024 Pain in left ankle and joints of left foot (ICD-10 - M25.572) Plan Of Treatment Next Appt Details Provider Name:Sarah Cherie mullen, 10/11/2024 11:15:00 AM, [address] [place] [address], [address], Insurance Providers Payer Name Payer Address Payer Phone Subscriber Number Group Number Insured Name Patient Relationship to Insured Coverage Start Date Coverage End Date [employer] Medicare [id number] [address] [address] [place] [address] [phone] [id number] Laury Espinoza Self - patient is the insured Medical (General) History Medical History History ICD Code Anxiety Arthritis asthma Back,Hip,and Knee pain Broken bones Cataracts Depression Psychiatric disorder Reflux ( GERD) Measles Mumps Chicken pox Joint implants/screws Surgical History Surgery Date(Month/Year) left hip replacement 06/26/2018 hip revision, left 11/03/2020 Back Surgery - Lower Spine 06/11/25
--- OUTSIDE RECORDS SUMMARY | 2024-08-06 15:10 | XMS_ITS | Patient Health Record ---
Author Organization [facility] Physician Katlyn coronado Billing Info Address [address] [place], [place] [address] Care Team Providers Care Auto Emissions Technician Name Role Phone MICHELLE BARRIOS Unavailable [phone] Allergies Allergen (clinical drug ingredient) Drug/Non Drug Allergy documented on EMR Reaction Allergy Type Onset Date Status Pollen Pollen Unknown Allergy Active Reason For Referral No Information Medications Medication SIG (Take, Route, Frequency, Duration) Notes Start Date End Date Status Lexapro 20 MG 1 tablet Orally Once a day for 30 day(s) Active Advair HFA 45-21 MCG/ACT 2 puffs Inhalat ion Twice a day Active Flonase Allergy Relief 50 MCG/ACT 1 spray in each nostril Nasally Once a day for 30 day(s) Active Prilosec 10 MG as directed Orally Active Plan Of Treatment No Information Insurance Providers Payer Name Payer Address Payer Phone Subscriber Number Group Number Insured Name Patient Relationship to Insured Coverage Start Date Coverage End Date [facility] NON HMO [address] [address] [facility] [place] [phone] [id number] Yvonne Espinoza Self - patient is the insured 0 0 Medical (General) History Medical History History ICD Code depression anxiety asthma allergies Surgical History Surgery Date(Month/Year) hip replacement with revision in 2020 du e to infection 2018
== END 2024-08-06 14:12 | disposition home or self-care (01) ==
LOC: HO.MAMMO 14:11
PROVIDERS: PCP Internal Medicine; Visit Provider Internal Medicine
DX: Z13.820 Encounter for screening for osteoporosis (principal); Z78.0 Asymptomatic menopausal state
CPT/HCPCS: 77080

== ENCOUNTER → 2024-08-06 14:30 | Outpatient (BNV) | payer MEDICARE, SELFPAY | PROVIDERS: PCP Internal Medicine; Visit Provider Radiology Diagnostic Radiology | DX: E28.39 Other primary ovarian failure (principal) | CPT/HCPCS: 77080 ==

== ENCOUNTER 2024-08-07 10:23 | Outpatient (AMB) | payer MEDICARE, SELFPAY ==
--- NOTE | 2024-08-07 10:24 | A.OFFVIS_ITS ---
Intake Visit Reasons: Bilateral knee pains Intake Note: Yvonne is a 74 year old female who presents with complaints of bilateral knee pains. She describes her pains as sharp in nature. She has had cortisone injections in the past which gave her no relief. She has also had Durolane viscosupplementation injections which gave her good relief. She has tried Tylenol and anti-inflammatory medicines which gave her minimal relief. She has also done physical therapy which aggravated her pain. At this point her bilateral knee pains are interfering with her activities of daily living and her ability to sleep well through the night. She wishes to hold off on surgery if at all possible. Allergies chocolate Allergy (Mild, Verified 08/07/24 10:24) Gastrointestinal Upset egg Allergy (Mild, Verified 08/07/24 10:24) Diarrhea Medication List - Last Reconciled 08/07/24 by Abraham Hogue MD acetaminophen ER 650 mg PO Q12H albuterol sulfate 90 mcg/actuation (Ventolin HFA) 2 puffs inhalation Q6H PRN ascorbic acid (vitamin C) (Vitamin C) 1,000 mg PO BID calcium carbonate-vitamin D3 600 mg-5 mcg (200 unit) 1 tab PO DAILY cholecalciferol (vitamin D3) 25 mcg PO DAILY cranberry conc-ascorbic acid 4,200-20 mg 1 cap PO DAILY cyanocobalamin (vitamin B-12) (Vitamin B-12) 1,000 mcg PO DAILY escitalopram oxalate 40 mg (2 x 20 mg) PO QAM 3 months fluticasone propionate 50 mcg/actuation (Flonase Allergy Relief) 2 sprays intranasal DAILY 3 months glucosamine-chondroitin 500-400 mg 1 cap PO DAILY loratadine (Claritin) 10 mg PO QAM magnesium oxide 300 mg PO DAILY multivitamin 1 tab PO DAILY omega-3 fatty acids 1,000 mg PO DAILY omeprazole 20 mg PO QAM Symbicort 160-4.5 mcg/actuation (budesonide-formoterol) 1 inh inhalation BID 3 months NS vitamin E (dl, acetate) 450 mg PO BID PFSH Medical History (Updated 07/01/24 @ 00:41 by Anny Gallo MD) History of adenomatous polyp of colon Peptic ulcer Balance problem Concussion Asthma Low back pain Osteoarthritis Hypersomnia Cataracts, both eyes BK on CPAP Bilateral knee pain Allergic rhinitis Anxiety and depression Hyperlipidemia GERD (gastroesophageal reflux disease) History of fracture of left ankle Surgical History Hx of bilateral cataract extraction History of esophagogastroduodenoscopy (EGD) H/O colonoscopy Status post total hip replacement, left Family History Father Colon cancer Mother Hypertension Sister Breast CA Social History Housing: [facility] Are you a primary care management coordinator to a significant other at home: No Do you presently have visiting nurse or other home services: No Comment: advised to remove prior to surgery Patient Tobacco Use Status: Former Tobacco user Tobacco use type: Cigarette Years Smoked: 2 e-Cigarette/Vaping Use: Never Used Second Hand Smoke Exposure: No Current occupational status: retired Cognitive needs: No Hearing needs: No Vision needs: Yes Physical Exam Const Other: Well-nourished well-developed very friendly female awake alert and oriented x3 in no acute distress Extrem Other: Bilateral lower extremity examination shows good capillary refill, no skin lesions noted, normal sensation light touch Bilateral knee examination shows minimal effusions, palpable crepitus with range of motion, pain with range of motion, no instability Results Reviewed Results Reviewed: X-rays of the patient's bilateral knees taken previously show joint space narrowing, subchondral sclerosis, no acute bony abnormalities Assessment & Plan Assessment & Plan (1) Osteoarthritis of right knee: Code(s): M17.11 - Unilateral primary osteoarthritis, right knee Category: Medical (2) Osteoarthritis of left knee: Code(s): M17.12 - Unilateral primary osteoarthritis, left knee Category: Medical Plan Ms. Espinoza presents with bilateral knee pains due to osteoarthritis. I had a lengthy discussion with the patient regarding the treatment options. She wishes to hold off on surgery if at all possible. I agree with this plan. She has not gotten good relief from cortisone injections in the past. Thus, I will see whether or not her insurance company will cover a another Durolane viscosupplementation injection for both of her knees. I will see her back once the injections are available. Feel free to call me at any time should questions regarding her orthopedic management arise. I spent 22 minutes in reviewing the patient's records and imaging studies, seeing the patient and documenting in the medical record. Coding Level of Care Code Est Pt Level 3 (80086) Complex EM visit Add On G2211 Diagnoses Osteoarthritis of right knee M17.11 Osteoarthritis of left knee M17.12
--- OUTSIDE RECORDS SUMMARY | 2024-08-07 12:27 | XMS_ITS | Patient Health Record ---
Author Organization [facility] Address [address] [facility] [place] [address] Care Team Providers Care Palliative Medicine Physician Name Role Phone Sabino PARKER, Anny Dominique Primary Care Provider Un available Sarah Mayer Unavailable [phone] Allergies No Known Allergies Reason For Referral [...] Problem Acquired hammer toe of right foot ([id number]) Other hammer toe(s) (acquired), right foot (M20.41) Active confirmed Problem Localized, primary osteoarthritis of the ankle and/or foot (291329546) Arthritis of joint of lesser toe, right (M19.071) Active confirmed Vital Signs Blood pressure diastolic 62 mm Hg 07/12/2024 Height 5ft 5in in 07/12/2024 Blood pressure systolic 128 mm Hg 07/12/2024 Weight 280 lbs 07/12/2024 BMI 46.59 kg/m2 07/12/2024 Encounters Encounter Location Date Provider Diagnosis [address] [address] 04/12/2024 Sarah Mayer Other hammer toe(s) (acquired), right foot M20.41 ; Metatarsalgia, left foot M77.42 ; Arthritis of joint of lesser toe, right M19.071 ; Onychomycosis B35.1 ; Pain in left toe(s) M79.675 ; Pain in left foot M79.672 and Pain in left ankle and joints of left foot M25.[address] [address] 07/12/2024 Sarah Mayer Other hammer toe(s) (acquired), right foot M20.41 ; Onychomycosis B35.1 ; Pain in left toe(s) M79.675 and Pain in left foot M79.[address] [address] 01/04/2024 Sarah Mayer [address] [address] 01/16/2024 Sarah Mayer Assessments Encounter Date Diagnosis [...] Provider Name:Sarah Cherie mullen, 10/11/2024 11:15:00 AM, [address] [place] [address], [phone], Insurance Providers Payer Name Payer Address Payer Phone Subscriber Number Group Number Insured Name Patient Relationship to Insured Coverage Start Date Coverage End Date [employer] Medicare [id number] [address] [address] [place] [phone] [id number] Laury Espinoza Self - patient is the insured Medical (General) History Medical History History ICD Code Anxiety Arthritis asthma Back,Hip,and Knee pain Broken bones Cataracts Depression Psychiatric disorder Reflux ( GERD) Measles Mumps Chicken pox Joint implants/screws Surgical History Surgery Date(Month/Year) left hip replacement 06/26/2018 hip revision, left 11/03/2020 Back Surgery - Lower Spine 06/11/25
--- OUTSIDE RECORDS SUMMARY | 2024-08-07 12:27 | XMS_ITS ---
Author Organization [facility] Address [address] [facility] [address] Care Team Providers Care Formulator Name Role Phone Sabino PARKER, Anny Dominique Primary Care Provider Un available Sarah Mayer Unavailable [phone] Allergies No Known Allergies REASON FOR VISIT [...] Problem Acquired hammer toe of right foot ([id number]) Other hammer toe(s) (acquired), right foot (M20.41) Active confirmed Problem Localized, primary osteoarthritis of the ankle and/or foot (547893535) Arthritis of joint of lesser toe, right (M19.071) Active confirmed Vital Signs Height 5 ft 5 in in 04/12/2024 Weight 270 lbs 04/12/2024 BMI 44.93 kg/m2 04/12/2024 Blood pressure systolic 124 mm Hg 04/12/20 24 Blood pressure diastolic 80 mm Hg 024 Encounters Encounter Location Date Provider Diagnosis [facility] [address] [address] 04/12/2024 Sarah Mayer Other hammer toe(s) (acquired), [...] Reason: Provider Name:Sarah mullen, 10/11/2024 11:15:00 AM, [address] [place] [address], [address], Procedure Notes * Category Sub-Category Detail Notes [...] of a nail nipper and/or dremel-type grinder set up operator external, to a more viable healthy nail plate or bed tissue 6-10. Silver nitrate used for any petechial bleeding as necessary. Definitive antifungal treatment options have been reviewed and discussed with the patient. The patient chooses, no pharmaceutical tx - 03578 Progress Notes * Alex ESPINOZAOB: [birth year] (74 yo F)Acc No.[id number]:04/12/2024 Progress Notes Patient:?Laury Espinoza Provider:?Sarah Mayer DPM :1950???Age:74 Y???Sex:Female D ate:04/12/2024 Address:[address] [place] [address] , [place], [facility] Pcp:Didi Pedro Subjective: * Chief Complaints: * [...] of a nail nipper and/or dremel-type grinder set up operator external, to a more viable healthy nail plate or bed tissue 6-10. Silver nitrate used for any petechial bleeding as necessary. Definitive antifungal treatment options have been reviewed and discussed with the patient. The patient chooses, no pharmaceutical tx - 51270.? * Procedure Codes:?16623 DEBRI DE NAIL, 6 OR MORE * [...] Mayer, DPM Date:?10/2023 Generated for Sarah rodgers/Brittani/Mireya on:?08/07/2024 12:26 PM EST History and Physical Notes * [...]
--- OUTSIDE RECORDS SUMMARY | 2024-08-07 12:27 | XMS_ITS ---
Author Organization [facility] Address [address] [place] [address] Care Team Providers Care Free Lance Artist Name Role Phone Sabino PARKER, Anny Dominique Primary Care Provider Un available Sarah Mayer Unavailable [phone] REASON FOR VISIT HAT SPRAYER PPWK Entered Encounters Encounter Location Date Provider Diagnosis [address] [address] 01/16/2024 Sarah Mayer Plan Of Treatment Next Appt Details Provider Name:Sarah mullen, 10/11/2024 11:15:00 AM, [address] [place], [address], Progress Notes * Alex ESPINOZAOB: [birth year] (73 yo F)Acc No.[id number]:01/16/2024 Patient:?Laury Espinoza :1950???Age:73 Y???Sex:Female Address:[address], [place] [address] * true * Date:? Generated for Printi ng/Faxing/eTransmitting on:?08/07/2024 12:27 PM EST
--- OUTSIDE RECORDS SUMMARY | 2024-08-07 12:27 | XMS_ITS ---
Author Organization [facility] Address [address] [place] [address] Care Team Providers Care Trimmer Loader Name Role Phone Sabino PARKER, Anny Dominique Primary Care Provider Un available Sarah Mayer Unavailable [phone] Allergies No Known Allergies REASON FOR VISIT [...] 025 Encounters Encounter Location Date Provider Diagnosis [facility] [address] [place] [address] 07/12/2024 Sarah Mayer Other hammer toe(s) (acquired), [...] Reason: Provider Name:Sarah mullen, 10/11/2024 11:15:00 AM, [address] [place] [address], [address], Procedure Notes * Category Sub-Category Detail Notes [...] use of a nail nipper and/or dremel-type terrazzo grinder, to a more viable healthy nail plate [...] to maintain effectiveness in symptomatic relief - 64575 Progress Notes * Alex ESPINOZAOB: [birth year] (74 yo F)Acc No.[id number]:07/12/2024 Progress Note Patient:?Laury ESPINOZA Provider:?Sarah Mayer DPM :1950???Age:74 Y???Sex:Female D ate:07/12/2024 Address:[facility] [address], [place] Pcp:Didi Pedro Subjective: * Chief Complaints: * [...] use of a nail nipper and/or dremel-type terrazzo grinder, to a more viable healthy nail plate [...] to maintain effectiveness in symptomatic relief - 64656.? * Procedure Codes:?60002 DEBRI DE NAIL, 6 OR MORE * [...] Mayer DPM Date:?09/2024 Generated for Sarah rodgers/Brittani/Mireya on:?08/07/2024 12:26 PM [...]
== END 2024-08-07 10:39 | disposition home or self-care (01) ==
PROVIDERS: PCP Internal Medicine; Visit Provider Orthopaedic Surgery
DX: M17.0 Bilateral primary osteoarthritis of knee (principal)
CPT/HCPCS: 99213; G2211

== ENCOUNTER → 2024-08-07 10:23 | Outpatient (BNVA) | payer MEDICARE, SELFPAY | PROVIDERS: PCP Internal Medicine; Visit Provider Orthopaedic Surgery | DX: M17.0 Bilateral primary osteoarthritis of knee (principal) | CPT/HCPCS: 99212 ==

== ENCOUNTER → 2024-08-16 11:24 | Outpatient (BNVA) | payer MEDICARE, SELFPAY | PROVIDERS: PCP Internal Medicine; Visit Provider Physician Assistant | DX: M48.062 Spinal stenosis, lumbar region with neurogenic claudication (principal); Z47.89 Encounter for other orthopedic aftercare; Z98.890 Other specified postprocedural states | CPT/HCPCS: 99212 ==

== ENCOUNTER → 2024-08-16 11:24 | Outpatient (AMB) | payer MEDICARE, SELFPAY | END | disposition home or self-care (01) | PROVIDERS: PCP Internal Medicine; Visit Provider Physician Assistant | CPT/HCPCS: 99024 ==

== ENCOUNTER 2024-09-25 10:30 | Outpatient (AMB) | payer MEDICARE, SELFPAY ==
--- NOTE | 2024-09-25 10:33 | MHC.OFFVIS ---
Vital Signs 09/25/24 10:34 Height 5 ft 5 in Weight 243 lb BMI 40.4 BP 130/80 Blood Pressure Location Rt brachial Position Sitting Pulse 63 Pulse Source Pulse Oximeter Pulse Oximetry (%) 96 Oxygen Delivery Method Room Air Intake Visit Reasons: Follow up Intake Note: Patient presents for follow up BK. Compliance report in chart. System Operation Superintendent Required: No Accompanied by: Self / Same As Patient Allergies chocolate Allergy (Mild, Verified 09/25/24 10:34) Gastrointestinal Upset egg Allergy (Mild, Verified 09/25/24 10:34) Diarrhea HPI Comments Details: 74 year old female referred to us by PCP for Sleep Evaluation. She has restful sleep, now sleeps through the night and wakes up feeling more refreshed with her new nasal mask. She is active with all her ADLs. She uses a cane to ambulate, and had 1 fall, she lost her balance and fell backwards but no injuries. She has a history of vertigo in the past, declines PT today. She denies RLS and morning headaches. She has GERD and takes a PPI daily. She has allergies and takes Claritin as needed. She has some word recall difficulties and is concerned about her memory. She is losing weight and more mindful of her diet, declines Weight management at this time. Her mood is okay, she has bouts of depression and it slows her down. Recently lost her nephew, declines counseling today. Her diet is improving, she has lost 30lbs, she knows sweets are to her weakness, so she avoids them, denies constipation or diarrhea. She is involved with her community and social engagements. She cleans her mask, changes out her filters, and requests supplies as needed. BK Compliance Report 06/19/2024 - 04/2025 Avg. use >4 hours 69/90 days 77% Avg. total use 6 hours and 18min Press median 10.7cmH20 Leaks max 34.2 AHI 5.1 PFSH Medical History History of adenomatous polyp of colon Peptic ulcer Balance problem Concussion Asthma Low back pain Osteoarthritis Hypersomnia Cataracts, both eyes BK on CPAP Bilateral knee pain Allergic rhinitis Anxiety and depression Hyperlipidemia GERD (gastroesophageal reflux disease) History of fracture of left ankle Surgical History History of back surgery Hx of bilateral cataract extraction History of esophagogastroduodenoscopy (EGD) H/O colonoscopy Status post total hip replacement, left Family History Father Colon cancer Mother Hypertension Sister Breast CA Social History Housing: [facility] Are you a primary critical care unit nurse to a significant other at home: No Do you presently have visiting nurse or other home services: No Comment: advised to remove prior to surgery Patient Tobacco Use Status: Former Tobacco user Tobacco use type: Cigarette Years Smoked: 2 e-Cigarette/Vaping Use: Never Used Second Hand Smoke Exposure: No Current occupational status: retired Cognitive needs: No Hearing needs: No Vision needs: Yes Physical Exam Vital Signs: Last Vital Signs Pulse 63 09/25/24 10:34 BP 130/80 09/25/24 10:34 Pulse Ox 96 09/25/24 10:34 Oxygen Delivery Method Room Air 09/25/24 10:34 BMI result Body Mass Index 40.4 Const General: cooperative, comfortable and no acute distress Nutritional Appearance: obese (BMI 40) Orientation/consciousness: patient oriented x3 Neck Neck: Yes full ROM Resp Effort & Inspection: normal respiratory effort and able to speak in complete sentences Neuro General: patient oriented x3 and moves all extremities Cranial nerves: Yes Facial sensation intact/muscles of mastication intact, Yes Normal accommodation reflex present, Yes Bilaterally intact EOM present, Yes Nystagmus not present, Yes Normal facial strength present, Yes Midline tongue present, Yes Ability to bilaterally rotate head present and Yes Ability to bilaterally elevate shoulders present Motor exam (neuro): 5/5 motor strength present throughout Deep tendon reflexes (DTR's): Right triceps reflex intensity grade: 2+, Left triceps reflex intensity grade: 2+, Rt Biceps (C5, C6): 2+, Left biceps reflex intensity grade: 2+, Right brachioradialis reflex intensity grade: 2+, Left brachioradialis reflex intensity grade: 2+, Right patellar reflex intensity grade: 2+ and Left patellar reflex intensity grade: 2+ Coordination: [id number] test normal Psych Appearance: grossly normal Thought process: Normal thought process present Thought content: Normal thought content present Orientation What is the (year) (season) (date) (day) (month)?: year, season, date, day and month Where are we (state) (county) (town or city) (hospital) (floor)?: state, county, town or city and hospital/clinic Attention & Calculation (CHOOSE ONE) Ask pt to begin with 100 & count backward by 7. Stop after 5 repeats. If pt cannot ask them to spell the word WORLD backward.: 93, 86, 79, 72 and 65 Recall Ask patient to repeat the 3 items from question #3.: object 1, object 2 and object 3 Language Show patient a wristwatch & ask what it is. Repeat for pencil.: watch and pencil Ask the patient to repeat the phrase 'No ifs, ands, or buts' after you.: correct Ask the patient to 'take a piece of paper with their right hand' 'fold paper in half' 'place paper on floor': take paper in right hand, fold paper in half and place paper on floor Print the sentence 'CLOSE YOUR EYES' on a piece. If patient actually closes eyes then score.: followed written direction Give patient a blank piece of paper & ask to write a sentence. Score if it contains a noun & verb.: sentence contains subject and verb Score Score: 25 Results Reviewed Results Reviewed: BK Compliance Report 06/19/2024- 04/2025 >4 hours 69/90 days 77% Avg. total use 6 hours and 18min Press median 10.7cmH20 Leaks max 34.2 AHI 5.1 Assessment & Plan Assessment & Plan (1) Obesity: Code(s): E66.9 - Obesity, unspecified Category: Medical Qualifiers: Obesity type: unspecified obesity type Body mass index: BMI 45.0-49.9 Qualified Code(s): E66.813 - Obesity, class 3; E66.01 - Morbid (severe) obesity due to excess calories; Z68.42 - Body mass index [BMI] 45.0-49.9, adult (2) BK on CPAP: Code(s): G47.33 - Obstructive sleep apnea (adult) (pediatric) Category: Medical (3) Anxiety and depression: Code(s): F41.9 - Anxiety disorder, unspecified; F32.A - Depression, unspecified Category: Medical (4) GERD (gastroesophageal reflux disease): Code(s): K21.9 - Gastro-esophageal reflux disease without esophagitis Category: Medical Qualifiers: Esophagitis presence: without esophagitis Qualified Code(s): K21.9 - Gastro-esophageal reflux disease without esophagitis (5) Cognitive decline: Code(s): R41.89 - Other symptoms and signs involving cognitive functions and awareness Category: Medical Plan Fatigue F/U with labs for deficiencies Iron, Ferritin, TSH, MMA, Lipid, Homocysteine BK Sleep hygiene and compliance of CPAP Cognitive decline will monitor MMSE 25 F/U in 6 months Vertigo and balance difficulties will send for PT if patient is amenable in the future. Orders: Orders IRON PROFILE Today G47.9 - Sleep disorder, unspecified, R53.83 - Other fatigue Ferritin Today R41.89 - Other symptoms and signs involving cognitive functions and awareness TSH reflex Free T4 Today F09 - Unspecified mental disorder due to known physiological condition Methylmalonic Acid Today G47.9 - Sleep disorder, unspecified, R53.83 - Other fatigue Lipid Panel with Reflex Today E66.01 - Morbid (severe) obesity due to excess calories, E66.813 - Obesity, class 3, Z68.42 - Body mass index [BMI] 45.0-49.9, adult Homocysteine Today G47.9 - Sleep disorder, unspecified, R53.83 - Other fatigue Patient Instructions: Cognitive decline stay engaged with social activities, board games, optimize sleep, eliminate stressors, continue learning new tasks and doing puzzles, or playing a new instrument. Sleep hygiene is provided, sleep in a dark room temperatures should be below 68 degrees, no devices in bed, you may read a book. Balance and Gait, use the cane every time you are out walking. Vertigo will monitor Coding Level of Care Code Est Pt Level 4 (79284) Complex EM visit Add On G2211 Diagnoses Class 3 severe obesity with serious comorbidity and body mass index (BMI) of 45.0 to 49.9 in adult, unspecified obesity type E66.813; E66.01; Z68.42 Obesity type: unspecified obesity type Body mass index: BMI 45.0-49.9 BK on CPAP G47.33 Anxiety and depression F41.9; F32.A Gastroesophageal reflux disease without esophagitis K21.9 Esophagitis presence: without esophagitis Cognitive decline R41.89 Time Spent (min) 45 Comment Improved Sleep pattern
[2024-09-25 10:34] VITALS: BP 130/80; PULSE 63; O2SAT 96; BMI 40.4
--- OUTSIDE RECORDS SUMMARY | 2024-09-25 12:25 | XMS_ITS ---
Author Organization [facility] Address [address] [place] [address] Care Team Providers Care Vulcanizer Operator Name Role Phone Sabino PARKER, Anny Dominique Primary Care Provider Un available Sarah Mayer Unavailable [phone] Allergies No Known Allergies REASON FOR VISIT [...] 025 Encounters Encounter Location Date Provider Diagnosis [facility] [address] [place] [address] 07/12/2024 Sarah Mayer Other hammer toe(s) (acquired), [...] Reason: Provider Name:Sarah mullen, 10/11/2024 11:15:00 AM, [address] [place] [address], [address], Procedure Notes * Category Sub-Category Detail Notes [...] use of a nail nipper and/or dremel-type corn grinder, to a more viable healthy nail [...] to maintain effectiveness in symptomatic relief - 46113 Progress Notes * Alex ESPINOZAOB: [birth year] (74 yo F)Acc No.[id number]:07/12/2024 Progress Note Patient:?Laury ESPINOZA Provider:?Sarah Mayer DPM :1950???Age:74 Y???Sex:Female D ate:07/12/2024 Address:[facility] [address], [place], [place] Pcp:Didi Pedro Subjective: * Chief Complaints: * [...] use of a nail nipper and/or dremel-type corn grinder, to a more viable healthy nail [...] to maintain effectiveness in symptomatic relief - 83278.? * Procedure Codes:?53556 DEBRI DE NAIL, 6 OR MORE * [...] Mayer DPM Date:?09/2024 Generated for Sarah rodgers/Brittani/Mireya on:?09/25/2024 12:24 PM EDT History and Physical Notes * HPI (History [...]
--- OUTSIDE RECORDS SUMMARY | 2024-09-25 12:25 | XMS_ITS | Patient Health Record ---
Author Organization [facility] Address [address] [facility] [address] Care Team Providers Care Living Supervisor Name Role Phone Sabino PARKER, Anny Dominique Primary Care Provider Un available Sarah Mayer Unavailable [phone] Allergies No Known Allergies Reason For Referral [...] Problem Acquired hammer toe of right foot (4392519629432001) Other hammer toe(s) (acquired), right foot (M20.41) Active confirmed Problem Localized, primary osteoarthritis of the ankle and/or foot (477282976) Arthritis of joint of lesser toe, right (M19.071) Active confirmed Vital Signs Blood pressure diastolic 62 mm Hg 07/12/2024 Height 5ft 5in in 07/12/2024 Blood pressure systolic 128 mm Hg 07/12/2024 Weight 280 lbs 07/12/2024 BMI 46.59 kg/m2 07/12/2024 Encounters Encounter Location Date Provider Diagnosis [address] [address] 04/12/2024 Sarah Mayer Other hammer toe(s) (acquired), right foot M20.41 ; Metatarsalgia, left foot M77.42 ; Arthritis of joint of lesser toe, right M19.071 ; Onychomycosis B35.1 ; Pain in left toe(s) M79.675 ; Pain in left foot M79.672 and Pain in left ankle and joints of left foot M25.[address] [address] 07/12/2024 Sarah Mayer Other hammer toe(s) (acquired), right foot M20.41 ; Onychomycosis B35.1 ; Pain in left toe(s) M79.675 and Pain in left foot M79.[address] [address] 01/04/2024 Sarah Mayer [address] [address] 01/16/2024 Sarah Mayer Assessments Encounter Date Diagnosis [...] Provider Name:Sarah Cherie mullen, 10/11/2024 11:15:00 AM, [address] [place] [address], [address], Insurance Providers Payer Name Payer Address Payer Phone Subscriber Number Group Number Insured Name Patient Relationship to Insured Coverage Start Date Coverage End Date [employer] Medicare [id number] [address] [address] [place] [address] [id number] Laury Espinoza Self - patient is the insured Medical (General) History Medical History History ICD Code Anxiety Arthritis asthma Back,Hip,and Knee pain Broken bones Cataracts Depression Psychiatric disorder Reflux ( GERD) Measles Mumps Chicken pox Joint implants/screws Surgical History Surgery Date(Month/Year) left hip replacement 06/26/2018 hip revision, left 11/03/2020 Back Surgery - Lower Spine 06/11/25
--- OUTSIDE RECORDS SUMMARY | 2024-09-25 12:25 | XMS_ITS ---
Author Organization [facility] Address [address] [facility] [place] [address] Care Team Providers Care Teacher Name Role Phone Sabino PARKER, Anny Dominique Primary Care Provider Un available Sarah Mayer Unavailable [phone] Allergies No Known Allergies REASON FOR VISIT [...] Problem Acquired hammer toe of right foot (5500704120197319) Other hammer toe(s) (acquired), right foot (M20.41) Active confirmed Problem Localized, primary osteoarthritis of the ankle and/or foot (582761484) Arthritis of joint of lesser toe, right (M19.071) Active confirmed Vital Signs Height 5 ft 5 in in 04/12/2024 Weight 270 lbs 04/12/2024 BMI 44.93 kg/m2 04/12/2024 Blood pressure systolic 124 mm Hg 04/12/20 24 Blood pressure diastolic 80 mm Hg 024 Encounters Encounter Location Date Provider Diagnosis [facility] [address] [address] 04/12/2024 Sarah Mayer Other hammer toe(s) (acquired), [...] Provider Name:Sarah mullen, 10/11/2024 11:15:00 AM, [address] [place] [address], [address], Procedure Notes * Category Sub-Category Detail Notes Debride Nail 6-10 Nail debridement Performance o f this nail treatment by a nonprofessional would put this patients foot and overall health at risk. Therefore, nail debridement was performed extensively to reduce/remove overall nail length, girth, thickness, subungual debris, and necrotic tissue, by manual and/or electrical means through the use of a nail nipper and/or dremel-type coffee grinder, to a more viable healthy nail plate or bed tissue 6-10. Silver nitrate used for any petechial bleeding as necessary. Definitive antifungal treatment options have been reviewed and discussed with the patient. The patient chooses, no pharmaceutical tx - 42647 Progress Notes * Alex ESPINOZAOB: [birth year] (74 yo F)Acc No.[id number]:04/12/2024 Progress Notes Patient:?Laury Espinoza Provider:?Sarah Mayer DPM :1950???Age:74 Y???Sex:Female D ate:04/12/2024 Address:[address] [place] [address] , [place], [facility] Pcp:Didi Pedro Subjective: * Chief Complaints: * [...] use of a nail nipper and/or dremel-type coffee grinder, to a more viable healthy nail plate or bed tissue 6-10. Silver nitrate used for any petechial bleeding as necessary. Definitive antifungal treatment options have been reviewed and discussed with the patient. The patient chooses, no pharmaceutical tx - 41194.? * Procedure Codes:?40034 DEBRI DE NAIL, 6 OR MORE * [...] Mayer, DPM Date:?10/2023 Generated for Sarah rodgers/Brittani/Mireya on:?09/25/2024 12:24 PM [...] and t [facility] DP PULSES (B): 3/, B/L PT PULSES (B): 3/4, B/L CAPILLARY [...]
--- OUTSIDE RECORDS SUMMARY | 2024-09-25 12:25 | XMS_ITS ---
Author Organization [facility] Address [address] [place] [address] Care Team Providers Care Equipment Associate Name Role Phone Sabino PARKER, Anny Dominique Primary Care Provider Un available Sarah Mayer Unavailable [phone] REASON FOR VISIT CLIENT SERVICE MANAGER PPWK Entered Encounters Encounter Location Date Provider Diagnosis [address] [address] 01/16/2024 Sarah Mayer Plan Of Treatment Next Appt Details Provider Name:Sarah mullen, 10/11/2024 11:15:00 AM, [address] [place], [address], Progress Notes * Alex ESPINOZAOB: [birth year] (73 yo F)Acc No.[id number]:01/16/2024 Patient:?Laury Espinoza :1950???Age:73 Y???Sex:Female Address:[address], [place] [address] * true * Date:? Generated for Printi ng/Faxing/eTransmitting on:?09/25/2024 12:25 PM EDT
--- OUTSIDE RECORDS SUMMARY | 2024-09-25 12:25 | XMS_ITS | Patient Health Record ---
Author Organization [facility] Physician Katlyn coronado Billing Info Address [address] [place], [place] [address] Care Team Providers Care Bat Boy/Girl Name Role Phone MICHELLE BARRIOS Unavailable [phone] Allergies Allergen (clinical drug ingredient) Drug/Non Drug [...] Insured Coverage Start Date Coverage End Date [facility] NON HMO [address] [address] [facility] [place] [id number] Yvonne Espinoza Self - patient is the insured 0 0 Medical (General) History Medical History History ICD Code depression anxiety asthma allergies Surgical History Surgery Date(Month/Year) hip replacement with revision in 2020 du e to infection 2018
== END 2024-09-25 11:39 | disposition home or self-care (01) ==
LOC: HO.HSMS 10:31
PROVIDERS: PCP Internal Medicine; Visit Provider Physician Assistant Medical
DX: E66.813 Obesity, class 3 (principal); E66.01 Morbid (severe) obesity due to excess calories; Z68.42 Body mass index [BMI] 45.0-49.9, adult; G47.33 Obstructive sleep apnea (adult) (pediatric); F41.9 Anxiety disorder, unspecified; F32.A Depression, unspecified; K21.9 Gastro-esophageal reflux disease without esophagitis; R41.89 Other symptoms and signs involving cognitive functions and awareness
CPT/HCPCS: 99214; G2211

== ENCOUNTER → 2024-09-25 10:30 | Outpatient (BNVA) | payer MEDICARE, SELFPAY | PROVIDERS: PCP Internal Medicine; Visit Provider Physician Assistant Medical | DX: G47.33 Obstructive sleep apnea (adult) (pediatric) (principal); E66.813 Obesity, class 3; F41.9 Anxiety disorder, unspecified; F32.A Depression, unspecified; K21.9 Gastro-esophageal reflux disease without esophagitis; R41.89 Other symptoms and signs involving cognitive functions and awareness; Z68.41 Body mass index [BMI] 40.0-44.9, adult | CPT/HCPCS: 99212 ==

== ENCOUNTER 2024-11-05 11:14 | Outpatient (AMB) | payer MEDICARE, SELFPAY ==
--- NOTE | 2024-11-05 11:19 | A.OFFVIS_ITS ---
Vital Signs 11/05/24 11:23 Height 5 ft 5 in Weight 243 lb BMI 40.4 Intake Visit Reasons: Inj-JACK knee Durolane (sign financial estimate) Intake Note: Yvonne is a 74 year old female who presents with complaints of bilateral knee pains. She describes her pains as sharp in nature. She has failed the last 3 months of conservative treatment. She has done physical therapy exercises which aggravated her pain. She has also tried Tylenol and anti-inflammatory medicines which gave her minimal relief. She wishes to hold off on surgery if at all possible. Allergies chocolate Allergy (Mild, Verified 11/05/24 11:24) Gastrointestinal Upset egg Allergy (Mild, Verified 11/05/24 11:24) Diarrhea Medication List - Last Reconciled 11/05/24 by Abraham Hogue MD acetaminophen ER 650 mg PO Q12H albuterol sulfate 90 mcg/actuation (Ventolin HFA) 2 puffs inhalation Q6H PRN ascorbic acid (vitamin C) (Vitamin C) 1,000 mg PO BID calcium carbonate-vitamin D3 600 mg-5 mcg (200 unit) 1 tab PO DAILY cholecalciferol (vitamin D3) 25 mcg PO DAILY cranberry conc-ascorbic acid 4,200-20 mg 1 cap PO DAILY cyanocobalamin (vitamin B-12) (Vitamin B-12) 1,000 mcg PO DAILY escitalopram oxalate 40 mg (2 x 20 mg) PO QAM 3 months fluticasone propionate 50 mcg/actuation (Flonase Allergy Relief) 2 sprays intranasal DAILY 3 months glucosamine-chondroitin 500-400 mg 1 cap PO DAILY loratadine (Claritin) 10 mg PO QAM magnesium oxide 300 mg PO DAILY multivitamin 1 tab PO DAILY omega-3 fatty acids 1,000 mg PO DAILY omeprazole 20 mg PO QAM Symbicort 160-4.5 mcg/actuation (budesonide-formoterol) 1 inh inhalation BID 3 months NS vitamin E (dl, acetate) 450 mg PO BID PFSH Medical History (Updated 09/25/24 @ 11:54 by Diane Hanna PA-C) History of adenomatous polyp of colon Peptic ulcer Balance problem Concussion Asthma Low back pain Osteoarthritis Hypersomnia Cataracts, both eyes BK on CPAP Bilateral knee pain Allergic rhinitis Anxiety and depression Hyperlipidemia GERD (gastroesophageal reflux disease) History of fracture of left ankle Surgical History History of back surgery Hx of bilateral cataract extraction History of esophagogastroduodenoscopy (EGD) H/O colonoscopy Status post total hip replacement, left Family History Father Colon cancer Mother Hypertension Sister Breast CA Social History [facility] Are you a primary hearing care practitioner to a significant other at home: No Do you presently have visiting nurse or other home services: No Comment: advised to remove prior to surgery Patient Tobacco Use Status: Former Tobacco user Tobacco use type: Cigarette Years Smoked: 2 e-Cigarette/Vaping Use: Never Used Second Hand Smoke Exposure: No Current occupational status: retired Cognitive needs: No Hearing needs: No Vision needs: Yes Physical Exam Vital Signs: BMI result Body Mass Index 40.4 Const Other: Well-nourished well-developed very friendly female awake alert and oriented x3 in no acute distress Extrem Other: Bilateral lower extremity examination shows good capillary refill, no skin lesions noted, normal sensation light touch Bilateral knee examination shows minimal effusions, palpable crepitus with range of motion, pain with range of motion, no instability Office Procedures AMB Joint Injection/Aspiration Joint Injection/Aspiration Primary Site: left knee Prep: site was prepped using aseptic technique Injected: 60 mg of (Durolane viscosupplementation) and 1% plain lidocaine Procedure: The patient tolerated the procedure well Coding 25580 - Large joint Procedure code (CPT) selection complete AMB Joint Injection/Aspiration Joint Injection/Aspiration Primary Site: right knee Prep: site was prepped using aseptic technique Injected: 60 mg of (Durolane viscosupplementation) and 1% plain lidocaine Procedure: The patient tolerated the procedure well Coding 85803 - Large joint Procedure code (CPT) selection complete Results Reviewed Results Reviewed: X-rays of the patient's bilateral knees taken previously show joint space narrowing, subchondral sclerosis, no acute bony abnormalities Assessment & Plan Assessment & Plan (1) Osteoarthritis of left knee: Code(s): M17.12 - Unilateral primary osteoarthritis, left knee Category: Medical (2) Osteoarthritis of right knee: Code(s): M17.11 - Unilateral primary osteoarthritis, right knee Category: Medical Plan Ms. Espinoza presents with bilateral knee pains due to osteoarthritis. The risks and benefits of bilateral knee Durolane viscosupplementation injections were discussed at length with the patient. The patient wished to proceed. She tolerated the injections well. She will continue with her home exercise program. She will contact me prior to her follow-up appointment in 3 months should any questions or concerns arise. Feel free to call me at any time should questions regarding her orthopedic management arise. I spent 20 minutes in reviewing the patient's records and imaging studies, seeing the patient and documenting in the medical record. Orders: Orders AMB Joint Injection/Aspiration Today M17.12 - Unilateral primary osteoarthritis, left knee AMB Joint Injection/Aspiration Today M17.11 - Unilateral primary osteoarthritis, right knee Coding Level of Care Code Est Pt Level 3 (66901) Complex EM visit Add On G2211 Diagnoses Osteoarthritis of left knee M17.12 Osteoarthritis of right knee M17.11 CPT Codes Coding - 53111 Large joint: 15988 - Large joint ([id number]) Coding - 86423 Large joint: 38792 - Large joint ([id number])
[2024-11-05 11:23] VITALS: BMI 40.4
--- OUTSIDE RECORDS SUMMARY | 2024-11-05 13:14 | XMS_ITS ---
Author [facility] Address [address] [facility] [place] [address] Care Team Providers Care Manager Oracle Database Name Role Phone Sabino PARKER, Anny Dominique Primary Care Provider Un available Sarah Mayer Unavailable [phone] Allergies No Known Allergies REASON FOR VISIT [...] Problem Acquired hammer toe of right foot (6914437032829803) Other hammer toe(s) (acquired), right foot (M20.41) Active confirmed Problem Localized, primary osteoarthritis of the ankle and/or foot (120219926) Arthritis of joint of lesser toe, right (M19.071) Active confirmed Vital Signs Height 5 ft 5 in in 04/12/2024 Weight 270 lbs 04/12/2024 BMI 44.93 kg/m2 04/12/2024 Blood pressure systolic 124 mm Hg 04/12/20 24 Blood pressure diastolic 80 mm Hg 024 Encounters Encounter Location Date Provider Diagnosis [facility] [address] [address] 04/12/2024 Sarah Mayer Other hammer toe(s) (acquired), [...] Up: 2 Months, Reason: Provider Name:Sarah mullen, 02/12/2025 11:15:00 AM, [address] [place] [address], [phone], Procedure Notes * Category Sub-Category Detail Notes Debride Nail 6-10 Nail debridement Performance o f this nail treatment by a nonprofessional would put this patients foot and overall health at risk. Therefore, nail debridement was performed extensively to reduce/remove overall nail length, girth, thickness, subungual debris, and necrotic tissue, by manual and/or electrical means through the use of a nail nipper and/or dremel-type crystal flat grinder, to a more viable healthy nail plate or bed tissue 6-10. Silver nitrate used for any petechial bleeding as necessary. Definitive antifungal treatment options have been reviewed and discussed with the patient. The patient chooses, no pharmaceutical tx - 95749 Progress Notes * Alex ESPINOZAOB: [birth year] (74 yo F)Acc No.[id number]:04/12/2024 Progress Notes Patient:?Laury Espinoza Provider:?Sarah Mayer DPM :1950???Age:74 Y???Sex:Female D ate:04/12/2024 Address:[address] [place] [address] , [place], [facility] Pcp:Didi Pedro Subjective: * Chief Complaints: * [...] use of a nail nipper and/or dremel-type crystal flat grinder, to a more viable healthy nail plate or bed tissue 6-10. Silver nitrate used for any petechial bleeding as necessary. Definitive antifungal treatment options have been reviewed and discussed with the patient. The patient chooses, no pharmaceutical tx - 51756.? * Procedure Codes:?48856 DEBRI DE NAIL, 6 OR MORE * [...] * Sign off status: Completed true * Provider:Nancy Mayer, DPM Date:?10/2023 Generated for Sarah rodgers/Brittani/Mireya on:?11/05/2024 01:14 PM EDT History and Physical Notes * [...] excrescences. The interspaces are clear, B/L Orthopedic FOOTWEAR EVALUATION: shoe gear p roperties exacerbate patients foot/toe deformity DIGITAL DEFORMITIES: Digital [...]
--- OUTSIDE RECORDS SUMMARY | 2024-11-05 13:14 | XMS_ITS | Patient Health Record ---
Author Organization [facility] Physician Katlyn coronado Billing Info Address [address] [place], [place] [id number] Care Team Providers Care Supervisor Scenic Arts Name Role Phone MICHELLE BARRIOS Unavailable [phone] Allergies Allergen (clinical drug ingredient) Drug/Non Drug [...] Insured Coverage Start Date Coverage End Date [facility] NON HMO [address] [address] [facility] [place] [id number] Yvonne Espinoza Self - patient is the insured 0 0 Medical (General) History Medical History History ICD Code depression anxiety asthma allergies Surgical History Surgery Date(Month/Year) hip replacement with revision in 2020 du e to infection 2018
--- OUTSIDE RECORDS SUMMARY | 2024-11-05 13:14 | XMS_ITS ---
Author Organization [facility] Address [address] [place] [address] Care Team Providers Care Chain Builder Loom Control Name Role Phone Sabino PARKER, Anny Dominique Primary Care Provider Un available Sarah Mayer Unavailable [phone] Allergies No Known Allergies REASON FOR VISIT Painful nail(s) aggravated by shoes causing difficulty standing/walking Medications Medication SIG (Take, Route, Frequency, Duration) Notes Start Date End Date Status Lexapro Active Flonase Active Omeprazole Active Advair HFA Active Loratadine Active Social History Tobacco Use: Social History Observation Description Date Details (start date - stop date) Never Smoker NA - NA Tobacco use other than smoking: Question Answer Notes Are you an other tobacco user? No Tobacco Control (Standard) Question Answer Notes Tobacco use: Nonsmoker Additional Findings: Tobacco non-user Ex-cigaret te smoker Vital Signs Height 5ft5in in 10/11/2024 Weight 237 lbs 10/11/2024 BMI 39.43 kg/m2 10/11/2024 Blood pressure systolic 128 mm Hg 10/12/19 25 Blood pressure diastolic 64 mm Hg 025 Encounters Encounter Location Date Provider Diagnosis [facility] [address] [place] [address] 10/11/2024 Sarah Irvingsebas Onychomycosis B35.1 ; Pain in left toe(s) M79.675 and Pain in left foot M79.672 Assessments Encounter Date Diagnosis (ICD Code) Assessment Notes Treatment Notes Treatment Clinical Notes Section Notes 10/11/2024 Onychomycosis (ICD-10 - B35.1) 10/11/2024 Pain in left toe(s) (ICD-10 - M79.675) 10/11/2024 Pain in left foot (ICD-10 - M79.672) Plan Of Treatment Next Appt Details Follow Up: 2 Months, Reason: Provider Name:Sarah mullen, 02/12/2025 11:15:00 AM, [address] [place] [address], [phone], Procedure Notes * Category Sub-Category Detail Notes [...] of a nail nipper and/or dremel-type crystal grinder, to a more viable healthy nail [...] to maintain effectiveness in symptomatic relief - 62746 Progress Notes * CHEOAlexOB: [birth year] (74 yo F)Acc No.[id number]:10/11/2024 Progress Note Patient:?CHEO, [place] Provider:?Sarah Mayer DPM :1950???Age:74 Y???Sex:Female D ate:10/11/2024 Address:[address] [place] [address] [id number] Pcp:Didi Pedro Subjective: * Chief Complaints: * ???Painful nail(s) aggravate d by shoes causing difficulty standing/walking * HPI: ???Painful Nails:?Pt States Last PCP Visit:?Date:?06/10/2024 * ROS:?General/Constitutional:?Nausea?denies, denies.?Vomiting?denies, denies.?Hunger Thirst?denies, denies.?Loss appetite?denies, denies.?Chills?denies, denies.?Fatigue?denies, denies.?Fever?denies, denies.?Night Sweats denies, denies.?Unexplained weight loss?denies, denies.?Unexplained weight gain?denies, denies.?HEENTM:?Dentures?denies, denies.?Dizziness?denies, denies.?Glasses/contacts?admits, admits.?Retinopathy?denies, denies.?Blurred/double vision?denies, denies.?TMJ?denies, denies.?Discharge/drainage?denies, denies.?Implants?denies, denies.?Sore throat?denies, denies.?Dental implants?denies, denies.?Hard of hearing ?denies, denies.?Difficulty chewing/swallowing/speaking?denies, denies.?Nose bleeds?denies, denies.?Sore mouth?denies, denies.?Respiratory:?On Oxygen?denies, denies.?Pneumonia/pleurisy?denies, denies.?Bronchitis?denies, denies.?Emphysema?denies, denies.?Coughing?denies, denies.?Cough blood?denies, denies.?Shortness of breath?denies, denies.?Wheezing?denies, denies.?Cardiovascular:?Pacemaker?denies, denies.?MVP?denies, denies.?WPW?denies, denies.?CHF?denies, denies.?Heart attack?denies, denies.?Septal defect?denies, denies.?Rapid beat?denies, denies.?Chest pain ?denies, denies.?Atrial Fib.?denies, denies.?Murmur/Palpitations?denies, denies.?Gastrointestinal:?Hemorrhoids?denies, denies.?Stomach/Abdominal pain?denies, denies.?Dark blood stool?denies, denies.?Irritable bowel ?denies, denies.?Constipation?denies, denies.?Diarrhea?denies, denies.?Hematology:?Swelling?denies, denies.?Clots?denies, denies.?Varicose Veins?denies, denies.?Bruising?denies, denies.?Bleeding problem?denies, denies.?Genitourinary:?Blood urine?denies, denies.?Frequent/Painfu/urination/bladder control?admits, admits.?Kidney stones?denies, denies.?Infection (UTI)?denies, denies.?Nephropathy?denies, denies.?sex trans dis (STD)?denies, denies.?Prostate?denies, denies.?Musculoskeletal:?Hammertoes?denies, denies.?Bunions?denies, denies.?Back Pain?admits, admits.?Muscle Cramps/ Resting?denies, denies.?Muscle cramps / walking?denies, denies.?Generalized aches and pains?admits, admits.?Weakness?denies, denies.?Integ.:?Hirsch?denies, denies.?Scars?denies, denies.?Corns/calluses?admits, admits.?Ingrown nails?denies, denies.?Painful nails?admits,admits.?Open Sores?denies, denies.?Rashes?denies, denies.?Neurologic:?Difficulty sleeping?denies, denies.?Brain disorder?denies, denies.?Numbness?denies, denies.?Balance trouble?admits, admits.?Confusion?denies, denies.?Fainting/blackouts?denies, denies.?Tingling?admits, admits.?Tremors?denies, denies.? * Medical History:? * Surgical History:?left hip r eplacement 06/26/2018hip revision, left 11/03/2020ack Surgery - Lower Spine 06/11/25 * Hospitalization/Major Diagno stic Procedure:?Denies Past Hospitalization * Family History:?Mother: dece ased, arthritis, foot problems, high blood pressure.?Father: .? * Social History:?Tobacco Use:?Tobacco use other than smoking?Are you an other tobacco user??No ?Tobacco Control (Standard)?Tobacco use:?Nonsmoker ?Additional Findings: Tobacco non-user?Ex-cigarette smoker ???Miscellaneous:?Caffeine: no. ?Children: yes, 1. ?Exercise: yes, walking, exercise/dancing. ?Marital status: . 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 * Medications:?TakingAdvair HF A Loratadine Flonase Omeprazole Lexapro Medication List reviewed and reconciled with the patientTaking Advair HFA Taking Loratadine Taking Flonase Taking Omeprazole Taking Lexapro Medication List reviewed and reconciled with the patient * Allergies:?N.K.D.A.yes[Aller gies Verified] Objective: * Vitals:?Ht: 5ft5in, Wt:237, BMI:39.43, Shoe size: 9.5M, BP:128/64mm Hg, Ht-cm: 165.1 cm, Wt-k.5 kg. * Examination: ???Orthopedic: ?MUSCLE STRENGTH:?5/5 all groups in a symmetrical fashion, B/L.?DIGITAL DEFORMITIES:?Digital contracture, PIPJ, 2-5 B/L, incompl-reducible with WB, or to push-up test, no over, nor underlapping.?Nails: ?NAILS are:?Elongated, overgrown, dystrophic, lytic, greater than 3mm thick, discolored and friable with crumbly malodorous subungual debris, with pain on palpation, TA, T1, T2, T3, T4, T5, T6, T7, T8, T9.?Neurological: ?SENSORY:?Neurological exam reveals intact sensorium, pain sensation [...] interspaces are clear, B/L.? Assessment: * Assessment: 1.?Pain in left toe(s) - M79 .675???2.?Onychomycosis - B35.1 (Primary)???3.?Pain in left foot - M79.672??? Plan: * [...] of a nail nipper and/or dremel-type crystal grinder, to a more viable healthy nail [...] to maintain effectiveness in symptomatic relief - 22666.? * Procedure Codes:?12920 DEBRI DE NAIL, 6 OR MORE * Follow Up:?2 Months * Images: * Sign off status: Completed true * Provider:?Sarah Mayer DPM Date:?10/2024 Generated for Sarah rodgers/Brittani/Mireya on:?11/05/2024 01:14 PM EDT History and Physical Notes * HPI (History of Present Illness) Category Sub-Category Detail Notes Category Not es Painful Nails Pt States Last PCP Visit: [...] T2, T3, T4, T5, T6, T7, T8, T9
--- OUTSIDE RECORDS SUMMARY | 2024-11-05 13:14 | XMS_ITS ---
Author Organization [facility] Address [address] [place] [address] Care Team Providers Care Hose Seamer Name Role Phone Sabino PARKER, Anny Dominique Primary Care Provider Un available Sarah Mayer Unavailable [phone] Allergies No Known Allergies REASON FOR VISIT [...] 025 Encounters Encounter Location Date Provider Diagnosis [facility] [address] [place] [address] 07/12/2024 Sarah Mayer Other hammer toe(s) (acquired), [...] Reason: Provider Name:Sarah mullen, 02/12/2025 11:15:00 AM, [address] [place] [address], [phone], Procedure Notes * Category Sub-Category Detail Notes [...] nipper and/or dremel-type grinder set up operator surface, to a more viable healthy nail plate [...] to maintain effectiveness in symptomatic relief - 41523 Progress Notes * Alex ESPINOZAOB: [birth year] (74 yo F)Acc No.[id number]:07/12/2024 Progress Note Patient:?Laury ESPINOZA Provider:?Sarah Mayer DPM :1950???Age:74 Y???Sex:Female D ate:07/12/2024 Address:[facility] [address], [place], [place] Pcp:Didi Pedro Subjective: * Chief Complaints: * [...] nipper and/or dremel-type grinder set up operator surface, to a more viable healthy nail plate [...] to maintain effectiveness in symptomatic relief - 42699.? * Procedure Codes:?56629 DEBRI DE NAIL, 6 OR MORE * [...] Mayer DPM Date:?09/2024 Generated for Sarah rodgers/Brittani/Mireya on:?11/05/2024 01:13 PM EDT History and Physical Notes * [...]
--- OUTSIDE RECORDS SUMMARY | 2024-11-05 13:14 | XMS_ITS | Patient Health Record ---
Author Organization [facility] Address [address] [facility] [place] [address] Care Team Providers Care Oven Equipment Repairer Name Role Phone Sabino PARKER, Anny Dominique Primary Care Provider Un available Sarah Mayer Unavailable [phone] Allergies No Known Allergies Reason For Referral [...] Problem Acquired hammer toe of right foot (9742137557964150) Other hammer toe(s) (acquired), right foot (M20.41) Active confirmed Problem Localized, primary osteoarthritis of the ankle and/or foot (441606721) Arthritis of joint of lesser toe, right (M19.071) Active confirmed Vital Signs Blood pressure diastolic 64 mm Hg 10/11/2024 Height 5ft5in in 10/11/2024 Blood pressure systolic 128 mm Hg 10/11/2024 Weight 237 lbs 10/11/2024 BMI 39.43 kg/m2 10/11/2024 Encounters Encounter Location Date Provider Diagnosis [address] [address] 04/12/2024 Sarah Mayer Other hammer toe(s) (acquired), right foot M20.41 ; Metatarsalgia, left foot M77.42 ; Arthritis of joint of lesser toe, right M19.071 ; Onychomycosis B35.1 ; Pain in left toe(s) M79.675 ; Pain in left foot M79.672 and Pain in left ankle and joints of left foot M25.[address] [address] 07/12/2024 Sarah Mayer Other hammer toe(s) (acquired), right foot M20.41 ; Onychomycosis B35.1 ; Pain in left toe(s) M79.675 and Pain in left foot M79.[address] [address] 10/11/2024 Sarah Mayer Onychomycosis B35.1 ; Pain in left toe(s) M79.675 and Pain in left foot M79.[address] [address] 01/04/2024 Sarah Mayer [address] [address] 01/16/2024 Sarah Mayer Assessments Encounter Date Diagnosis (ICD Code) Assessment Notes Treatment Notes Treatment Clinical Notes Section Notes 04/12/2024 Metatarsalgia, left foot (ICD-10 - M77.42) 04/12/2024 Other hammer toe(s) (acquired), right foot (ICD-10 - M20.41) 07/12/2024 Other hammer toe(s) (acquired), right foot (ICD-10 - M20.41) 07/12/2024 Onychomycosis (ICD-10 - B35.1) 10/11/2024 Pain in left toe(s) (ICD-10 - M79.675) 10/11/2024 Onychomycosis (ICD-10 - B35.1) 10/11/2024 Pain in left foot (ICD-10 - M79.672) 04/12/2024 Arthritis of joint of lesser toe, [...] Treatment Next Appt Details Provider Name:Sarah mullen, 02/12/2025 11:15:00 AM, [address] [place] [address], [phone], Insurance Providers Payer Name Payer Address Payer Phone Subscriber Number Group Number Insured Name Patient Relationship to Insured Coverage Start Date Coverage End Date [facility] Medicare-309 [id number] [address] [address] [place] [address] [phone] [id number] Laury Espinoza Self - patient is the insured 4 Medical (General) History Medical History History ICD Code Anxiety Arthritis asthma Back,Hip,and Knee pain Broken bones Cataracts Depression Psychiatric disorder Reflux ( GERD) Measles Mumps Chicken pox Joint implants/screws Surgical History Surgery Date(Month/Year) left hip replacement 06/26/2018 hip revision, left 11/03/2020 Back Surgery - Lower Spine 06/11/25
== END 2024-11-05 11:41 | disposition home or self-care (01) ==
LOC: HO.HOS 11:15
PROVIDERS: PCP Internal Medicine; Visit Provider Orthopaedic Surgery
DX: M17.0 Bilateral primary osteoarthritis of knee (principal)
CPT/HCPCS: 20610; 99213

== ENCOUNTER → 2024-11-05 11:14 | Outpatient (BNVA) | payer MEDICARE, SELFPAY | PROVIDERS: PCP Internal Medicine; Visit Provider Orthopaedic Surgery | DX: M17.0 Bilateral primary osteoarthritis of knee (principal) | CPT/HCPCS: 20610; 99212; J2003; J7318 ==

== ENCOUNTER 2025-02-04 13:24 | Outpatient (AMB) | payer MEDICARE, SELFPAY ==
[2025-02-04 13:28] VITALS: BMI 40.4
--- NOTE | 2025-02-04 13:28 | MHC.OFFVIS ---
Vital Signs 02/04/25 13:28 Height 5 ft 5 in Weight 243 lb BMI 40.4 Intake Visit Reasons: Bilateral knee pains Intake Note: Yvonne is a 74 year old female who presents with complaints of bilateral knee pains. She describes her pains as sharp in nature. She has had cortisone injections in the past which gave her minimal relief. She has also had Durolane injections which gave her very good relief. She has failed the last 3 months of conservative treatment she has included Tylenol, anti-inflammatory medicines, a home exercise program and physical therapy exercises. She wishes to hold off on surgery if at all possible. Allergies chocolate Allergy (Mild, Verified 02/04/25 13:31) Gastrointestinal Upset egg Allergy (Mild, Verified 02/04/25 13:31) Diarrhea Medication List - Last Reconciled 02/04/25 by Abraham Hogue MD acetaminophen ER 650 mg PO Q12H albuterol sulfate 90 mcg/actuation (Ventolin HFA) 2 puffs inhalation Q6H PRN ascorbic acid (vitamin C) (Vitamin C) 1,000 mg PO BID calcium carbonate-vitamin D3 600 mg-5 mcg (200 unit) 1 tab PO DAILY cholecalciferol (vitamin D3) 25 mcg PO DAILY cranberry conc-ascorbic acid 4,200-20 mg 1 cap PO DAILY cyanocobalamin (vitamin B-12) (Vitamin B-12) 1,000 mcg PO DAILY escitalopram oxalate 40 mg (2 x 20 mg) PO QAM 3 months fluticasone propionate 50 mcg/actuation (Flonase Allergy Relief) 2 sprays intranasal DAILY 3 months glucosamine-chondroitin 500-400 mg 1 cap PO DAILY loratadine (Claritin) 10 mg PO QAM magnesium oxide 300 mg PO DAILY multivitamin 1 tab PO DAILY omega-3 fatty acids 1,000 mg PO DAILY omeprazole 20 mg PO QAM Symbicort 160-4.5 mcg/actuation (budesonide-formoterol) 1 inh inhalation BID 3 months NS vitamin E (dl, acetate) 450 mg PO BID PFSH Medical History (Updated 09/25/24 @ 11:54 by Diane Hanna PA-C) History of adenomatous polyp of colon Peptic ulcer Balance problem Concussion Asthma Low back pain Osteoarthritis Hypersomnia Cataracts, both eyes BK on CPAP Bilateral knee pain Allergic rhinitis Anxiety and depression Hyperlipidemia GERD (gastroesophageal reflux disease) History of fracture of left ankle Surgical History History of back surgery Hx of bilateral cataract extraction History of esophagogastroduodenoscopy (EGD) H/O colonoscopy Status post total hip replacement, left Family History Father Colon cancer Mother Hypertension Sister Breast CA Social History [facility] Are you a primary healthcare customer service to a significant other at home: No Do you presently have visiting nurse or other home services: No Comment: advised to remove prior to surgery Patient Tobacco Use Status: Former Tobacco user Tobacco use type: Cigarette Years Smoked: 2 e-Cigarette/Vaping Use: Never Used Second Hand Smoke Exposure: No Current occupational status: retired Cognitive needs: No Hearing needs: No Vision needs: Yes Physical Exam Vital Signs: BMI result Body Mass Index 40.4 Const Other: Well-nourished well-developed very friendly female awake alert and oriented x3 in no acute distress Extrem Other: Bilateral knee examination shows minimal effusions, palpable crepitus with range of motion, pain with range of motion, no instability Results Reviewed Results Reviewed: X-rays of the patient's bilateral knee show joint space narrowing, subchondral sclerosis, no acute bony abnormalities Assessment & Plan Assessment & Plan (1) Osteoarthritis of left knee: Code(s): M17.12 - Unilateral primary osteoarthritis, left knee Category: Medical (2) Osteoarthritis of right knee: Code(s): M17.11 - Unilateral primary osteoarthritis, right knee Category: Medical Plan Ms. Espinoza presents with bilateral knee pains due to osteoarthritis. I had a lengthy discussion with the patient regarding the treatment options. She wishes to hold off on surgery if at all possible. I agree with this plan. I will see if her insurance company will cover a another Durolane viscosupplementation injection for both of her knees. I will see her back once the injections are available. Feel free to call me at any time should questions regarding her orthopedic management arise. I spent 20 minutes in reviewing the patient's records and imaging studies, seeing the patient and documenting in the medical record. Coding Level of Care Code Est Pt Level 3 (72227) Complex EM visit Add On G2211 Diagnoses Osteoarthritis of left knee M17.12 Osteoarthritis of right knee M17.11
--- OUTSIDE RECORDS SUMMARY | 2025-02-04 14:17 | XMS_ITS | Patient Health Record ---
Author Organization [facility] Physician Katlyn coronado Billing Info Address [address] [place], [place] [address] Care Team Providers Care Fitting Room Supervisor Name Role Phone MICHELLE BARRIOS Unavailable [phone] Allergies Allergen (clinical drug ingredient) Drug/Non Drug [...] Start Date Coverage End Date [facility] NON HMO [address] [address] [facility] [place]FFILI[place] [id number] Yvonne Espinoza Self - patient is the insured 0 0 Medical (General) History Medical History History ICD Code depression anxiety asthma allergies Surgical History Surgery Date(Month/Year) hip replacement with revision in 2020 du e to infection 2018
--- OUTSIDE RECORDS SUMMARY | 2025-02-04 14:17 | XMS_ITS | Patient Health Record ---
Author Organization [facility] Address [address] [place] [address] Care Team Providers Care Electrical Drafter Name Role Phone Sabino PARKER, Anny Dominique Primary Care Provider Un available Sarah Mayer Unavailable [phone] Allergies No Known Allergies Reason For Referral [...] Problem Acquired hammer toe of right foot ([id number]) Other hammer toe(s) (acquired), right foot (M20.41) Active confirmed Problem Arthritis of joint of lesser toe, right (M19.071) Active confirmed Vital Signs Blood pressure diastolic 64 mm Hg 10/11/2024 Height 5ft5in in 10/11/2024 Blood pressure systolic 128 mm Hg 10/11/2024 Weight 237 lbs 10/11/2024 BMI 39.43 kg/m2 10/11/2024 Encounters Encounter Location Date Provider Diagnosis [address] [address] 04/12/2024 Sarah Perica Other hammer toe(s) (acquired), right foot M20.41 ; Metatarsalgia, left foot M77.42 ; Arthritis of joint of lesser toe, right M19.071 ; Onychomycosis B35.1 ; Pain in left toe(s) M79.675 ; Pain in left foot M79.672 and Pain in left ankle and joints of left foot M25.[address] [address] 07/12/2024 Sarah Perica Other hammer toe(s) (acquired), right foot M20.41 ; Onychomycosis B35.1 ; Pain in left toe(s) M79.675 and Pain in left foot M79.[address] [address] 10/11/2024 Sarah Perica Onychomycosis B35.1 ; Pain in left toe(s) [...] Details Provider Name:Sarah mullen, 02/12/2025 11:15:00 AM, [address] [place] [address], [id number], Insurance Providers Payer Name Payer Address Payer Phone Subscriber Number Group Number Insured Name Patient Relationship to Insured Coverage Start Date Coverage End Date [employer] Medicare-[id number] [address] [place] [address] [id number] Laury Espinoza Self - patient is [...]
== END 2025-02-04 13:43 | disposition home or self-care (01) ==
LOC: HO.HOS 13:25
PROVIDERS: PCP Internal Medicine; Visit Provider Orthopaedic Surgery
DX: M17.0 Bilateral primary osteoarthritis of knee (principal)
CPT/HCPCS: 99213; G2211

== ENCOUNTER → 2025-02-04 13:24 | Outpatient (BNVA) | payer MEDICARE, SELFPAY | PROVIDERS: PCP Internal Medicine; Visit Provider Orthopaedic Surgery | DX: M17.0 Bilateral primary osteoarthritis of knee (principal) | CPT/HCPCS: 99212 ==

== ENCOUNTER 2025-03-31 10:54 | Outpatient (AMB) | payer MEDICARE, SELFPAY ==
[2025-03-31 10:57] VITALS: BP 126/72; PULSE 67; O2SAT 95; BMI 33.7
--- NOTE | 2025-03-31 10:57 | A.OFFVIS_ITS ---
Vital Signs 03/31/25 10:57 Height 5 ft 5 in Weight 202 lb 8 oz BMI 33.7 BP 126/72 Blood Pressure Location Rt brachial Position Sitting Pulse 67 Pulse Source Pulse Oximeter Pulse Oximetry (%) 95 Oxygen Delivery Method Room Air Intake Visit Reasons: 6 mo follow up Intake Note: Patient presents follow up BK. Compliance in chart(82/90days, >=4hrs-90%, Average Usage-6hr 39min, Med Pressure-9.9, Med Leaks-1.9, AHI-4.2) Accompanied by: Self / Same As Patient Allergies chocolate Allergy (Mild, Verified 03/31/25 11:02) Gastrointestinal Upset egg Allergy (Mild, Verified 03/31/25 11:02) Diarrhea HPI Comments Details: 75 year old female presents for a f/u of BK. BK Compliance Report 12/18/2024 - 03/19/2025 Avg. use >4 hours 82/90 days, >4 hours 90% Avg. total use 6 hours and 39 min Med press 9.9cmH20 Leaks 1.9cmH20 AHI is 4.2/ hr She washes her mask, rinses hoses, changes her filters, fills reservoir with water. She has restful sleep, now sleeps through the night and wakes up feeling more refreshed. She is active with all her ADLs and uses a cane to ambulate. She denies falls. She has a history of vertigo and morning headaches though improved now. She denies RLS symptoms. She has GERD and takes a PPI daily. She has allergies and takes Claritin as needed. Her memory is stable, has word recall difficulties, thinks its due to normal aging and it does not bother her. Weight is managed, she lost 70lbs over the course of a few years. Her mood is okay, she has bouts of depression and takes lexapro daily. Her diet has improved, she has decreased sweets in her diet. She is involved with her community and social engagements. [facility] Medical History History of adenomatous polyp of colon Peptic ulcer Balance problem Concussion Asthma Low back pain Osteoarthritis Hypersomnia Cataracts, both eyes BK on CPAP Bilateral knee pain Allergic rhinitis Anxiety and depression Hyperlipidemia GERD (gastroesophageal reflux disease) History of fracture of left ankle Surgical History History of back surgery Hx of bilateral cataract extraction History of esophagogastroduodenoscopy (EGD) H/O colonoscopy Status post total hip replacement, left Family History Father Colon cancer Mother Hypertension Sister Breast CA Social History [facility] Are you a primary health care coordinator to a significant other at home: No Do you presently have visiting nurse or other home services: No Comment: advised to remove prior to surgery Patient Tobacco Use Status: Former Tobacco user Tobacco use type: Cigarette Years Smoked: 2 e-Cigarette/Vaping Use: Never Used Second Hand Smoke Exposure: No Current occupational status: retired Cognitive needs: No Hearing needs: No Vision needs: Yes Physical Exam Vital Signs: Last Vital Signs Pulse 67 03/31/25 10:57 BP 126/72 03/31/25 10:57 Pulse Ox 95 03/31/25 10:57 Oxygen Delivery Method Room Air 03/31/25 10:57 BMI result Body Mass Index 33.7 Const General: cooperative, comfortable and no acute distress Nutritional Appearance: obese (BMI 40) Orientation/consciousness: patient oriented x3 Neck Neck: Yes full ROM Resp Effort & Inspection: normal respiratory effort and able to speak in complete sentences Neuro General: patient oriented x3 and moves all extremities Cranial nerves: Yes Facial sensation intact/muscles of mastication intact, Yes Normal accommodation reflex present, Yes Bilaterally intact EOM present, Yes Nystagmus not present, Yes Normal facial strength present, Yes Midline tongue present, Yes Ability to bilaterally rotate head present and Yes Ability to bilaterally elevate shoulders present Motor exam (neuro): 5/5 motor strength present throughout Psych Appearance: grossly normal Mental Status: mental status grossly normal Thought process: Normal thought process present Thought content: Normal thought content present Results Reviewed Results Reviewed: BK Compliance Report 12/18/2024 - 03/19/2025 Avg. use >4 hours 82/90 days, >4 hours 90% Avg. total use 6 hours and 39 min Med press 9.9cmH20 Leaks 1.9cmH20 AHI is 4.2/ hr She washes her mask, rinses hoses, changes her filters, fills reservoir with water. Assessment & Plan Assessment & Plan (1) BK on CPAP: Code(s): G47.33 - Obstructive sleep apnea (adult) (pediatric) Category: Medical (2) Obesity: Code(s): E66.9 - Obesity, unspecified Category: Medical Qualifiers: Body mass index: BMI 45.0-49.9 Obesity type: unspecified obesity type Qualified Code(s): E66.813 - Obesity, class 3; E66.01 - Morbid (severe) obesity due to excess calories; Z68.42 - Body mass index [BMI] 45.0-49.9, adult (3) Anxiety and depression: Code(s): F41.9 - Anxiety disorder, unspecified; F32.A - Depression, unspecified Category: Medical (4) GERD (gastroesophageal reflux disease): Code(s): K21.9 - Gastro-esophageal reflux disease without esophagitis Category: Medical Qualifiers: Esophagitis presence: without esophagitis Qualified Code(s): K21.9 - Gastro-esophageal reflux disease without esophagitis (5) Cognitive decline: Code(s): R41.89 - Other symptoms and signs involving cognitive functions and awareness Category: Medical (6) Fatigue due to sleep pattern disturbance: Code(s): R53.83 - Other fatigue; G47.9 - Sleep disorder, unspecified Category: Medical Plan BK on cpap therapy and compliant, reviewed compliance with pt today. She notices improvement in her sleep. Cognitive decline will monitor MMSE 25, will reassess at next visit. Labs reviewed with pt today. Continue taking B12 and vitamin D. F/U in 6 months Patient Instructions: Sleep Hygiene provided: set a scheduled bedtime and wake time to help regulate the circadian rhythm and balance the release of pituitary hormones. Sleep in a dark room, temperatures below 68 degrees, and no devices n bed. Limit caffeinated products 6 hours prior to bed, and limit fluids 2-4 hours prior to bed. Gentle night yoga, diffusing essential oils, and playing soft music can be relaxing. Coding Level of Care Code Est Pt Level 4 (09007) Diagnoses BK on CPAP G47.33 Class 3 severe obesity with serious comorbidity and body mass index (BMI) of 45.0 to 49.9 in adult, unspecified obesity type E66.813; E66.01; Z68.42 Body mass index: BMI 45.0-49.9 Obesity type: unspecified obesity type Anxiety and depression F41.9; F32.A Gastroesophageal reflux disease without esophagitis K21.9 Esophagitis presence: without esophagitis Cognitive decline R41.89 Fatigue due to sleep pattern disturbance R53.83; G47.9
--- OUTSIDE RECORDS SUMMARY | 2025-03-31 13:32 | XMS_ITS | Patient Health Record ---
Author Organization [facility] Physician Katlyn coronado Billing Info Address [address] [place], [place] [address] Care Team Providers Care Manufacturing Shift Supervisor Name Role Phone MICHELLE BARRIOS Unavailable [phone] Allergies Allergen (clinical drug ingredient) Drug/Non Drug [...] Insured Coverage Start Date Coverage End Date [facility] NON HMO [address] [address] [facility] AFFILIATE [place], [place] [id number] Yvonne Espinoza Self - patient is the insured 0 0 Medical (General) History Medical History History ICD Code depression anxiety asthma allergies Surgical History Surgery Date(Month/Year) hip replacement with revision in 2020 du e to infection 2018
--- OUTSIDE RECORDS SUMMARY | 2025-03-31 13:32 | XMS_ITS | Patient Health Record ---
Author Organization [facility] Address [address] [facility] [place] [address] Care Team Providers Care Ruby Engineer Name Role Phone Sabino PARKER, Anny Dominique Primary Care Provider Un available Aristidessebas Sarah Unavailable [phone] Allergies No Known Allergies Reason For Referral No Information Medications Medication SIG (Take, Route, Frequency, Duration) Notes Start Date End Date Status Advair HFA Active Loratadine Active Flonase Active Omeprazole Active Lexapro Active Escitalopram Oxalate 20 MG Oral; Duration: 90 Days Active Immunizations Vaccine Route Administration Date Status Comme nts Influenza Unknown 03/10/2024 Administered Social History Tobacco Use: Social History Observation [...] Problem Acquired hammer toe of right foot ([id number]) Other hammer toe(s) (acquired), right foot (M20.41) Active confirmed Problem Localized, primary osteoarthritis of the ankle and/or foot (844982129) Arthritis of joint of lesser toe, right (M19.071) Active confirmed Vital Signs Blood pressure diastolic 65 mm Hg 02/12/2025 Height 5ft5in in 02/12/2025 Blood pressure systolic 127 mm Hg 02/12/2025 Weight 205 lbs 02/12/2025 BMI 34.11 kg/m2 02/12/2025 Encounters Encounter Location Date Provider Diagnosis [address] [address] 04/12/2024 Sarah Aristidesa Other hammer toe(s) (acquired), right foot M20.41 ; Metatarsalgia, left foot M77.42 ; Arthritis of joint of lesser toe, right M19.071 ; Onychomycosis B35.1 ; Pain in left toe(s) M79.675 ; Pain in left foot M79.672 and Pain in left ankle and joints of left foot M25.[address] [address] 07/12/2024 Sarah Irvinga Other hammer toe(s) (acquired), right foot M20.41 ; Onychomycosis B35.1 ; Pain in left toe(s) M79.675 and Pain in left foot M79.[address] [address] 10/11/2024 Sarah Perica Onychomycosis B35.1 ; Pain in left toe(s) M79.675 and Pain in left foot M79.[address] [address] 02/12/2025 Sarah Perica Onychomycosis B35.1 ; Pain in [...] - M79.675) 10/11/2024 Onychomycosis (ICD-10 - B35.1) 02/12/2025 Onychomycosis (ICD-10 - B35.1) 02/12/2025 Pain in left toe(s) (ICD-10 - M79.675) 10/11/2024 Pain in left foot (ICD-10 - M79.672) 04/12/2024 Arthritis of joint of lesser toe, right (ICD-10 - M19.071) 07/12/2024 Pain in left toe(s) (ICD-10 - M79.675) 07/12/2024 Pain in left foot (ICD-10 - M79.672) 04/12/2024 Onychomycosis (ICD-10 - B35.1) 02/12/2025 Pain in left foot (ICD-10 - M79.672) 04/12/2024 Pain in left toe(s) (ICD-10 - M79.675) 04/12/2024 Pain in left foot (ICD-10 - M79.672) 04/12/2024 Pain in left ankle and joints of left foot (ICD-10 - M25.572) Plan Of Treatment Next Appt Details Provider Name:Sarah mullen, 06/25/2025 11:00:00 AM, [address] [place], [address], Insurance Providers Payer Name Payer Address Payer Phone Subscriber Number Group Number Insured Name Patient Relationship to Insured Coverage Start Date Coverage End Date [facility] Medicare-309 [address] [address] [place] [address] [id number] Yvonne Espinoza Self - patient is the insured Medical (General) History Medical History History ICD Code Anxiety Arthritis asthma Back,Hip,and Knee pain Broken bones Cataracts Depression Psychiatric disorder Reflux ( GERD) Measles Mumps Chicken pox Joint implants/screws Surgical History Surgery Date(Month/Year) left hip replacement 06/26/2018 hip revision, left 11/03/2020 Back Surgery - Lower Spine 06/11/25
== END 2025-03-31 13:09 | disposition home or self-care (01) ==
LOC: HO.HSMS 10:54
PROVIDERS: PCP Internal Medicine; Visit Provider Physician Assistant Medical
DX: G47.33 Obstructive sleep apnea (adult) (pediatric) (principal); E66.813 Obesity, class 3; E66.01 Morbid (severe) obesity due to excess calories; Z68.42 Body mass index [BMI] 45.0-49.9, adult; F41.9 Anxiety disorder, unspecified; F32.A Depression, unspecified; K21.9 Gastro-esophageal reflux disease without esophagitis; R41.89 Other symptoms and signs involving cognitive functions and awareness; R53.83 Other fatigue; G47.9 Sleep disorder, unspecified
CPT/HCPCS: 99214

== ENCOUNTER → 2025-03-31 10:54 | Outpatient (BNVA) | payer MEDICARE, SELFPAY | PROVIDERS: PCP Internal Medicine; Visit Provider Physician Assistant Medical | DX: G47.33 Obstructive sleep apnea (adult) (pediatric) (principal); G47.9 Sleep disorder, unspecified; E66.813 Obesity, class 3; E66.01 Morbid (severe) obesity due to excess calories; F41.9 Anxiety disorder, unspecified; F32.A Depression, unspecified; K21.9 Gastro-esophageal reflux disease without esophagitis; R41.89 Other symptoms and signs involving cognitive functions and awareness; R53.83 Other fatigue; Z68.33 Body mass index [BMI] 33.0-33.9, adult | CPT/HCPCS: 99212 ==

== ENCOUNTER 2025-05-13 11:23 | Outpatient (AMB) | payer MEDICARE, SELFPAY ==
--- NOTE | 2025-05-13 11:30 | MHC.OFFVIS ---
Vital Signs 05/13/25 11:36 Height 5 ft 5 in Weight 200 lb BMI 33.3 Intake Visit Reasons: INJ- B/L Knee Durolane Injection Intake Note: Kirstin is a 75 year old female who presents with complaints of bilateral knee pains. She describes her pains as sharp in nature. She has had cortisone injections in the past which gave her minimal relief. She has also had Durolane injections which gave her good relief. She has failed the last 3 months of conservative treatment. She wishes to hold off on surgery if at all possible. Allergies chocolate Allergy (Mild, Verified 05/13/25 11:32) Gastrointestinal Upset egg Allergy (Mild, Verified 05/13/25 11:32) Diarrhea Medication List - Last Reconciled 05/13/25 by Abraham Hogue MD acetaminophen ER 650 mg PO Q12H albuterol sulfate 90 mcg/actuation (Ventolin HFA) 2 puffs inhalation Q6H PRN ascorbic acid (vitamin C) (Vitamin C) 1,000 mg PO BID calcium carbonate-vitamin D3 600 mg-5 mcg (200 unit) 1 tab PO DAILY cholecalciferol (vitamin D3) 25 mcg PO DAILY cranberry conc-ascorbic acid 4,200-20 mg 1 cap PO DAILY cyanocobalamin (vitamin B-12) (Vitamin B-12) 1,000 mcg PO DAILY escitalopram oxalate 40 mg (2 x 20 mg) PO QAM 3 months fluticasone propionate 50 mcg/actuation (Flonase Allergy Relief) 2 sprays intranasal DAILY 3 months glucosamine-chondroitin 500-400 mg 1 cap PO DAILY loratadine (Claritin) 10 mg PO QAM magnesium oxide 300 mg PO DAILY multivitamin 1 tab PO DAILY omega-3 fatty acids 1,000 mg PO DAILY omeprazole 20 mg PO QAM Symbicort 160-4.5 mcg/actuation (budesonide-formoterol) 1 inh inhalation BID 3 months NS vitamin E (dl, acetate) 450 mg PO BID PFSH Medical History History of adenomatous polyp of colon Peptic ulcer Balance problem Concussion Asthma Low back pain Osteoarthritis Hypersomnia Cataracts, both eyes BK on CPAP Bilateral knee pain Allergic rhinitis Anxiety and depression Hyperlipidemia GERD (gastroesophageal reflux disease) History of fracture of left ankle Surgical History History of back surgery Hx of bilateral cataract extraction History of esophagogastroduodenoscopy (EGD) H/O colonoscopy Status post total hip replacement, left Family History Father Colon cancer Mother Hypertension Sister Breast CA Social History Housing: Condominium Are you a primary residential caregiver to a significant other at home: No Do you presently have visiting nurse or other home services: No Comment: advised to remove prior to surgery Patient Tobacco Use Status: Former Tobacco user Tobacco use type: Cigarette Years Smoked: 2 e-Cigarette/Vaping Use: Never Used Second Hand Smoke Exposure: No Current occupational status: retired Cognitive needs: No Hearing needs: No Vision needs: Yes Physical Exam Vital Signs: BMI result Body Mass Index 33.3 Const Other: Well-nourished well-developed very friendly female awake alert and oriented x3 in no acute distress Extrem Other: Bilateral knee examination shows minimal effusions, palpable crepitus with range of motion, pain with range of motion, no instability Office Procedures AMB Joint Injection/Aspiration Joint Injection/Aspiration Primary Site: right knee Prep: site was prepped using aseptic technique Injected: 60 mg of (Durolane viscosupplementation), with 4 mL of and 1% plain lidocaine Procedure: The patient tolerated the procedure well Coding 25947 - Large joint Procedure code (CPT) selection complete AMB Joint Injection/Aspiration Joint Injection/Aspiration Primary Site: left knee Prep: site was prepped using aseptic technique Injected: 60 mg of (Durolane viscosupplementation), with 4 mL of and 1% plain lidocaine Procedure: The patient tolerated the procedure well Coding 54544 - Large joint Procedure code (CPT) selection complete Results Reviewed Results Reviewed: X-rays of the patient's bilateral knees taken previously show joint space narrowing, subchondral sclerosis, no acute bony abnormalities Assessment & Plan Assessment & Plan (1) Osteoarthritis of left knee: Code(s): M17.12 - Unilateral primary osteoarthritis, left knee Category: Medical (2) Osteoarthritis of right knee: Code(s): M17.11 - Unilateral primary osteoarthritis, right knee Category: Medical Plan Ms. Espinoza presents with bilateral knee pains due to osteoarthritis. The risks and benefits of bilateral knee Durolane viscosupplementation injections were discussed at length with the patient. The patient wished to proceed. She tolerated the injections well. She will continue with her home exercise program. She will contact me prior to her follow-up appointment in 3 months should any questions or concerns arise. Feel free to call me at any time should questions regarding her orthopedic management arise. I spent 22 minutes in reviewing the patient's records and imaging studies, seeing the patient and documenting in the medical record. Orders: Orders AMB Joint Injection/Aspiration Today M17.12 - Unilateral primary osteoarthritis, left knee AMB Joint Injection/Aspiration Today M17.11 - Unilateral primary osteoarthritis, right knee Coding Level of Care Code Est Pt Level 3 (47346) Complex EM visit Add On G2211 Diagnoses Osteoarthritis of left knee M17.12 Osteoarthritis of right knee M17.11 CPT Codes Coding - 87787 Large joint: 31721 - Large joint ([id number]) Coding - 54641 Large joint: 78259 - Large joint ([id number])
[2025-05-13 11:36] VITALS: BMI 33.3
--- OUTSIDE RECORDS SUMMARY | 2025-05-13 13:59 | XMS_ITS | Patient Health Record ---
Author Organization [facility] Address [address] [facility] [place] [address] Care Team Providers Care Product Support Technician Name Role Phone Sabino PARKER, Anny Dominique Primary Care Provider Un available Aristidessebas Sarah Unavailable [phone] Allergies No Known Allergies Reason For Referral [...] Problem Acquired hammer toe of right foot (0038150500010899) Other hammer toe(s) (acquired), right foot (M20.41) Active confirmed Problem Localized, primary osteoarthritis of the ankle and/or foot (149439321) Arthritis of joint of lesser toe, right (M19.071) Active confirmed Vital Signs Blood pressure diastolic 65 mm Hg 02/12/2025 Height 5ft5in in 02/12/2025 Blood pressure systolic 127 mm Hg 02/12/2025 Weight 205 lbs 02/12/2025 BMI 34.11 kg/m2 02/12/2025 Encounters Encounter Location Date Provider Diagnosis [address] [address] 07/12/2024 Sarah Leyla Other hammer toe(s) (acquired), right foot M20.41 ; Onychomycosis B35.1 ; Pain in left toe(s) M79.675 and Pain in left foot M79.[address] [address] 10/11/2024 Sarah Mayer Onychomycosis B35.1 ; Pain in left toe(s) M79.675 and Pain in left foot M79.[address] [address] 02/12/2025 Sarah Mayer Onychomycosis B35.1 ; Pain in [...] Pain in left foot (ICD-10 - M79.672) 07/12/2024 Pain in left toe(s) (ICD-10 - M79.675) 07/12/2024 Pain in left foot (ICD-10 - M79.672) 02/12/2025 Pain in left foot (ICD-10 - M79.672) Plan Of Treatment Next Appt Details Provider Name:Sarah Mullen Aristides mullen, 06/25/2025 11:00:00 AM, [address] [place], [address], Insurance Providers Payer Name Payer Address Payer Phone Subscriber Number Group Number Insured Name Patient Relationship to Insured Coverage Start Date Coverage End Date [employer] [id number] [address] [place] [address] [id number] Yvonne Espinoza Self - patient is [...]
--- OUTSIDE RECORDS SUMMARY | 2025-05-13 14:00 | XMS_ITS | Patient Health Record ---
Author Organization [facility] Physician Katlyn coronado Billing Info Address [address] [place], [place] [id number] Care Team Providers Care Supervisor Liquefaction Name Role Phone MICHELLE BARRIOS Unavailable [phone] Allergies Allergen (clinical drug ingredient) Drug/Non Drug [...] Start Date Coverage End Date [facility] NON HMO [address] [address] [facility] [place] [id number] Yvonne Espinoza Self - patient is the insured 0 0 Medical (General) History Medical History History ICD Code depression anxiety asthma allergies Surgical History Surgery Date(Month/Year) hip replacement with revision in 2020 du e to infection 2018
== END 2025-05-13 11:53 | disposition home or self-care (01) ==
LOC: HO.HOS 11:23
PROVIDERS: PCP Internal Medicine; Visit Provider Orthopaedic Surgery
DX: M17.0 Bilateral primary osteoarthritis of knee (principal)
CPT/HCPCS: 20610; 99213

== ENCOUNTER → 2025-05-13 11:23 | Outpatient (BNVA) | payer MEDICARE, SELFPAY | PROVIDERS: PCP Internal Medicine; Visit Provider Orthopaedic Surgery | DX: M17.0 Bilateral primary osteoarthritis of knee (principal) | CPT/HCPCS: 20610; 99212; J2003; J7318 ==